=== PATIENT | male | born 1950 | race Caucasian/White ===

== ENCOUNTER → 2017-09-05 13:54 | Outpatient (CLI) | payer MEDICARE, MEDICAID, SELFPAY ==
--- NOTE | 2017-09-05 | DI.RAD.S_ITS ---
PROCEDURE: XR CHEST 2V INDICATIONS: SHORTNESS OF BREATH TECHNIQUE: 2 views of the chest were acquired. COMPARISON: [facility], CHEST 2 VIEW, 04/25/2014, 12:22. [facility], CHEST 2 VIEW, 08/12/2013, 14:53. [facility], CHEST 2 VIEW, 04/21/2017, 9:56. FINDINGS: Surgical changes and devices: None. Lungs and pleura: No pleural effusions or pneumothorax. Lungs are clear. Lung volumes are increased with flattening of the hemidiaphragms suggesting COPD. Mediastinum: Mediastinal contours are normal. Heart size is normal. Bones and chest wall: No suspicious bony abnormalities. Soft tissues appear unremarkable. IMPRESSION: No acute cardiopulmonary disease. COPD, no acute disease, no pneumothorax present. Dictated by: Alok CORONA Interpreted: Josh Fitzpatrick MD on 09/05/2017 at 14:08 Approved by: Neftali Jeff M.D. on 09/05/2017 at 16:06
== END ==
PROVIDERS: PCP Family Medicine; Visit Provider Registered Nurse
DX: R06.02 Shortness of breath (principal); J44.9 Chronic obstructive pulmonary disease, unspecified
CPT/HCPCS: 71046

== ENCOUNTER → 2019-05-21 16:40 | Outpatient (CLI) | payer MEDICARE, MEDICAID, SELFPAY ==
--- NOTE | 2019-05-21 16:42 | DI.RAD.S_ITS ---
PROCEDURE: XR CHEST 2V INDICATIONS: Productive cough, r/o COPD TECHNIQUE: 2 views of the chest were acquired. COMPARISON: [facility], CR, XR CHEST 2V, 09/05/2017, 13:37. FINDINGS: Surgical changes and devices: None. Lungs and pleura: Emphysematous change. Minimal infiltrate, extreme left lung base. No pleural effusions or pneumothorax. Mediastinum: Mediastinal contours are normal. Heart size is normal. Bones and chest wall: No suspicious bony abnormalities. Soft tissues appear unremarkable. IMPRESSION: COPD. Small focal pneumonia, left lung base. Dictated by: Wili Herrera M.D. on 05/21/2019 at 17:12 Approved by: Wili Herrera M.D. on 05/21/2019 at 17:13
== END ==
PROVIDERS: PCP Family Medicine; Referring Provider Family Medicine; Visit Provider Family Medicine
DX: J18.9 Pneumonia, unspecified organism (principal); R05 Cough; J44.9 Chronic obstructive pulmonary disease, unspecified
CPT/HCPCS: 71046

== ENCOUNTER → 2020-05-09 15:00 | Outpatient (CLI) | payer MEDICARE, MEDICAID, SELFPAY ==
--- NOTE | 2020-05-09 15:02 | DI.RAD.S_ITS ---
PROCEDURE: XR CHEST 2V INDICATIONS: cough TECHNIQUE: 2 views of the chest were acquired. COMPARISON: [facility], CR, XR CHEST 2V, 09/05/2017, 13:37. [facility], CR, XR CHEST 2V, 05/21/2019, 16:39. FINDINGS: Surgical changes and devices: None. Lungs and pleura: Lungs are hyperinflated. There are infiltrates lung base and small pleural effusions bilaterally. Chronic interstitial prominence is present. No pneumothorax. Mediastinum: Mediastinal contours are normal. Heart size is normal. Bones and chest wall: No suspicious bony abnormalities. Soft tissues appear unremarkable. IMPRESSION: 1. Infiltrates in lung base and small pleural effusions bilaterally. 2. Hyperinflation consistent with COPD. Dictated by: Alis Reyna M.D. on 05/09/2020 at 16:46 Approved by: Alis Reyna M.D. on 05/09/2020 at 16:48
== END ==
PROVIDERS: PCP Family Medicine; Referring Provider Family Medicine; Visit Provider Family Medicine
DX: R05 Cough (principal); J90 Pleural effusion, not elsewhere classified
CPT/HCPCS: 71046

== ENCOUNTER 2020-09-06 12:14 | Observation (INO) | payer MEDICARE, MEDICAID, SELFPAY ==
[2020-09-06] VITALS (14 sets, daily range): BP systolic 102–144; BP diastolic 68–92; PULSE 79–104; RESP 18–28; TEMP 36.4–36.9; O2SAT 85–95; BMI 19.5
--- NOTE | 2020-09-06 12:22 | ED_ITS ---
HPI - SOB/Dyspnea General Chief Complaint: Shortness of Breath/Dyspnea Stated Complaint: LOW OXYGEN Time Seen by Provider: 09/06/20 12:18 Source: patient Mode of arrival: Wheelchair Limitations: no limitations History of Present Illness HPI Narrative: 70-year-old male daily smoker with history of COPD presents in a wheelchair from his primary care office due to low oxygen in the 70s and 80s. He states he has been feeling poorly for the past few weeks and has been coughing more than normal. He states he has been hospitalized in months if not years. He denies any fever or chills. He has no chest pain and denies recent travel, history of blood clot or known cancer. Minimal exertion makes him profoundly short of breath. He denies any weight gain or swelling of lower extremities. He was at his primary care office for evaluation and upon realization of his abnormal vitals was put on 2 L of oxygen and sent down here in a wheelchair MD Complaint: shortness of breath and cough Onset (ago): day(s) Severity: severe Consistency/Duration: constant Relieving factors: oxygen and rest Exacerbating factors: exertion Known history of: COPD Associated symptoms: cough Treatment prior to arrival: oxygen Related Data Home oxygen amount: 2 liters Home Medications Medication Instructions Recorded Confirmed albuterol sulfate 90 mcg/actuation 2 puff INHALATION QID PRN gram 09/06/20 aerosol inhaler Previous Rx's Medication Instructions Recorded ipratropium 20 mcg-albuterol 100 1 puff INHALATION Q4H #4 g 05/09/20 mcg/actuation mist for inhalation Allergies Allergy/AdvReac Type Severity Reaction Status Date / Time No Known Drug Allergies Allergy Verified 09/06/20 11:25 Review of Systems Constitutional Constitutional: Denies chills, Denies fatigue, Denies fever(s), Denies frequent falls, Denies lethargy and Denies weakness Eyes Eyes: Denies change in vision, Denies eye discharge, Denies irritation and Denies loss of vision ENT Ears, Nose, Mouth, and Throat: Denies change in voice, Denies dizziness, Denies neck pain, Denies sore throat and Denies throat swelling Cardiovascular Cardiovascular: Denies chest pain, Denies irregular heart rhythm, Denies ligh theadedness, Denies palpitations, Reports dyspnea, Denies dyspnea on exertion and Denies orthopnea Respiratory Respiratory: Reports cough, Reports dyspnea, Denies dyspnea on exertion and Denies wheezing Gastrointestinal Gastrointestinal: Denies abdominal pain, Denies change in bowel habits, Denies diarrhea, Denies nausea and Denies vomiting Musculoskeletal Musculoskeletal: Denies neck pain and Denies numbness Integumentary/Breasts Skin/Breast: Denies pruritus, Denies erythema, Denies rash and Denies wounds Neurologic Neurologic: Denies behavioral changes, Denies confusion, Denies dizziness, Denies frequent falls, Denies loss of vision, Denies numbness and Denies weakness Psychiatric Psychiatric: Denies anxiety, Denies behavioral changes, Denies confusion, Denies depression, Denies homicidal ideation and Denies suicidal ideation Endocrine Endocrine: Denies fatigue, Denies flushing and Denies palpitations Hematologic/Lymphatic Hematologic/Lymphatic: Denies easy bruising Allergic/Immunologic Allergic/Immunologic: Denies urticaria, Denies throat swelling and Denies wheezing Patient History Medical History (Updated 09/06/20 @ 14:27 by Sunday Bhakta DO) Acute bronchitis Chronic cough (2017) Fractures (Unknown) Partial blindness (Unknown) Schizophrenia (Unknown) Substance abuse (Unknown) Surgical History History of open reduction and internal fixation (ORIF) procedure (Unknown) Social History Smoking Status: Current every day smoker (1/2 ppd ) Tobacco: How many years used: 45 quit status: considering quitting second hand exposure: Yes alcohol intake: current (18 beers per day ) substance use type: does not use Smoking Status: Current every day smoker (1/2 ppd ) Exam Narrative Exam Narrative: GENERAL: [70] year old patient appears stated age. Thin, in moderate distress, increased work of breathing, 5 word sentences HEAD: Atraumatic. Normocephalic. EYES: Pupils equal round and reactive. Extraocular motions intact. No scleral icterus. No injection or drainage. ENT: Nose without bleeding, purulent drainage. Throat without erythema, tonsillar hypertrophy or exudate. Airway patent. NECK: Trachea midline. Non tender CARDIOVASCULAR: Regular rate and rhythm without murmurs, gallops, or rubs. RESPIRATORY: Decreased breath sounds bilaterally with prolonged expiratory phase, wheezes in bilateral apices GASTROINTESTINAL: Abdomen soft, non-tender, nondistended. EXTREMITIES: No edema or joint tenderness. BACK: Nontender without deformity or crepitance. No flank tenderness. NEURO: AOx3. SKIN: No rash or erythema of visible areas Initial Vital Signs Initial Vital Signs: Vital Signs Temperature 97.5 F L 09/06/20 12:16 Pulse Rate 100 H 09/06/20 12:16 Respiratory Rate 18 09/06/20 12:16 Blood Pressure 144/92 H 09/06/20 12:16 Pulse Oximetry 87 L 09/06/20 12:16 Course Orders Ordered: ED Orders 09/06/20 12:23 Consult to Respiratory Therapy Evaluate & Treat EKG-12 Lead Stat 09/06/20 12:24 XR chest 1V Stat 09/06/20 12:32 Blood Culture Stat Complete Blood Count AUTO DIFF Stat Comprehensive Metabolic Panel Stat D Dimer Stat Lactate (Lactic Acid) Stat Magnesium Stat NT-proBNP (BNP-Adult 18+) Stat Procalcitonin Stat Troponin & CK Cardiac Panel Stat 09/06/20 12:50 Arterial Blood Gas Stat 09/06/20 12:52 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) Stat 09/06/20 13:09 CT angio chest PE protocol Stat Discontinued Medications Albuterol/Ipratropium (Albuterol/Ipratropium 3 Ml Ampul) 3 ml INH NOW ONE Stop: 09/06/20 12:24 Last Admin: 09/06/20 13:04 Dose: 3 ml Documented by: QUINN Sodium Chloride (Normal Saline 0.9%) 1,000 mls @ 1,000 mls/hr IV BOLUS ONE Stop: 09/06/20 13:22 Last Admin: 09/06/20 13:01 Dose: 1,000 mls/hr Documented by: ELHAM Levofloxacin (Levaquin) 750 mg in 150 mls @ 100 mls/hr IV NOW ONE Stop: 09/06/20 13:52 Last Admin: 09/06/20 13:50 Dose: 100 mls/hr Documented by: ELHAM Methylprednisolone (Methylprednisolone 125 Mg/2 Ml Vial) 125 mg IV NOW ONE Stop: 09/06/20 12:24 Last Admin: 09/06/20 13:01 Dose: 125 mg Documented by: ELHAM Vital Signs Vital signs: Vital Signs - 8 hr 09/06/20 12:16 09/06/20 13:21 Temperature 97.5 F L Pulse Rate 100 H 79 Respiratory Rate 18 20 Blood Pressure 144/92 H Pulse Oximetry 87 L 91 MDM - SOB/Dyspnea Lab Data Result diagrams: 09/06/20 12:32 09/06/20 12:32 Labs: Lab Results 09/06/20 09/06/20 09/06/20 Range/Units 12:32 12:32 12:32 WBC 11.5 H (4.5-11.0) X10^3/uL RBC 5.28 (4.5-5.9) X10^6/uL Hgb 16.4 (13.5-17.5) g/dL Hct 49.3 (41-53) % MCV 93.3 (80-100) fL MCH 31.0 (26-34) PG MCHC 33.2 (30-36) % RDW 13.9 (11.6-14.8) % Plt Count 411 H (150-400) X10^3/uL Neut % (Auto) 68.3 (50-75) % Lymph % (Auto) 16.7 L (25-40) % [place] % (Auto) 10.9 (3-14) % Eos % (Auto) 2.9 (2-4) % Baso % (Auto) 1.2 (0-2) % Neut # (Auto) 7900 H (1702-0181) /uL Lymph # (Auto) 1900 (9227-7946) /uL [place] # (Auto) 1300 H (0-900) /uL Eos # (Auto) 300 (0-450) /uL Baso # (Auto) 100 (0-100) /uL D-Dimer 1024 H (<230) ng/mL ABG pH (7.35-7.45) ABG pCO2 (35-45) mmHg ABG pO2 (80-100) mmHg ABG HCO3 (22-26) mmol/L ABG Total CO2 (21-31) mmol/L ABG O2 Saturation (95-100) % ABG Base Excess (-2-2) mmol/L FiO2 Sodium 133 L (137-145) mmol/L Potassium 4.1 (3.4-5.1) mmol/L Chloride 97 L (98-107) mmol/L Carbon Dioxide 29 (22-32) mmol/L BUN 4 L (9-20) mg/dL Creatinine 0.57 L (0.66-1.25) mg/dL Estimated GFR > 60.0 (>60) mL/min BUN/Creatinine Ratio 7.0 (6-22) Glucose 83 (80-110) mg/dL Lactate (0.7-2.1) mmol/L Calcium 9.4 (8.4-10.2) mg/dL Magnesium 1.9 (1.6-2.3) mg/dL Total Bilirubin 0.6 (0.2-1.3) mg/dL AST 34 (17-59) IU/L ALT 12 (<50) IU/L Alkaline Phosphatase 77 (38-126) U/L Total Creatine Kinase 47 L (55-170) U/L CK-MB (CK-2) TNP CK-MB (CK-2) Rel Index TNP Troponin I < 0.012 (0.01-0.034) ng/mL NT-Pro-B Natriuret Pep (<125) pg/mL Total Protein 7.9 (6.3-8.2) g/dL Albumin 4.2 (3.5-5.0) g/dL Globulin 3.7 (1.7-4.1) g/dL Albumin/Globulin Ratio 1.1 (1.0-2.8) Procalcitonin 0.03 (<0.5) ng/mL SARS-CoV-2 (PCR) (Negative) 09/06/20 09/06/20 09/06/20 Range/Units 12:32 12:32 12:50 WBC (4.5-11.0) X10^3/uL RBC (4.5-5.9) X10^6/uL Hgb (13.5-17.5) g/dL Hct (41-53) % MCV (80-100) fL MCH (26-34) PG MCHC (30-36) % RDW (11.6-14.8) % Plt Count (150-400) X10^3/uL Neut % (Auto) (50-75) % Lymph % (Auto) (25-40) % [place] % (Auto) (3-14) % Eos % (Auto) (2-4) % Baso % (Auto) (0-2) % Neut # (Auto) (2087-4485) /uL Lymph # (Auto) (9091-8237) /uL [place] # (Auto) (0-900) /uL Eos # (Auto) (0-450) /uL Baso # (Auto) (0-100) /uL D-Dimer (<230) ng/mL ABG pH 7.39 (7.35-7.45) ABG pCO2 45.3 H (35-45) mmHg ABG pO2 57 L (80-100) mmHg ABG HCO3 27 H (22-26) mmol/L ABG Total CO2 29 (21-31) mmol/L ABG O2 Saturation 89 L (95-100) % ABG Base Excess 2.0 (-2-2) mmol/L FiO2 0.21 Sodium (137-145) mmol/L Potassium (3.4-5.1) mmol/L Chloride (98-107) mmol/L Carbon Dioxide (22-32) mmol/L BUN (9-20) mg/dL Creatinine (0.66-1.25) mg/dL Estimated GFR (>60) mL/min BUN/Creatinine Ratio (6-22) Glucose (80-110) mg/dL Lactate 1.4 (0.7-2.1) mmol/L Calcium (8.4-10.2) mg/dL Magnesium (1.6-2.3) mg/dL Total Bilirubin (0.2-1.3) mg/dL AST (17-59) IU/L ALT (<50) IU/L Alkaline Phosphatase (38-126) U/L Total Creatine Kinase (55-170) U/L CK-MB (CK-2) CK-MB (CK-2) Rel Index Troponin I (0.01-0.034) ng/mL NT-Pro-B Natriuret Pep 174 H (<125) pg/mL Total Protein (6.3-8.2) g/dL Albumin (3.5-5.0) g/dL Globulin (1.7-4.1) g/dL Albumin/Globulin Ratio (1.0-2.8) Procalcitonin (<0.5) ng/mL SARS-CoV-2 (PCR) (Negative) 09/06/20 Range/Units 12:52 WBC (4.5-11.0) X10^3/uL RBC (4.5-5.9) X10^6/uL Hgb (13.5-17.5) g/dL Hct (41-53) % MCV (80-100) fL MCH (26-34) PG MCHC (30-36) % RDW (11.6-14.8) % Plt Count (150-400) X10^3/uL Neut % (Auto) (50-75) % Lymph % (Auto) (25-40) % [place] % (Auto) (3-14) % Eos % (Auto) (2-4) % Baso % (Auto) (0-2) % Neut # (Auto) (3200-8970) /uL Lymph # (Auto) (7913-0173) /uL [place] # (Auto) (0-900) /uL Eos # (Auto) (0-450) /uL Baso # (Auto) (0-100) /uL D-Dimer (<230) ng/mL ABG pH (7.35-7.45) ABG pCO2 (35-45) mmHg ABG pO2 (80-100) mmHg ABG HCO3 (22-26) mmol/L ABG Total CO2 (21-31) mmol/L ABG O2 Saturation (95-100) % ABG Base Excess (-2-2) mmol/L FiO2 Sodium (137-145) mmol/L Potassium (3.4-5.1) mmol/L Chloride (98-107) mmol/L Carbon Dioxide (22-32) mmol/L BUN (9-20) mg/dL Creatinine (0.66-1.25) mg/dL Estimated GFR (>60) mL/min BUN/Creatinine Ratio (6-22) Glucose (80-110) mg/dL Lactate (0.7-2.1) mmol/L Calcium (8.4-10.2) mg/dL Magnesium (1.6-2.3) mg/dL Total Bilirubin (0.2-1.3) mg/dL AST (17-59) IU/L ALT (<50) IU/L Alkaline Phosphatase (38-126) U/L Total Creatine Kinase (55-170) U/L CK-MB (CK-2) CK-MB (CK-2) Rel Index Troponin I (0.01-0.034) ng/mL NT-Pro-B Natriuret Pep (<125) pg/mL Total Protein (6.3-8.2) g/dL Albumin (3.5-5.0) g/dL Globulin (1.7-4.1) g/dL Albumin/Globulin Ratio (1.0-2.8) Procalcitonin (<0.5) ng/mL SARS-CoV-2 (PCR) Negative (Negative) Urine Dip Bedside Urine Glucose Negative Bedside Urine Bilirubin - Negative Bedside Urine Ketone - Negative Urine Specific [place] 1.015 Bedside Urine Occult Blood - Negative Bedside Urine pH 6.0 Bedside Urine Protein - Negative Bedside Urine Urobilinogen - Negative Bedside Urine Nitrite - Negative Bedside Urine Leukocytes - Negative Esterase Imaging Data Chest x-ray: Radiologist's Impression: [address] [id number] ReportSigned Patient: Fabiano Rivera EMR#: [id number]: 1950cct:[id number]/Sex: 70 / MDate of Service: 09/06/20Loc: EDAccession Number: [id number] Procedure: XR chest 1V Ordering Provider: Sunday Bhakta D.O. PROCEDURE: XR CHEST 1V INDICATIONS: cough, SOB, hypoxemia TECHNIQUE: One view of the chest was acquired. COMPARISON: [facility], , XR CHEST 2V, 05/09/2020, 15:03. [facility], CR, XR CHEST 2V, 05/21/2019, 16:39. FINDINGS: Surgical changes and devices: None. Lungs and pleura: Lungs are abnormal, with pulmonary hyperexpansion and what appears to be potentially a mild or early pneumonia at the left lung base.. No pleural effusions or pneumothorax. Mediastinum: Mediastinal contours appear normal. Heart size is normal. Bones and chest wall: No suspicious bony lesions. Overlying soft tissues appear unremarkable. IMPRESSION: Possible mild or early pneumonia at the left lung base, just above the diaphragm. Pulmonary hyperexpansion, consistent with COPD. Dictated by: Neftali Jeff M.D. on 09/06/2020 at 13:08 CT scan - chest: Radiologist's Impression: [address] [id number] Scan ReportSigned Patient: Fabiano Rivera EMR#: [id number]: 1950cct:[id number]/Sex: 70 / MDate of Service: 09/06/20Loc: EDAccession Number: [id number] Procedure: CT angio chest PE protocol Ordering Provider: Sunday Bhakta D.O. PROCEDURE: CT ANGIO CHEST PE PROTOCOL INDICATIONS: hypoxemia, cough, tachycardia, Dimer critical TECHNIQUE: After the administration of intravenous contrast, 2 mm thick sections acquired from the pulmonary apices to the posterior costophrenic angles. 3-dimensional maximum intensity projection (MIP) coronal and sagittal reformats were then acquired through the thorax. For radiation dose reduction, the following was used: automated exposure control, adjustment of mA and/or kV according to patient size. COMPARISON: [facility], CT, THORAX WITHOUT CONTRAST, 06/12/2017, 12:53. FINDINGS: Image quality: Excellent. Pulmonary arteries: Pulmonary arteries are normal in size, and demonstrate no intraluminal filling defects to suggest central pulmonary embolism. Lungs and pleura: No focal infiltrate. Emphysematous changes noted in the lung apices. There is central bronchial wall smooth thickening noted bilaterally which may reflect an element of bronchitis. Bibasilar atelectasis noted, with minimal nodularity.. Pleural calcification noted on the right, stable from the prior. There is a 7 mm spiculated nodule in the mid left upper lobe Mediastinum: Heart size is normal, without pericardial effusion. Several prominent mediastinal nodes are present measuring up to 1.4 cm and the aortic pulmonary window. Small bilateral hilar nodes measure up to 1.2 cm in short axis.. Thoracic aorta is normal in caliber and enhancement. Esophagus is normal in caliber, without hiatal hernia. Dense coronary artery vascular calcification present Bones and chest wall: No suspicious bony lesions. Ribs and thoracic spine appear intact throughout. Thyroid gland unremarkable. No axillary or supraclavicular adenopathy. Abdomen: Visualized upper abdominal solid organs appear normal in the early arterial phase of enhancement. IMPRESSION: No evidence of pulmonary embolism, aortic dissection or aneurysm. Smooth central bronchial wall thickening associated with mediastinal adenopathy may reflect bronchitis with reactive adenopathy. Left upper lobe 7 mm spiculated nodule with bibasilar nodular atelectasis and mediastinal adenopathy, new from 2018 study, in a background of emphysematous changes. While this may reflect inflammatory or infectious nodule, consider follow-up PET-CT and/or six-month follow-up to assess for neoplastic etiology Dictated by: Tereso Lopez M.D. on 09/06/2020 at 12:56 Approved by: Tereso Lopez M.D. on 09/06/2020 at 13:16 MDM Narrative Medical decision making narrative: Patient quite hypoxemic on initial exam with increased work of breathing. Labs and imaging have been reassuring. ABG however does note PO2 of 57 on room air. He does feel slight improvement after above-stated therapies but minimal exertion including and ambulation to the bathroom, which is right next door causes significant decompensation and pulse ox back into the 80s. Patient requires hospitalization for stabilization of his condition. Discharge Plan Departure Patient Disposition: Admitted As Inpatient Clinical Impression: Acute exacerbation of chronic obstructive pulmonary disease, Acute hypoxemic respiratory failure
--- NOTE | 2020-09-06 12:32 | PC.NURSE ---
pt states he drinks about 18 beers a day.
[2020-09-06 12:55] LABS: Add Manual Diff / Slide Review NO; Basophils Absolute Auto 100 /uL (0-100); Basophils Percent Auto 1.2 % (0-2); Eosinophils Absolute Auto 300 /uL (0-450); Eosinophils Percent Auto 2.9 % (2-4); Hematocrit 49.3 % (41-53); Hemoglobin 16.4 g/dL (13.5-17.5); Lymphocytes Absolute Auto 1900 /uL (1100-4500); Lymphocytes Percent Auto 16.7 % (25-40); Mean Corpuscular HGB Conc 33.2 % (30-36); Mean Corpuscular Volume 93.3 fL (80-100); Monocytes Absolute Auto 1300 /uL (0-900); Monocytes Percent Auto 10.9 % (3-14); Neutrophils Absolute Auto 7900 /uL (1500-7000); Neutrophils Percent Auto 68.3 % (50-75); Platelet Count 411 X10^3/uL (150-400); Red Blood Cell Count 5.28 X10^6/uL (4.5-5.9); Red Cell Distribution Width 13.9 % (11.6-14.8); White Blood Cell Count 11.5 X10^3/uL (4.5-11.0)
[2020-09-06 12:59] LABS: D Dimer 1024 ng/mL (<230)
[2020-09-06] MEDS: methylPREDNISolone 125 MG/2 ML VIAL IV (13:01)
[2020-09-06] MEDS: SODIUM CHLORIDE 0.9% 1,000 ML 1000 ML IV (13:01)
[2020-09-06] MEDS: ALBUTEROL/IPRATROPIUM 3 ML AMPUL INH ×2 (13:04→22:22)
[2020-09-06 13:05] LABS: Lactate (Lactic Acid) 1.4 mmol/L (0.7-2.1)
[2020-09-06 13:06] LABS: Alanine Aminotransferase 12 IU/L (<50); Albumin 4.2 g/dL (3.5-5.0); Albumin Globulin Ratio 1.1 (1.0-2.8); Alkaline Phosphatase 77 U/L (38-126); Aspartate Aminotransferase 34 IU/L (17-59); Bilirubin Total 0.6 mg/dL (0.2-1.3); Blood Urea Nitrogen 4 mg/dL (9-20); Calcium 9.4 mg/dL (8.4-10.2); Carbon Dioxide 29 mmol/L (22-32); Chloride 97 mmol/L (98-107); Creatine Kinase 47 U/L (55-170); Estimated Glomerular Filt Rate > 60.0 mL/min (>60); Globulin 3.7 g/dL (1.7-4.1); Glucose 83 mg/dL (80-110); Magnesium 1.9 mg/dL (1.6-2.3); Potassium 4.1 mmol/L (3.4-5.1); Sodium 133 mmol/L (137-145); Total Protein 7.9 g/dL (6.3-8.2)
[2020-09-06 13:08] LABS: HEMOLYSIS 51 (0-50)
--- NOTE | 2020-09-06 13:09 | DI.CT.S_ITS ---
PROCEDURE: CT ANGIO CHEST PE PROTOCOL INDICATIONS: hypoxemia, cough, tachycardia, Dimer critical TECHNIQUE: After the administration of intravenous contrast, 2 mm thick sections acquired from the pulmonary apices to the posterior costophrenic angles. 3-dimensional maximum intensity projection (MIP) coronal and sagittal reformats were then acquired through the thorax. For radiation dose reduction, the following was used: automated exposure control, adjustment of mA and/or kV according to patient size. COMPARISON: [facility], CT, THORAX WITHOUT CONTRAST, 06/12/2017, 12:53. FINDINGS: Image quality: Excellent. Pulmonary arteries: Pulmonary arteries are normal in size, and demonstrate no intraluminal filling defects to suggest central pulmonary embolism. Lungs and pleura: No focal infiltrate. Emphysematous changes noted in the lung apices. There is central bronchial wall smooth thickening noted bilaterally which may reflect an element of bronchitis. Bibasilar atelectasis noted, with minimal nodularity.. Pleural calcification noted on the right, stable from the prior. There is a 7 mm spiculated nodule in the mid left upper lobe Mediastinum: Heart size is normal, without pericardial effusion. Several prominent mediastinal nodes are present measuring up to 1.4 cm and the aortic pulmonary window. Small bilateral hilar nodes measure up to 1.2 cm in short axis.. Thoracic aorta is normal in caliber and enhancement. Esophagus is normal in caliber, without hiatal hernia. Dense coronary artery vascular calcification present Bones and chest wall: No suspicious bony lesions. Ribs and thoracic spine appear intact throughout. Thyroid gland unremarkable. No axillary or supraclavicular adenopathy. Abdomen: Visualized upper abdominal solid organs appear normal in the early arterial phase of enhancement. IMPRESSION: No evidence of pulmonary embolism, aortic dissection or aneurysm. Smooth central bronchial wall thickening associated with mediastinal adenopathy may reflect bronchitis with reactive adenopathy. Left upper lobe 7 mm spiculated nodule with bibasilar nodular atelectasis and mediastinal adenopathy, new from 2018 study, in a background of emphysematous changes. While this may reflect inflammatory or infectious nodule, consider follow-up PET-CT and/or six-month follow-up to assess for neoplastic etiology Dictated by: Tereso Lopez M.D. on 09/06/2020 at 12:56 Approved by: Tereso Lopez M.D. on 09/06/2020 at 13:16
[2020-09-06 13:15] LABS: NT-proBNP (BNP-Adult 18+) 174 pg/mL (<125)
[2020-09-06 13:18] LABS: Troponin I < 0.012 ng/mL (0.01-0.034)
[2020-09-06 13:22] LABS: Procalcitonin 0.03 ng/mL (<0.5)
[2020-09-06] MEDS: levoFLOXacin 750 MG/150 ML PIGGYBACK 100 MG IV (13:50)
[2020-09-06 13:56] LABS: COVID19 - ADMIT (NP swab/PCR) Negative (Negative)
[2020-09-06 14:24] LABS: Fractionated Inspired Oxygen 0.21; HCO3 ABG 27 mmol/L (22-26); Oxygen Saturation ABG 89 % (95-100); PCO2 ABG 45.3 mmHg (35-45); PO2 ABG 57 mmHg (80-100); TCO2 ABG 29 mmol/L (21-31); pH ABG 7.39 (7.35-7.45)
--- NOTE | 2020-09-06 16:59 | PM.HP.1 ---
History of Present Illness History of Present Illness Date Patient Seen: 09/06/20 Time Patient Seen: 16:01 Chief complaint: LOW OXYGEN Narrative: Mr. Rivera is a 70M who is a daily smoker, EtOH abuse, COPD who comes in from his PCP for O2 sats in the 70s-80s. He states he has been short of breath for a few weeks, he has been having a cough that is productive of mild amounts of sputum. He has no fevers/chills. He has right sided chest pain. He gets short of breath with minimal exertion. He is not on oxygen at home. He does have 2 inhalers at home, one he uses twice a day, another is a rescue which he has not been using. He has lost 10lbs in the last few weeks. He has right sided chest pain that is tender to touch. In the ED, workup was done he was noted to be tachycardic in the 100s-110s and sats in the 80s on room air. He was placed on oxygen. He received methylpred, and nebulizers, and azithromycin. When I saw him after this he was trialed off oxygen and he dropped to 84-85% on room air while talking. Labs notable for WBC of 11.5, hgb 16.4, d-dimer 1024. ABG showed pCO2 of 45, paO2 of 57. Creatinine 0.57. Trop ok. Lactate ok. Procalcitonin 0.03. COVID negative, respiratory panel negative. Chest xray shows possible early pneumonia at left lung base, hyperexpanded lungs. CTA shows no PE, bronchial wall thickening. Left upper lobe 7mm spiculated nodule, bibasilar atelectasis. He was admitted for further treatment. Family history: Mother with diabetes Patient History Medical History Acute bronchitis Atypical ductal hyperplasia of right breast Chronic cough (2017) Fractures (Unknown) Partial blindness (Unknown) Schizophrenia (Unknown) Substance abuse (Unknown) Surgical History History of open reduction and internal fixation (ORIF) procedure (Unknown) Family & Social History Social History: household members none Prior Living Arrangements House Safety & Behavioral: Feels Safe in Current Yes Environment Been Physically Hurt or No Threatened By a Person Suicidal Ideation Description None Suicide Plan Description No Plan Tobacco & Substance use: Tobacco type cigarettes Smoking Status Current every day smoker Smoking packs per day 0.5 alcohol intake current alcohol intake frequency 3 or more drinks per day Substance Use Type marijuana Meds Home Medications and Allergies Home Medications Medication Instructions Recorded Confirmed Type ipratropium 20 mcg-albuterol 100 1 puff INHALATION Q4H #4 g 05/09/20 09/06/20 Rx mcg/actuation mist for inhalation albuterol sulfate 90 mcg/actuation 2 puff INHALATION QID PRN gram 09/06/20 09/06/20 History aerosol inhaler Allergies Allergy/AdvReac Type Severity Reaction Status Date / Time No Known Drug Allergies Allergy Verified 09/06/20 11:25 Review of Systems Review of Systems Narrative: 14 systems reviewed and negative aside from HPI Exam Vital Signs (past 8 hours): - 09/06/20 12:16 09/06/20 12:23 09/06/20 12:30 Temperature 97.5 F L Pulse Rate 100 H 95 H 93 H Respiratory Rate 18 Blood Pressure 144/92 H Pulse Oximetry 87 L 92 85 L 09/06/20 12:32 09/06/20 13:00 09/06/20 13:21 Temperature Pulse Rate 92 H 88 79 Respiratory Rate 20 Blood Pressure 126/76 128/81 Pulse Oximetry 90 L 91 91 09/06/20 13:30 09/06/20 14:00 09/06/20 14:30 Temperature Pulse Rate 80 88 88 Respiratory Rate Blood Pressure 122/71 Pulse Oximetry 94 93 94 09/06/20 15:00 09/06/20 15:30 09/06/20 16:55 Temperature 97.6 F Pulse Rate 104 H 102 H 97 H Respiratory Rate 28 H 21 Blood Pressure 123/75 130/72 Pulse Oximetry 88 L 95 95 Oxygen Delivery Method Room Air Oxygen Flow Rate 0 Narrative Exam Narrative: GEN: no acute distress HEENT: PERRL, moist mucous membranes NECK: no JVD, trachea midline CV: RRR, no murmurs PULM: wheezes scattered bilaterally ABD: thin, soft, nontender, nondistended, no organomegaly, normal bowel sounds EXT: warm and well perfused with no edema NEURO: AAOx3, moving all extremities SKIN: no rashes noted PSYCH: pleasant Objective Labs Result Diagrams: 09/06/20 12:32 09/06/20 12:32 Labs: Laboratory Results - last 24 hr 09/06/20 09/06/20 09/06/20 12:32 12:32 12:32 WBC 11.5 H RBC 5.28 Hgb 16.4 Hct 49.3 MCV 93.3 MCH 31.0 MCHC 33.2 RDW 13.9 Plt Count 411 H Neut % (Auto) 68.3 Lymph % (Auto) 16.7 L [place] % (Auto) 10.9 Eos % (Auto) 2.9 Baso % (Auto) 1.2 Neut # (Auto) 7900 H Lymph # (Auto) 1900 [place] # (Auto) 1300 H Eos # (Auto) 300 Baso # (Auto) 100 D-Dimer 1024 H ABG pH ABG pCO2 ABG pO2 ABG HCO3 ABG Total CO2 ABG O2 Saturation ABG Base Excess FiO2 Sodium 133 L Potassium 4.1 Chloride 97 L Carbon Dioxide 29 BUN 4 L Creatinine 0.57 L Estimated GFR > 60.0 BUN/Creatinine Ratio 7.0 Glucose 83 Lactate Calcium 9.4 Magnesium 1.9 Total Bilirubin 0.6 AST 34 ALT 12 Alkaline Phosphatase 77 Total Creatine Kinase 47 L CK-MB (CK-2) TNP CK-MB (CK-2) Rel Index TNP Troponin I < 0.012 NT-Pro-B Natriuret Pep Total Protein 7.9 Albumin 4.2 Globulin 3.7 Albumin/Globulin Ratio 1.1 Procalcitonin 0.03 SARS-CoV-2 (PCR) 09/06/20 09/06/20 09/06/20 12:32 12:32 12:50 WBC RBC Hgb Hct MCV MCH MCHC RDW Plt Count Neut % (Auto) Lymph % (Auto) [place] % (Auto) Eos % (Auto) Baso % (Auto) Neut # (Auto) Lymph # (Auto) [place] # (Auto) Eos # (Auto) Baso # (Auto) D-Dimer ABG pH 7.39 ABG pCO2 45.3 H ABG pO2 57 L ABG HCO3 27 H ABG Total CO2 29 ABG O2 Saturation 89 L ABG Base Excess 2.0 FiO2 0.21 Sodium Potassium Chloride Carbon Dioxide BUN Creatinine Estimated GFR BUN/Creatinine Ratio Glucose Lactate 1.4 Calcium Magnesium Total Bilirubin AST ALT Alkaline Phosphatase Total Creatine Kinase CK-MB (CK-2) CK-MB (CK-2) Rel Index Troponin I NT-Pro-B Natriuret Pep 174 H Total Protein Albumin Globulin Albumin/Globulin Ratio Procalcitonin SARS-CoV-2 (PCR) 09/06/20 12:52 WBC RBC Hgb Hct MCV MCH MCHC RDW Plt Count Neut % (Auto) Lymph % (Auto) [place] % (Auto) Eos % (Auto) Baso % (Auto) Neut # (Auto) Lymph # (Auto) [place] # (Auto) Eos # (Auto) Baso # (Auto) D-Dimer ABG pH ABG pCO2 ABG pO2 ABG HCO3 ABG Total CO2 ABG O2 Saturation ABG Base Excess FiO2 Sodium Potassium Chloride Carbon Dioxide BUN Creatinine Estimated GFR BUN/Creatinine Ratio Glucose Lactate Calcium Magnesium Total Bilirubin AST ALT Alkaline Phosphatase Total Creatine Kinase CK-MB (CK-2) CK-MB (CK-2) Rel Index Troponin I NT-Pro-B Natriuret Pep Total Protein Albumin Globulin Albumin/Globulin Ratio Procalcitonin SARS-CoV-2 (PCR) Negative Assessment & Plan Assessment & Plan narrative: Mr. Rivera is a 70M with PMH of COPD who presents with hypoxemia secondary to acute COPD exacerbation. 1. Acute COPD exacerbation, with acute respiratory failure, with hypoxemia -imaging with no evidence of pneumnia, procalcitonin ok, not volume overloaded, BNP ok -lungs wheezing and patient with sputum production consistent with COPD flare -will order nebs, azithromycin, steroids -does not have oxygen at home, may not be interested if is smoking consistently 2. Left upper lobe spiculate nodule -7mm in size, new from 2018 study -etiology not clear, but possibly neoplastic -patient has mild unintentional weight loss -will need follow up as outpatient with either PET scan or interval CT chest in a few months 3. EtOH abuse -drinks over a pack of beer a day -he has no interest in quitting -will order him for EtOH with meals to prevent withdrawal 4. Protein calorie malnutrition -BMI of 18.6 -dietary consult DIET: regular IVF: none DVT ppx: lovenox 40U sc Code, DNR, proxy is Tico a friend Quality MIPS - Admit I confirm the patient?s Advance Care Plan is present, Code status is documented, Surrogate decision maker is in patient?s record [If Yes, STOP here]: Yes
[2020-09-06] MEDS: AZITHROMYCIN 500 MG in DEXTROSE 5% IN WATER 250 ML IV (17:06)
[2020-09-06 17:14] LABS: Adenovirus Not Detected (Not Detect); B. parapertussis Not Detected (Not Detecte); Bordetella pertussis Not Detected (Not Detecte); Chlamydophila pneumoniae Not Detected (Not Detect); Coronavirus 229E Not Detected (Not Detect); Coronavirus HKU1 Not Detected (Not Detect); Coronavirus NL 63 Not Detected (Not Detect); Coronavirus OC43 Not Detected (Not Detect); Human Metapneumovirus Not Detected (Not Detect); Human Rhinovirus/Enterovirus Not Detected (Not Detect); Influenza A Not Detected (Not Detect); Influenza B Not Detected (Not Detect); Mycoplasma pneumoniae Not Detected (Not Detect); Parainfluenza Virus 1 Not Detected (Not Detect); Parainfluenza Virus 2 Not Detected (Not Detect); Parainfluenza Virus 3 Not Detected (Not Detect); Parainfluenza Virus 4 Not Detected (Not Detect); Respiratory Syncytial Virus Not Detected (Not Detect); SARS- CoV-2 Not Detected (Not Detecte)
--- NOTE | 2020-09-06 21:13 | PC.ADMIT ---
[id number] Admission Note: The patient,Fabiano Rivera,70 y/o, was given written information regarding hospital policies, unit procedures and contact persons. Patient's smoking status: Current every day smoker. Vital Signs - 8 hr 09/06/20 13:21 09/06/20 13:30 09/06/20 14:00 Temperature Pulse Rate 79 80 88 Respiratory Rate 20 Blood Pressure 122/71 Pulse Oximetry 91 94 93 09/06/20 14:30 09/06/20 15:00 09/06/20 15:30 Temperature Pulse Rate 88 104 H 102 H Respiratory Rate 28 H Blood Pressure 123/75 Pulse Oximetry 94 88 L 95 09/06/20 16:55 09/06/20 20:04 Temperature 97.6 F 98.4 F Pulse Rate 97 H 82 Respiratory Rate 21 18 Blood Pressure 130/72 102/68 Pulse Oximetry 95 90 L Patient admitted to under hospitalists care from ED. Patient states he was sent to the ED from his PCP office because his oxygenation saturations were low. Patient is A/Ox4, 94% on RA, on continuous pulse ox, able to ambulate from wheelchair to bed. Patient states he drinks 18 beers a day and says he's been through detox many times and has never had a seizure. Seizure precautions are in place anyway. Lung sounds are diminished, particularly in lower lobes. Patient is a smoker and has hx of COPD. Occasional cough with no sputum. Patient instructed to spit any sputum into sample cup provided if he does. Patient has very dry skin but is otherwise intact. Patient's HR is elevated slightly, low 100's, BP is soft but WNL. Patient says he does not like being in the hospital or taking any medications. COVID test is negative, patient says he had COVID early last year. Patient declined SCDs. Tele monitor is on. Call light within reach, bed alarm on.
[2020-09-07] VITALS (7 sets, daily range): BP systolic 90–135; BP diastolic 67–71; PULSE 81–104; RESP 16–22; TEMP 36.1–37; O2SAT 90–94
[2020-09-07 04:47] LABS: Add Manual Diff / Slide Review NO; Basophils Absolute Auto 0 /uL (0-100); Basophils Percent Auto 0.4 % (0-2); Eosinophils Absolute Auto 0 /uL (0-450); Hematocrit 46.1 % (41-53); Hemoglobin 15.3 g/dL (13.5-17.5); Lymphocytes Absolute Auto 700 /uL (1100-4500); Lymphocytes Percent Auto 9.1 % (25-40); Mean Corpuscular HGB Conc 33.1 % (30-36); Mean Corpuscular Volume 93.4 fL (80-100); Monocytes Absolute Auto 500 /uL (0-900); Monocytes Percent Auto 5.9 % (3-14); Neutrophils Absolute Auto 6600 /uL (1500-7000); Neutrophils Percent Auto 84.6 % (50-75); Platelet Count 373 X10^3/uL (150-400); Red Blood Cell Count 4.93 X10^6/uL (4.5-5.9); Red Cell Distribution Width 14.1 % (11.6-14.8); White Blood Cell Count 7.8 X10^3/uL (4.5-11.0)
[2020-09-07 04:51] LABS: BUN Creatinine Ratio 22.7 (6-22); Blood Urea Nitrogen 17 mg/dL (9-20); Calcium 9.5 mg/dL (8.4-10.2); Carbon Dioxide 29 mmol/L (22-32); Chloride 102 mmol/L (98-107); Estimated Glomerular Filt Rate > 60.0 mL/min (>60); Glucose 146 mg/dL (80-110); HEMOLYSIS < 15 (0-50); Potassium 4.3 mmol/L (3.4-5.1); Sodium 135 mmol/L (137-145)
[2020-09-07] MEDS: SODIUM CHLORIDE 0.9% FLUSH 10 ML IV (08:38)
[2020-09-07] MEDS: ENOXAPARIN 40 MG/0.4 ML SYRINGE SUBCUT (08:38)
[2020-09-07] MEDS: ALBUTEROL/IPRATROPIUM 3 ML AMPUL INH ×2 (09:12→12:36)
--- NOTE | 2020-09-07 10:18 | CM.DANOTE ---
DCP: Case received, EMR reviewed and met with patient. Introduced self and role. Was able to obtain information from patient regarding his baseline activity status and current living situation prior to his hospitalization. DCP assessment completed with information currently available. Patient is a 70 year old male who admitted yesterday afternoon to the care of the hospitalist team. PCP: Dr. Potter. Payer: confirmed: [facility] MCR/Medicaid. Patient came to the hospital via private vehicle, he was sent over from his primary care provider's office, at [facility]. Patient was having some shortness of breath, his oxygen saturations were initially in the 70s and 80s. He was sent over on 2 liters of oxygen. Patient was diagnosed with hypoxemia secondary to pneumonia. Patient has history of COPD, uses inhalers at home, no home oxygen. He also drinks a 6 pack of beer a day, which stated in notes, he does not intend to stop doing. Met with patient in his room. He was sitting up in bed, alert and oriented. He resides on [address], here in [place], and lives alone. He uses a walking stick if needed, but no other DME supplies, and he drives. He does not have any family in the area, his friend, Tico Kat, is listed on his contacts. P:DCP to continue to follow for any needs. Patient may possibly go home today, as discussed in team rounds, if he keeps up his oxygen saturations while ambulating. Janet Hetah RN/Whitewasher
--- NOTE | 2020-09-07 10:59 | PM.DS.1 ---
History of Present Illness History of Present Illness Date Patient Seen: 09/07/20 Time Patient Seen: 10:00 Chief complaint: LOW OXYGEN Narrative: Mr. Rivera is a 70M who is a daily smoker, EtOH abuse, COPD who comes in from his PCP for O2 sats in the 70s-80s. He states he has been short of breath for a few weeks, he has been having a cough that is productive of mild amounts of sputum. He has no fevers/chills. He has right sided chest pain. He gets short of breath with minimal exertion. He is not on oxygen at home. He does have 2 inhalers at home, one he uses twice a day, another is a rescue which he has not been using. He has lost 10lbs in the last few weeks. He has right sided chest pain that is tender to touch. In the ED, workup was done he was noted to be tachycardic in the 100s-110s and sats in the 80s on room air. He was placed on oxygen. He received methylpred, and nebulizers, and azithromycin. When I saw him after this he was trialed off oxygen and he dropped to 84-85% on room air while talking. Labs notable for WBC of 11.5, hgb 16.4, d-dimer 1024. ABG showed pCO2 of 45, paO2 of 57. Creatinine 0.57. Trop ok. Lactate ok. Procalcitonin 0.03. COVID negative, respiratory panel negative. Chest xray shows possible early pneumonia at left lung base, hyperexpanded lungs. CTA shows no PE, bronchial wall thickening. Left upper lobe 7mm spiculated nodule, bibasilar atelectasis. He was admitted for further treatment. Family history: Mother with diabetes Discharge Providers Provider Date of admission: 09/06/20 15:15 Discharge Date: 09/07/20 Primary care physician: Jean Claude Potter DO Consults: 09/06/20 12:23 Consult to Respiratory Therapy Evaluate & Treat Comment: Physician Instructions: Evaluate and treat 09/06/20 18:57 Consult to Dietitian, Adult Routine Comment: Reason For Exam: bmi 18.6, weight loss Discharge provider: Tyrone Rocha DO Summary Hospital Course Discharge Diagnosis: 1. Acute COPD exacerbation, with acute respiratory failure, with hypoxemia, improved. Acute hypoxic respiratory failure resolved. 2. Left upper lobe spiculate nodule 3. EtOH abuse 4. chronic moderate Protein calorie malnutrition Hospital Course: Mr. Rivera is a 70M with PMH of COPD who presented with hypoxemia secondary to acute COPD exacerbation. He improved much more quickly than expected after initiation of steroids and nebulizer therapies. The following morning he was no longer requiring supplemental oxygen and was able to ambulate throughout the halls without oxygen desaturation. He does have a strong history of alcohol abuse but showed no evidence of withdrawal. Due to his chronic COPD, recent unintentional weight loss, and his BMI of 18.6 as well as some evidence of muscle loss with chronically ill appearance on exam he does meet criteria for moderate malnutrition which increases his risk of infection and may also be due to the left upper lobe spiculated nodule which was seen on CT imaging. This will require close follow-up with his primary care provider with either a PET scan or interval CT chest, could also consider referral given spiculated appearance for thoracic surgery. He was discharged the day after admission to continue outpatient prednisone and Azithromycin for anti-inflammatory effect. Exam Vital Signs (past 8 hours): - 09/07/20 04:00 09/07/20 08:00 09/07/20 09:12 Temperature 97.0 F L 97.6 F Pulse Rate 84 81 93 H Respiratory Rate 16 18 16 Blood Pressure 90/67 135/71 Pulse Oximetry 93 93 92 Oxygen Delivery Method Room Air Oxygen Flow Rate 0 Narrative Exam Narrative: GEN: no acute distress chronically ill appearing HEENT: PERRL, moist mucous membranes, flushed face NECK: no JVD, trachea midline CV: RRR, no murmurs PULM: no wheezes, rhonchi or rales. ABD: thin, soft, nontender, nondistended, no organomegaly, normal bowel sounds EXT: warm and well perfused with no edema NEURO: AAOx3, moving all extremities SKIN: no rashes noted, no lesions noted PSYCH: pleasant, calm with stable behavior Objective Labs Result Diagrams: 09/07/20 04:30 09/07/20 04:30 Labs: Laboratory Results - last 24 hr 09/06/20 09/06/20 09/06/20 12:32 12:32 12:32 WBC 11.5 H RBC 5.28 Hgb 16.4 Hct 49.3 MCV 93.3 MCH 31.0 MCHC 33.2 RDW 13.9 Plt Count 411 H Neut % (Auto) 68.3 Lymph % (Auto) 16.7 L [place] % (Auto) 10.9 Eos % (Auto) 2.9 Baso % (Auto) 1.2 Neut # (Auto) 7900 H Lymph # (Auto) 1900 [place] # (Auto) 1300 H Eos # (Auto) 300 Baso # (Auto) 100 D-Dimer 1024 H ABG pH ABG pCO2 ABG pO2 ABG HCO3 ABG Total CO2 ABG O2 Saturation ABG Base Excess FiO2 Sodium 133 L Potassium 4.1 Chloride 97 L Carbon Dioxide 29 BUN 4 L Creatinine 0.57 L Estimated GFR > 60.0 BUN/Creatinine Ratio 7.0 Glucose 83 Lactate Calcium 9.4 Magnesium 1.9 Total Bilirubin 0.6 AST 34 ALT 12 Alkaline Phosphatase 77 Total Creatine Kinase 47 L CK-MB (CK-2) TNP CK-MB (CK-2) Rel Index TNP Troponin I < 0.012 NT-Pro-B Natriuret Pep Total Protein 7.9 Albumin 4.2 Globulin 3.7 Albumin/Globulin Ratio 1.1 Procalcitonin 0.03 Chlamy pneumoniae PCR Adenovirus (PCR) B. pertussis DNA (PCR) B.parapertussis DNA PCR Coronavirus OC43 (PCR) Coronavirus HKU1 (PCR) Coronavirus 229E (PCR) SARS-CoV-2 (PCR) Coronavirus NL63 (PCR) Human Metapneumovir PCR Influenza Type A (PCR) Influenza Type B (PCR) M. pneumoniae (PCR) Parainfluenza 1 (PCR) Parainfluenza 2 (PCR) Parainfluenza 3 (PCR) Parainfluenza 4 (PCR) RSV (PCR) Entero/Rhino (PCR) 09/06/20 09/06/20 09/06/20 12:32 12:32 12:50 WBC RBC Hgb Hct MCV MCH MCHC RDW Plt Count Neut % (Auto) Lymph % (Auto) [place] % (Auto) Eos % (Auto) Baso % (Auto) Neut # (Auto) Lymph # (Auto) [place] # (Auto) Eos # (Auto) Baso # (Auto) D-Dimer ABG pH 7.39 ABG pCO2 45.3 H ABG pO2 57 L ABG HCO3 27 H ABG Total CO2 29 ABG O2 Saturation 89 L ABG Base Excess 2.0 FiO2 0.21 Sodium Potassium Chloride Carbon Dioxide BUN Creatinine Estimated GFR BUN/Creatinine Ratio Glucose Lactate 1.4 Calcium Magnesium Total Bilirubin AST ALT Alkaline Phosphatase Total Creatine Kinase CK-MB (CK-2) CK-MB (CK-2) Rel Index Troponin I NT-Pro-B Natriuret Pep 174 H Total Protein Albumin Globulin Albumin/Globulin Ratio Procalcitonin Chlamy pneumoniae PCR Adenovirus (PCR) B. pertussis DNA (PCR) B.parapertussis DNA PCR Coronavirus OC43 (PCR) Coronavirus HKU1 (PCR) Coronavirus 229E (PCR) SARS-CoV-2 (PCR) Coronavirus NL63 (PCR) Human Metapneumovir PCR Influenza Type A (PCR) Influenza Type B (PCR) M. pneumoniae (PCR) Parainfluenza 1 (PCR) Parainfluenza 2 (PCR) Parainfluenza 3 (PCR) Parainfluenza 4 (PCR) RSV (PCR) Entero/Rhino (PCR) 09/06/20 09/06/20 09/07/20 12:52 12:56 04:30 WBC 7.8 RBC 4.93 Hgb 15.3 Hct 46.1 MCV 93.4 MCH 31.0 MCHC 33.1 RDW 14.1 Plt Count 373 Neut % (Auto) 84.6 H Lymph % (Auto) 9.1 L [place] % (Auto) 5.9 Eos % (Auto) 0.0 L Baso % (Auto) 0.4 Neut # (Auto) 6600 Lymph # (Auto) 700 L [place] # (Auto) 500 Eos # (Auto) 0 Baso # (Auto) 0 D-Dimer ABG pH ABG pCO2 ABG pO2 ABG HCO3 ABG Total CO2 ABG O2 Saturation ABG Base Excess FiO2 Sodium Potassium Chloride Carbon Dioxide BUN Creatinine Estimated GFR BUN/Creatinine Ratio Glucose Lactate Calcium Magnesium Total Bilirubin AST ALT Alkaline Phosphatase Total Creatine Kinase CK-MB (CK-2) CK-MB (CK-2) Rel Index Troponin I NT-Pro-B Natriuret Pep Total Protein Albumin Globulin Albumin/Globulin Ratio Procalcitonin Chlamy pneumoniae PCR Not detected Adenovirus (PCR) Not detected B. pertussis DNA (PCR) Not detected B.parapertussis DNA PCR Not detected Coronavirus OC43 (PCR) Not detected Coronavirus HKU1 (PCR) Not detected Coronavirus 229E (PCR) Not detected SARS-CoV-2 (PCR) Negative Not detected Coronavirus NL63 (PCR) Not detected Human Metapneumovir PCR Not detected Influenza Type A (PCR) Not detected Influenza Type B (PCR) Not detected M. pneumoniae (PCR) Not detected Parainfluenza 1 (PCR) Not detected Parainfluenza 2 (PCR) Not detected Parainfluenza 3 (PCR) Not detected Parainfluenza 4 (PCR) Not detected RSV (PCR) Not detected Entero/Rhino (PCR) Not detected 09/07/20 04:30 WBC RBC Hgb Hct MCV MCH MCHC RDW Plt Count Neut % (Auto) Lymph % (Auto) [place] % (Auto) Eos % (Auto) Baso % (Auto) Neut # (Auto) Lymph # (Auto) [place] # (Auto) Eos # (Auto) Baso # (Auto) D-Dimer ABG pH ABG pCO2 ABG pO2 ABG HCO3 ABG Total CO2 ABG O2 Saturation ABG Base Excess FiO2 Sodium 135 L Potassium 4.3 Chloride 102 Carbon Dioxide 29 BUN 17 Creatinine 0.75 Estimated GFR > 60.0 BUN/Creatinine Ratio 22.7 H Glucose 146 H Lactate Calcium 9.5 Magnesium Total Bilirubin AST ALT Alkaline Phosphatase Total Creatine Kinase CK-MB (CK-2) CK-MB (CK-2) Rel Index Troponin I NT-Pro-B Natriuret Pep Total Protein Albumin Globulin Albumin/Globulin Ratio Procalcitonin Chlamy pneumoniae PCR Adenovirus (PCR) B. pertussis DNA (PCR) B.parapertussis DNA PCR Coronavirus OC43 (PCR) Coronavirus HKU1 (PCR) Coronavirus 229E (PCR) SARS-CoV-2 (PCR) Coronavirus NL63 (PCR) Human Metapneumovir PCR Influenza Type A (PCR) Influenza Type B (PCR) M. pneumoniae (PCR) Parainfluenza 1 (PCR) Parainfluenza 2 (PCR) Parainfluenza 3 (PCR) Parainfluenza 4 (PCR) RSV (PCR) Entero/Rhino (PCR) FOR[facility]LY [facility], [facility] Medical History Acute bronchitis Atypical ductal hyperplasia of right breast Chronic cough (2017) Fractures (Unknown) Partial blindness (Unknown) Schizophrenia (Unknown) Substance abuse (Unknown) Surgical History History of open reduction and internal fixation (ORIF) procedure (Unknown) Social History household members: none Smoking Status: Current every day smoker Tobacco: How many years used: 45 quit status: considering quitting second hand exposure: Yes alcohol intake: current substance use type: does not use Discharge Plan Discharge Plan Patient Disposition: Home Provider Discharge Comment: You were admitted to the hospital with a COPD exacerbation. You improved with steroids and an anitbiotic used to help with inflammation. You did not require oxygen with ambulation. COPD will only continue to get worse with smoking. Typical course for COPD for steroids and antibiotics is 5 total days, the remainder of this course was sent to your pharmacy. Please follow up with a PCP in the next 1-2 weeks. You were also noted to have a lung nodule on imaging which needs to be further evaluated with your primary care provider. Discharge orders & Medications Prescriptions: New azithromycin 250 mg tablet 250 mg PO DAILY 4 Days Qty: 4 RF: 0 prednisone 20 mg tablet 40 mg PO DAILY 4 Days Qty: 8 RF: 0 Continued albuterol sulfate [ProAir HFA] 90 mcg/actuation HFA aerosol inhaler 2 puff INHALATION QID PRN (Reason: shortness of breath or wheezing) RF: 0 Combivent Respimat 20-100 mcg/actuation mist 1 puff inhalation Q4H Qty: 4 RF: 1 Follow up/Referrals: Jean Claude Potter DO [Primary Care Provider] - Diet/Activity/Treatments Diet: Diet as Tolerated Activity: As tolerated Discharge Data Primary Care Provider: Jean Claude Potter Attending Provider: David Coffman
== END 2020-09-07 13:16 | disposition home or self-care (01) ==
LOC: ED 14:27 → AC 15:26
PROVIDERS: Admitting Provider Internal Medicine; Emergency Provider Emergency Medicine; PCP Family Medicine; Referring Provider Emergency Medicine; Visit Provider Internal Medicine
DX: J44.1 Chronic obstructive pulmonary disease with (acute) exacerbation (principal); J96.01 Acute respiratory failure with hypoxia; E46 Unspecified protein-calorie malnutrition; Z68.1 Body mass index [BMI] 19.9 or less, adult; F10.10 Alcohol abuse, uncomplicated; F17.210 Nicotine dependence, cigarettes, uncomplicated; Z20.822 Contact with and (suspected) exposure to COVID-19; R91.1 Solitary pulmonary nodule
CPT/HCPCS: 36415; 36600; 71045; 71275; 80048; 80053; 81003; 82550; 82805; 83605; 83735; 83880; 84145; 84484; 85025; 85379; 87040; 87633; 87635; 93005; 94618; 94640; 94760; 94762; 96365; 96366; 96367; 96372; 96375; 99285; 99406; C9803; G0378; J1650; J1956; J2930

== ENCOUNTER → 2020-10-04 09:35 | Outpatient (CLI) | payer MEDICARE, MEDICAID, SELFPAY ==
[2020-10-04 09:17] VITALS: BMI 19.5
--- NOTE | 2020-10-04 09:36 | DI.US.S_ITS ---
LIMITED ULTRASOUND OF RIGHT BREAST: 10/04/2020 CLINICAL: Palpable right breast lump. No prior exams were available for comparison. Color flow and real-time ultrasound of the right breast retroareolar were performed. Wiley scale images of the real-time examination were reviewed. There is ill defined, hypoechoic tissue, likely representing fibroglandular tissue in the right breast that correlates with palpable abnormality. Color Doppler imaging demonstrates this tissue to be vascular. IMPRESSION: INCOMPLETE: NEEDS ADDITIONAL IMAGING EVALUATION Vascular ill defined tissue in the retroareolar region correlating to the palpable abnormality is likely gynecomasstia, but without mammography, remains indeterminate. Diagnostic mammogram is recommended and will be scheduled as soon as possible. Findings and recommendations were conveyed to the patient at time of exam. This exam was interpreted at Station ID: [id number]. Electronically Signed By: Shanika wheeler/:10/04/2020 10:37:41 letter sent: Additional Imaging Needed Ultrasound BI-RADS: 0 Indeterminate
== END ==
PROVIDERS: PCP Family Medicine; Referring Provider Family Medicine; Visit Provider Family Medicine
DX: N60.91 Unspecified benign mammary dysplasia of right breast (principal); N63.10 Unspecified lump in the right breast, unspecified quadrant; Z68.1 Body mass index [BMI] 19.9 or less, adult
CPT/HCPCS: 76642; 99214

== ENCOUNTER → 2020-10-25 11:48 | Outpatient (CLI) | payer MEDICARE, MEDICAID, SELFPAY ==
[2020-10-04 09:17] VITALS: BMI 19.5
--- NOTE | 2020-10-25 11:51 | DI.MG.S_ITS ---
MALE BILATERAL DIGITAL DIAGNOSTIC MAMMOGRAM 3D/2D: 10/25/2020 CLINICAL: Baseline mammogram. Right breast lump. No prior exams were available for comparison. There is an irregular equal density global asymmetry with indistinct margins in the right breast central to the nipple in the retroareolar region. This correlates as palpated. Findings are consistent with gynecomastia. No other significant masses, calcifications, or other findings are seen in either breast. IMPRESSION: BENIGN There is no mammographic evidence of malignancy. Right retroareolar asymmetry consistent with gynecomastia. Recommend clinical followup to determine possible etiologies. This exam was interpreted at Station ID: [id number]. NOTE: For mammograms, a report in lay terms will be sent to the patient. Approximately 15% of breast malignancies will not be visualized mammographically. In the management of a palpable breast mass, a negative mammogram must not discourage biopsy of a clinically suspicious lesion. Electronically Signed By: Diego Lazo M.D. ddp/:10/25/2020 13:19:54 letter sent: Clinical Evaluation ACR BI-RADS Category 2: Benign Finding(s) [id number]
== END ==
PROVIDERS: PCP Family Medicine; Referring Provider Surgery; Visit Provider Surgery
DX: N63.15 Unspecified lump in the right breast, overlapping quadrants
CPT/HCPCS: 77066; G0279

== ENCOUNTER 2021-04-17 14:01 | Inpatient (IN) | payer MEDICARE, MEDICAID, SELFPAY ==
[2020-10-04 09:17] VITALS: BMI 19.5
[2021-04-17] VITALS (31 sets, daily range): BP systolic 97–155; BP diastolic 58–80; PULSE 91–119; RESP 16–36; TEMP 36.8; O2SAT 73–100; BMI 20.3
[2021-04-17] MEDS: ALBUTEROL/IPRATROPIUM 3 ML AMPUL INH (14:22)
[2021-04-17] MEDS: ALBUTEROL 2.5 MG/3 ML NEB (ADULT) 12.5 MG INH (14:22)
--- NOTE | 2021-04-17 14:23 | ED.SOB ---
HPI - SOB/Dyspnea General Chief Complaint: Shortness of Breath/Dyspnea Stated Complaint: blood oxygen level down cant breath Time Seen by Provider: 04/17/21 14:15 Source: patient Mode of arrival: Ambulatory Limitations: no limitations History of Present Illness HPI Narrative: This is a 70-year-old male comes in with dyspnea. Patient states she has Valium a little bit short of breath the last 2 or 3 days but today became very short of breath. Has a known history of COPD uses albuterol and Combivent. He did have a spiculated lung nodule on CT a in August of 2020 does not appear he is followed this up. States he does not take any daily medications otherwise. And continues to smoke a half pack daily who drink 9 at time beers nightly, occasional marijuana but no other illicit. Patient states he has been told he may have had a heart attack once before but was told he had not had a heart attack. He has never had a cardiac catheterization. He has not any fevers or chills. No nasal congestion. He him short of breath early this morning. He did albuterol treatment about 3:00 a.m. but has not had not had any additional. He has had a cough which has been nonproductive. It is a little bit back tender pulp drier lately. He denies any chest pain or pressure. He does feel quite short of breath. He feels that he does have increased work of breathing. He denies any new swelling in his extremities. No abdominal, back or flank pain. He denies allergies to medications. Patient states he had to draw on his right lower extremity remotely and injury, he has had hernia repair. Related Data Previous Rx's Medication Instructions Recorded ipratropium 20 mcg-albuterol 100 1 puff INHALATION Q4H #4 g 12/11/20 mcg/actuation mist for inhalation (Combivent Respimat) albuterol sulfate 90 mcg/actuation 2 puff INHALATION QID PRN #8.5 g 12/12/20 aerosol inhaler (ProAir HFA) Allergies Allergy/AdvReac Type Severity Reaction Status Date / Time No Known Drug Allergies Allergy Verified 10/18/20 10:25 Review of Systems Review of Systems ROS Unobtainable: All systems reviewed & are unremarkable except as noted in HPI and below Patient History Medical History Acute bronchitis Atypical ductal hyperplasia of right breast Chronic cough (2017) Fractures (Unknown) Incidental lung nodule, > 3mm and < 8mm Partial blindness (Unknown) Schizophrenia (Unknown) Substance abuse (Unknown) Surgical History History of open reduction and internal fixation (ORIF) procedure (Unknown) Social History household members: none Smoking Status: Current every day smoker Tobacco: How many years used: 45 quit status: considering quitting second hand exposure: Yes alcohol intake: current substance use type: does not use Smoking Status: Current every day smoker alcohol intake frequency: 3 or more drinks per day Alcohol type: beer Substance Use Type: marijuana Exam Narrative Exam Narrative: GENERAL: Alert and oriented x three, thin elderly male in moderate distress. HEENT: Head normocephalic, atraumatic, EOMI, pupils reactive, face symmetric, moist mucous membranes NECK: Supple, full range of motion CARDIOVASCULAR: Regular rate and rhythm without murmurs, rubs or gallops. No swelling bilateral lower extremities. RESPIRATORY: Breath sounds decreased bilaterally, mild inspiratory wheeze, no extra Jordon wheeze appreciated, no rales or rhonchi noted. Positive for tachypnea. Speaks in 3-4 word sentences. ABDOMEN: Soft, nontender. Normoactive bowel sounds all 4 quadrants. No guarding or rebound, rigidity, no mass : No CVA tenderness EXTREMITIES: Normal range of motion. Neurovascularly intact NEUROLOGICAL: Cranial nerves II through XII grossly intact. Moving all extremities SKIN: Warm, dry, no petechiae, no rashes or lesions. 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) Stat Respiratory Panel (Film Array) Stat Measure peak expiratory flow ONCE RT Consult Eval and Treat Now 04/17/21 14:15 Complete Blood Count AUTO DIFF Stat Comprehensive Metabolic Panel Stat Lactate (Lactic Acid) Stat NT-proBNP (BNP-Adult 18+) Stat Prothrombin Time INR Stat Troponin & CK Cardiac Panel Stat 04/17/21 14:29 Chest [XR chest 1V] Stat 04/17/21 15:11 EKG-12 Lead Stat 04/17/21 15:47 CT angio chest PE protocol Stat 04/17/21 18:35 ABG [Arterial Blood Gas] Stat Discontinued Medications Albuterol (Albuterol 2.5 Mg/3 Ml Neb (Adult)) 12.5 mg INH NOW ONE Stop: 04/17/21 14:20 Last Admin: 04/17/21 14:22 Dose: 12.5 mg Documented by: GINNY Albuterol (Albuterol 2.5 Mg/3 Ml Neb (Adult)) 2.5 mg INH NOW ONE Stop: 04/17/21 18:04 Last Admin: 04/17/21 18:13 Dose: 2.5 mg Documented by: JUAN Albuterol/Ipratropium (Albuterol/Ipratropium 3 Ml Ampul) 3 ml INH NOW ONE Stop: 04/17/21 14:20 Last Admin: 04/17/21 14:22 Dose: 3 ml Documented by: GINNY Methylprednisolone (Methylprednisolone 125 Mg/2 Ml Vial) 125 mg IV NOW ONE Stop: 04/17/21 14:25 Last Admin: 04/17/21 14:57 Dose: 125 mg Documented by: ELHAM Reevaluation(s) Reevaluation #1: Feeling better with continous neg and duoneb. Time: 15:00 Reevaluation #2: Patient on recheck has mild improvement on aeration. Patient work of breathing has improved. Discussed findings with patient. He has a known spiculated lung nodule last seen in August of 2020 patient's sudden onset does have some concern for PE although seems much more likely a COPD exacerbation. Patient is open to CT angiography. Time: 15:48 Consultations Consultation #1: Dr. Coffman, accepts for observation. Suspect COPD exacerbation. Patient had continuous neb, Solu-Medrol with minimal improvement when we trying to wean him off O2 drops to 83%. Patient states his norm is 88-92%. CT angiography was negative for PE, does show some interstitial changes. He has a spiculated mass. 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 ABG shows a compensated respiratory acidosis PaO2 is 62. Plan to obtain respiratory panel. Vital Signs Vital signs: Vital Signs - 8 hr 01/18/22 14:14 04/17/21 14:25 04/17/21 14:30 Pulse Rate 119 H 112 H 113 H Respiratory Rate 36 H 28 H 19 Blood Pressure 119/76 Pulse Oximetry 73 L 95 95 04/17/21 14:40 04/17/21 14:50 04/17/21 15:00 Pulse Rate 104 H 105 H 110 H Respiratory Rate 22 25 H 26 H Blood Pressure 125/74 122/68 118/68 Pulse Oximetry 95 95 96 04/17/21 15:10 04/17/21 15:20 04/17/21 15:30 Pulse Rate 112 H 113 H 112 H Respiratory Rate 21 21 23 Blood Pressure 116/71 123/70 123/63 Pulse Oximetry 94 94 95 04/17/21 15:40 04/17/21 15:50 04/17/21 16:00 Pulse Rate 113 H 110 H 107 H Respiratory Rate 28 H 22 28 H Blood Pressure 120/68 112/62 128/80 Pulse Oximetry 91 100 95 04/17/21 16:19 04/17/21 16:20 04/17/21 16:23 Pulse Rate 110 H 109 H 111 H Respiratory Rate 28 H 20 27 H Blood Pressure 118/74 Pulse Oximetry 97 98 95 04/17/21 16:30 04/17/21 16:40 04/17/21 16:50 Pulse Rate 108 H 106 H 103 H Respiratory Rate 29 H 27 H 26 H Blood Pressure 115/65 118/67 119/65 Pulse Oximetry 93 91 94 04/17/21 17:00 04/17/21 17:10 04/17/21 17:20 Pulse Rate 103 H 98 H 97 H Respiratory Rate 34 H 22 25 H Blood Pressure 115/66 135/64 128/60 Pulse Oximetry 96 96 95 04/17/21 17:30 04/17/21 17:40 04/17/21 17:50 Pulse Rate 97 H 97 H 100 H Respiratory Rate 23 23 24 Blood Pressure 118/58 L 111/58 L 119/60 Pulse Oximetry 94 94 88 L 04/17/21 18:00 04/17/21 18:10 04/17/21 18:20 Pulse Rate 96 H 102 H 96 H Respiratory Rate 18 25 H 27 H Blood Pressure 128/60 155/70 H 130/63 Pulse Oximetry 91 89 L 91 MDM - SOB/Dyspnea Lab Data Result diagrams: 04/17/21 14:15 04/17/21 14:15 Labs: Lab Results 04/17/21 04/17/21 04/17/21 Range/Units 14:13 14:15 14:15 WBC 9.2 (4.5-11.0) X10^3/uL RBC 5.36 (4.5-5.9) X10^6/uL Hgb 17.1 (13.5-17.5) g/dL Hct 50.3 (41-53) % MCV 93.9 (80-100) fL MCH 31.8 (26-34) PG MCHC 33.9 (30-36) % RDW 13.7 (11.6-14.8) % Plt Count 438 H (150-400) X10^3/uL Neut % (Auto) 59.2 (50-75) % Lymph % (Auto) 23.3 L (25-40) % [place] % (Auto) 13.4 (3-14) % Eos % (Auto) 3.6 (2-4) % Baso % (Auto) 0.5 (0-2) % Neut # (Auto) 5400 (2954-7025) /uL Lymph # (Auto) 2100 (9838-3895) /uL [place] # (Auto) 1200 H (0-900) /uL Eos # (Auto) 300 (0-450) /uL Baso # (Auto) 0 (0-100) /uL PT 12.2 (10.1-12.7) SECONDS INR 1.1 (0.9-1.3) Sodium (137-145) mmol/L Potassium (3.4-5.1) mmol/L Chloride (98-107) mmol/L Carbon Dioxide (22-32) mmol/L BUN (9-20) mg/dL Creatinine (0.66-1.25) mg/dL Estimated GFR (>60) mL/min BUN/Creatinine Ratio (6-22) Glucose (80-110) mg/dL Lactate (0.7-2.1) mmol/L Calcium (8.4-10.2) mg/dL Total Bilirubin (0.2-1.3) mg/dL AST (17-59) IU/L ALT (<50) IU/L Alkaline Phosphatase (38-126) U/L Total Creatine Kinase (55-170) U/L CK-MB (CK-2) CK-MB (CK-2) Rel Index Troponin I (0.01-0.034) ng/mL NT-Pro-B Natriuret Pep (<125) pg/mL Total Protein (6.3-8.2) g/dL Albumin (3.5-5.0) g/dL Globulin (1.7-4.1) g/dL Albumin/Globulin Ratio (1.0-2.8) SARS-CoV-2 (PCR) Negative (Negative) 04/17/21 04/17/21 04/17/21 Range/Units 14:15 14:15 14:15 WBC (4.5-11.0) X10^3/uL RBC (4.5-5.9) X10^6/uL Hgb (13.5-17.5) g/dL Hct (41-53) % MCV (80-100) fL MCH (26-34) PG MCHC (30-36) % RDW (11.6-14.8) % Plt Count (150-400) X10^3/uL Neut % (Auto) (50-75) % Lymph % (Auto) (25-40) % [place] % (Auto) (3-14) % Eos % (Auto) (2-4) % Baso % (Auto) (0-2) % Neut # (Auto) (6121-7724) /uL Lymph # (Auto) (3823-6739) /uL [place] # (Auto) (0-900) /uL Eos # (Auto) (0-450) /uL Baso # (Auto) (0-100) /uL PT (10.1-12.7) SECONDS INR (0.9-1.3) Sodium 135 L (137-145) mmol/L Potassium 3.9 (3.4-5.1) mmol/L Chloride 93 L (98-107) mmol/L Carbon Dioxide 34 H (22-32) mmol/L BUN 6 L (9-20) mg/dL Creatinine 0.63 L (0.66-1.25) mg/dL Estimated GFR > 60.0 (>60) mL/min BUN/Creatinine Ratio 9.5 (6-22) Glucose 205 H (80-110) mg/dL Lactate 2.2 H (0.7-2.1) mmol/L Calcium 9.5 (8.4-10.2) mg/dL Total Bilirubin 0.5 (0.2-1.3) mg/dL AST 28 (17-59) IU/L ALT 13 (<50) IU/L Alkaline Phosphatase 82 (38-126) U/L Total Creatine Kinase 37 L (55-170) U/L CK-MB (CK-2) TNP CK-MB (CK-2) Rel Index TNP Troponin I < 0.012 (0.01-0.034) ng/mL NT-Pro-B Natriuret Pep 248 H (<125) pg/mL Total Protein 8.1 (6.3-8.2) g/dL Albumin 4.4 (3.5-5.0) g/dL Globulin 3.7 (1.7-4.1) g/dL Albumin/Globulin Ratio 1.2 (1.0-2.8) SARS-CoV-2 (PCR) (Negative) 04/17/21 Range/Units 16:45 WBC (4.5-11.0) X10^3/uL RBC (4.5-5.9) X10^6/uL Hgb (13.5-17.5) g/dL Hct (41-53) % MCV (80-100) fL MCH (26-34) PG MCHC (30-36) % RDW (11.6-14.8) % Plt Count (150-400) X10^3/uL Neut % (Auto) (50-75) % Lymph % (Auto) (25-40) % [place] % (Auto) (3-14) % Eos % (Auto) (2-4) % Baso % (Auto) (0-2) % Neut # (Auto) (6101-8649) /uL Lymph # (Auto) (0057-9093) /uL [place] # (Auto) (0-900) /uL Eos # (Auto) (0-450) /uL Baso # (Auto) (0-100) /uL PT (10.1-12.7) SECONDS INR (0.9-1.3) Sodium (137-145) mmol/L Potassium (3.4-5.1) mmol/L Chloride (98-107) mmol/L Carbon Dioxide (22-32) mmol/L BUN (9-20) mg/dL Creatinine (0.66-1.25) mg/dL Estimated GFR (>60) mL/min BUN/Creatinine Ratio (6-22) Glucose (80-110) mg/dL Lactate 2.1 (0.7-2.1) mmol/L Calcium (8.4-10.2) mg/dL Total Bilirubin (0.2-1.3) mg/dL AST (17-59) IU/L ALT (<50) IU/L Alkaline Phosphatase (38-126) U/L Total Creatine Kinase (55-170) U/L CK-MB (CK-2) CK-MB (CK-2) Rel Index Troponin I (0.01-0.034) ng/mL NT-Pro-B Natriuret Pep (<125) pg/mL Total Protein (6.3-8.2) g/dL Albumin (3.5-5.0) g/dL Globulin (1.7-4.1) g/dL Albumin/Globulin Ratio (1.0-2.8) SARS-CoV-2 (PCR) (Negative) Imaging Data Chest x-ray: Radiologist's Impression: Close Chest X-Ray (Signed) Josleuis Jimenez - 04/17/21 Mammogram Diagnostic (Signed) Diego Lazo - 10/25/20 Breast Ultrasound (Signed) Shanika Erwin - 10/04/20 Telemetry Strips 09/06/20 Chest CTA (Signed) Tereso Lopez - 09/06/20 Chest X-Ray (Signed) Neftali Jeff - 09/06/20 Chest X-Ray (Signed) Dina Reyna - 05/09/20 Chest X-Ray (Signed) Wili Herrera - 05/21/19 Chest X-Ray (Signed) Neftali Jeff - 09/05/17 Radiology - Historical 06/12/17 Launch?[address] [address] XRay Report Signed Patient: Fabiano Rivera MR#: [id number] : 1950 Acct:[id number] Age/Sex: 70 / M Date of Service: 04/17/21 Loc: ED Accession Number: [id number] ?? Procedure: XR chest 1V Ordering Provider: Caitlyn Sierra D.O. PROCEDURE:? XR CHEST 1V ? INDICATIONS:? Short of breath, copd ? TECHNIQUE:? One view of the chest was acquired.? ? COMPARISON:? [facility], , CHEST 2 VIEW, 04/25/2014, 12:22.? [facility], CR, XR CHEST 2V, 05/09/2020, 15:03.? [facility], CR, XR CHEST 1V, 09/06/2020, 12:27. ? FINDINGS:? ? Surgical changes and devices:? None.? ? Lungs and pleura:? Lungs are clear, yet mildly hyperexpanded.? No pleural effusions or pneumothorax.? ? Mediastinum:? The cardiac contours are within normal limits. The aorta demonstrates calcification and tortuosity. ? Bones and chest wall:? No suspicious bony lesions.? Age-appropriate bony degenerative changes are seen.? ? Overlying soft tissues appear unremarkable.? ? ? IMPRESSION:? No acute abnormality can be seen on this portable chest study. ? ? Dictated by: Joseluis Jimenez M.D. on 04/17/2021 at 14:21 ? ? Approved by: Joseluis Jimenez M.D. on 04/17/2021 at 14:22?? ECG Data Attestation: I personally reviewed and interpreted this ECG as follows: Prior ECG tracings: available for review Interpretation: Sinus tachycardia rate of 112, LA of 146 QRS 86 and QTC 469. Do not appreciate any acute ST elevation. Patient does have prior EKG from 09/06/2020 which appears similar although patient was not as tachycardic. MDM Narrative Medical decision making narrative: This is a 70-year-old male with a history of COPD on albuterol and Combivent does not take any additional medications he still smokes half pack daily and drinks alcohol regularly. Patient has exam consistent with COPD chest x-ray does not show clear changes, initial COVID is negative. Patient had a continuous neb with Solu-Medrol with some very mild improvement in work of breathing but continues to be hypoxic when trying to wean down his O2. Patient's CT angiography does not show PE he has a spiculated mass that was initially found 6 months ago with some interstitial changes that could possibly be sarcoid worse is infection versus other. Discussed with hospitalist who kindly accepts. Plan for respiratory panel, 2nd DuoNeb an ABG was obtained which shows a compensated respiratory acidosis. Discharge Plan Departure Patient Disposition: Admitted as Observation Clinical Impression: Acute exacerbation of chronic obstructive pulmonary disease Admit Date/Time: 04/17/21 18:22 Admit Provider: David Coffman
[2021-04-17 14:25] LABS: Add Manual Diff / Slide Review NO; Basophils Absolute Auto 0 /uL (0-100); Basophils Percent Auto 0.5 % (0-2); Eosinophils Absolute Auto 300 /uL (0-450); Eosinophils Percent Auto 3.6 % (2-4); Hematocrit 50.3 % (41-53); Hemoglobin 17.1 g/dL (13.5-17.5); Lymphocytes Absolute Auto 2100 /uL (1100-4500); Lymphocytes Percent Auto 23.3 % (25-40); Mean Corpuscular HGB Conc 33.9 % (30-36); Mean Corpuscular Hemoglobin 31.8 PG (26-34); Mean Corpuscular Volume 93.9 fL (80-100); Monocytes Absolute Auto 1200 /uL (0-900); Monocytes Percent Auto 13.4 % (3-14); Neutrophils Absolute Auto 5400 /uL (1500-7000); Neutrophils Percent Auto 59.2 % (50-75); Platelet Count 438 X10^3/uL (150-400); Red Blood Cell Count 5.36 X10^6/uL (4.5-5.9); Red Cell Distribution Width 13.7 % (11.6-14.8); White Blood Cell Count 9.2 X10^3/uL (4.5-11.0)
--- NOTE | 2021-04-17 14:29 | DI.RAD.S_ITS ---
PROCEDURE: XR CHEST 1V INDICATIONS: Short of breath, copd TECHNIQUE: One view of the chest was acquired. COMPARISON: [facility], , CHEST 2 VIEW, 04/25/2014, 12:22. [facility], CR, XR CHEST 2V, 05/09/2020, 15:03. [facility], CR, XR CHEST 1V, 09/06/2020, 12:27. FINDINGS: Surgical changes and devices: None. Lungs and pleura: Lungs are clear, yet mildly hyperexpanded. No pleural effusions or pneumothorax. Mediastinum: The cardiac contours are within normal limits. The aorta demonstrates calcification and tortuosity. Bones and chest wall: No suspicious bony lesions. Age-appropriate bony degenerative changes are seen. Overlying soft tissues appear unremarkable. IMPRESSION: No acute abnormality can be seen on this portable chest study. Dictated by: Joseluis Jimenez M.D. on 04/17/2021 at 14:21 Approved by: Joseluis Jimenez M.D. on 04/17/2021 at 14:22
[2021-04-17 14:34] LABS: INR 1.1 (0.9-1.3); Prothrombin Time 12.2 SECONDS (10.1-12.7)
[2021-04-17 14:41] LABS: Lactate (Lactic Acid) 2.2 mmol/L (0.7-2.1)
[2021-04-17 14:42] LABS: Alanine Aminotransferase 13 IU/L (<50); Albumin 4.4 g/dL (3.5-5.0); Albumin Globulin Ratio 1.2 (1.0-2.8); Alkaline Phosphatase 82 U/L (38-126); Aspartate Aminotransferase 28 IU/L (17-59); BUN Creatinine Ratio 9.5 (6-22); Bilirubin Total 0.5 mg/dL (0.2-1.3); Blood Urea Nitrogen 6 mg/dL (9-20); Calcium 9.5 mg/dL (8.4-10.2); Carbon Dioxide 34 mmol/L (22-32); Chloride 93 mmol/L (98-107); Creatine Kinase 37 U/L (55-170); Estimated Glomerular Filt Rate > 60.0 mL/min (>60); Globulin 3.7 g/dL (1.7-4.1); Glucose 205 mg/dL (80-110); HEMOLYSIS 28 (0-50); Potassium 3.9 mmol/L (3.4-5.1); Sodium 135 mmol/L (137-145); Total Protein 8.1 g/dL (6.3-8.2)
[2021-04-17 14:50] LABS: NT-proBNP (BNP-Adult 18+) 248 pg/mL (<125)
[2021-04-17 14:53] LABS: Troponin I < 0.012 ng/mL (0.01-0.034)
[2021-04-17] MEDS: methylPREDNISolone 125 MG/2 ML VIAL IV (14:57)
[2021-04-17 15:22] LABS: COVID19 - ADMIT (NP swab/PCR) Negative (Negative)
--- NOTE | 2021-04-17 15:47 | DI.CT.S_ITS ---
PROCEDURE: CT ANGIO CHEST PE PROTOCOL INDICATIONS: COPD, low O2, prior spiculated lung nodule TECHNIQUE: After the administration of intravenous contrast, 2 mm thick sections acquired from the pulmonary apices to the posterior costophrenic angles. 3-dimensional maximum intensity projection (MIP) coronal and sagittal reformats were then acquired through the thorax. For radiation dose reduction, the following was used: automated exposure control, adjustment of mA and/or kV according to patient size. COMPARISON: [facility], CT, CT ANGIO CHEST PE PROTOCOL, 09/06/2020, 13:46. FINDINGS: Image quality: Excellent. Pulmonary arteries: Pulmonary arteries are normal in size, and demonstrate no intraluminal filling defects to suggest central pulmonary embolism. Lungs and pleura: There is small amount of dependent mucus in the trachea. Peripheral airway joseph are diffusely thickened and the peripheral airways are mildly narrowed. There are biapical emphysematous changes and diffuse interstitial thickening. There is subpleural tree-in-bud nodularity and irregular septal thickening towards the lung bases. There are patchy alveolar opacities in both posterior costophrenic sulci, left more extensive than right which were present on the prior study. Spiculated nodule in the left upper lobe at a mid lung level measures 8 mm, 5/136. Subpleural spiculated nodule and rounded nodule or present posterolaterally in the superior segment right lower lobe, 5/144 and 148. No new consolidations or nodules. Calcification along the surface of the right diaphragm. No effusions. Mediastinum: AP window, precarinal, subcarinal, and bilateral hilar adenopathy is redemonstrated, similar extent compared to the prior study. One of the AP window lymph nodes measures 1.4 cm in short axis. Heart size is normal with moderate coronary artery calcification and without pericardial effusion. Thoracic aorta is normal in caliber and enhancement. Mild atherosclerotic calcification of the aortic arch. There is heavy calcification at the great vessel origins with possible near stenosis at the left subclavian artery origin. Esophagus is normal in caliber, without hiatal hernia. Bones and chest wall: No suspicious bony lesions. Degenerative disc disease present at T7-8. Ribs and thoracic spine appear intact throughout. Thyroid gland is unremarkable. No axillary or supraclavicular adenopathy. Abdomen: Visualized upper abdominal solid organs appear normal in the early arterial phase of enhancement. Heavy abdominal aortic calcification and branch artery calcification. IMPRESSION: 1. No acute pulmonary embolus. 2. No acute pulmonary parenchymal process. 3. Chronic findings of indolent infection, inflammation, or interstitial lung disease, consider sarcoid. 4. Spiculated pulmonary nodules for which follow-up chest CT in six months is recommended. Dictated by: Shanika Erwin M.D. on 04/17/2021 at 17:00 Approved by: Shanika Erwin M.D. on 04/17/2021 at 17:14
[2021-04-17 16:22] LABS: Reflexed Lactate in 2 Hours Y
[2021-04-17 17:12] LABS: Lactate 2HR (Lactic Acid Rflx) 2.1 mmol/L (0.7-2.1)
--- NOTE | 2021-04-17 17:30 | PC.NURSE ---
oxygen is decreased to 2l nc
--- NOTE | 2021-04-17 17:57 | PC.NURSE ---
turned oxygen to off. sats dropped down to 83 percent. md aware. oxygen increased to 2LNC
[2021-04-17] MEDS: ALBUTEROL 2.5 MG/3 ML NEB (ADULT) INH (18:13)
[2021-04-17 19:07] LABS: pH ABG 7.35 (7.35-7.45)
[2021-04-17 19:08] LABS: Fractionated Inspired Oxygen 28; HCO3 ABG 32 mmol/L (22-26); Oxygen Saturation ABG 89 % (95-100); PCO2 ABG 58.2 mmHg (35-45); PO2 ABG 62 mmHg (80-100); TCO2 ABG 34 mmol/L (21-31)
[2021-04-17 20:18] LABS: Adenovirus Not Detected (Not Detect); B. parapertussis Not Detected (Not Detecte); Bordetella pertussis Not Detected (Not Detecte); Chlamydophila pneumoniae Not Detected (Not Detect); Coronavirus 229E Not Detected (Not Detect); Coronavirus HKU1 Not Detected (Not Detect); Coronavirus NL 63 Not Detected (Not Detect); Coronavirus OC43 Not Detected (Not Detect); Human Metapneumovirus Not Detected (Not Detect); Human Rhinovirus/Enterovirus Not Detected (Not Detect); Influenza A Not Detected (Not Detect); Influenza B Not Detected (Not Detect); Mycoplasma pneumoniae Not Detected (Not Detect); Parainfluenza Virus 1 Not Detected (Not Detect); Parainfluenza Virus 2 Not Detected (Not Detect); Parainfluenza Virus 3 Not Detected (Not Detect); Parainfluenza Virus 4 Not Detected (Not Detect); Respiratory Syncytial Virus Not Detected (Not Detect); SARS- CoV-2 Not Detected (Not Detecte)
--- NOTE | 2021-04-17 20:19 | P.HP_ITS ---
History of Present Illness History of Present Illness Date Patient Seen: 04/17/21 Time Patient Seen: 20:20 Chief complaint: blood oxygen level down cant breath Narrative: Dolores Rivera S a 70-year-old male who presented to the emergency department with a complaint of inability to breathe, low blood pressure and dizziness for about 1 week. He denies fever chills sweats or chills, he is not vaccinated for COVID pneumonia and is not interested in being vaccinated. Denies chest pain, nausea vomiting, abdominal pain, dysuria, diarrhea or constipation. Patient attributes COPD after living in a RV and having mold in it. He currently lives in a ?tiny house? that he bill for himself on [facility]. In the emergency department he was sent for a CTA due to being hypoxemic at rest being in the 70s to 80s when normally he is in the mid 90s. Chest x-ray was normal, CTA did indicate what appeared to be spiculated nodules, did not comment on laterality. Apparently the lung masses have been present for some time but the patient has not followed up on this. Patient is afebrile, his blood pressure is 97/70, heart rate 85, respiratory rate 18, oxygen saturation 92% on 2 L, he weighs 60 kg with a BMI of 20.3. His white count is unremarkable, he does have elevated platelet count of 438, sodium 135, chloride 93, bicarb 34, BUN 6, creatinine 0.63, glucose 205, total creatinine kinase was 37, proBNP 248 largely within normal, COVID-19 rapid and PCR were both negative. Patient History Medical History Acute bronchitis Alcohol dependence Atypical ductal hyperplasia of right breast Chronic cough (2017) Depression Fractures (Unknown) Incidental lung nodule, > 3mm and < 8mm Partial blindness (Unknown) Schizophrenia (Unknown) Substance abuse (Unknown) Tobacco use Surgical History History of open reduction and internal fixation (ORIF) procedure (Unknown) Hx of hernia repair Family & Social History Social History: household members none Prior Living Arrangements House Safety & Behavioral: Feels Safe in Current Yes Environment Been Physically Hurt or No Threatened By a Person Suicidal Ideation Description None Suicide Plan Description No Plan Tobacco & Substance use: Tobacco type cigarettes Smoking Status Current every day smoker alcohol intake current alcohol intake frequency 3 or more drinks per day Substance Use Type marijuana Comment: Patient states he does not know his parents or their health issues and was raised by his grandmother. Meds Home Medications and Allergies Home Medications Medication Instructions Recorded Confirmed Type ipratropium 20 mcg-albuterol 100 1 puff INHALATION Q4H #4 g 12/11/20 04/17/21 Rx mcg/actuation mist for inhalation (Combivent Respimat) albuterol sulfate 90 mcg/actuation 2 puff INHALATION QID PRN #8.5 g 12/12/20 04/17/21 Rx aerosol inhaler (ProAir HFA) Allergies Allergy/AdvReac Type Severity Reaction Status Date / Time No Known Drug Allergies Allergy Verified 10/18/20 10:25 Review of Systems Review of Systems ROS: Yes All systems reviewed with the patient and are negative except as otherwise documented Exam Vital Signs (past 8 hours): - 04/17/21 14:14 04/17/21 14:25 04/17/21 14:30 Temperature Pulse Rate 119 H 112 H 113 H Respiratory Rate 36 H 28 H 19 Blood Pressure 119/76 Pulse Oximetry 73 L 95 95 04/17/21 14:40 04/17/21 14:50 04/17/21 15:00 Temperature Pulse Rate 104 H 105 H 110 H Respiratory Rate 22 25 H 26 H Blood Pressure 125/74 122/68 118/68 Pulse Oximetry 95 95 96 04/17/21 15:10 04/17/21 15:20 04/17/21 15:30 Temperature Pulse Rate 112 H 113 H 112 H Respiratory Rate 21 21 23 Blood Pressure 116/71 123/70 123/63 Pulse Oximetry 94 94 95 04/17/21 15:40 04/17/21 15:50 04/17/21 16:00 Temperature Pulse Rate 113 H 110 H 107 H Respiratory Rate 28 H 22 28 H Blood Pressure 120/68 112/62 128/80 Pulse Oximetry 91 100 95 04/17/21 16:19 04/17/21 16:20 04/17/21 16:23 Temperature Pulse Rate 110 H 109 H 111 H Respiratory Rate 28 H 20 27 H Blood Pressure 118/74 Pulse Oximetry 97 98 95 04/17/21 16:30 04/17/21 16:40 04/17/21 16:50 Temperature Pulse Rate 108 H 106 H 103 H Respiratory Rate 29 H 27 H 26 H Blood Pressure 115/65 118/67 119/65 Pulse Oximetry 93 91 94 04/17/21 17:00 04/17/21 17:10 04/17/21 17:20 Temperature Pulse Rate 103 H 98 H 97 H Respiratory Rate 34 H 22 25 H Blood Pressure 115/66 135/64 128/60 Pulse Oximetry 96 96 95 04/17/21 17:30 04/17/21 17:40 04/17/21 17:50 Temperature Pulse Rate 97 H 97 H 100 H Respiratory Rate 23 23 24 Blood Pressure 118/58 L 111/58 L 119/60 Pulse Oximetry 94 94 88 L 04/17/21 18:00 04/17/21 18:10 04/17/21 18:20 Temperature Pulse Rate 96 H 102 H 96 H Respiratory Rate 18 25 H 27 H Blood Pressure 128/60 155/70 H 130/63 Pulse Oximetry 91 89 L 91 04/17/21 18:30 04/17/21 18:35 04/17/21 20:04 Temperature 98.2 F Pulse Rate 95 H 97 H 98 H Respiratory Rate 24 24 16 Blood Pressure 119/62 97/70 Pulse Oximetry 91 89 L 91 Oxygen Delivery Method Nasal Cannula Oxygen Flow Rate 2 Narrative Exam Narrative: Gen: Alert, oriented, dishevelled and cachectic appearing 70 y.o. male, appears fatigued, HEENT: normocephalic, atraumatic, conjunctiva clear, sclera non-icteric, oral mucosa pink and moist Neck: supple, full ROM, no JVD, trachea is midline Resp: lung sounds constricted, mild sternal retractions CV: RRR, no murmur or rubs Chest: barrel chested Abd: soft, non-tender, normoactive BTs Skin: DNR/DNI tatooed to left side of his neck, nail spooning, dry and flaky Neuro: Alert and oriented X 4 w/no focal deficits. Speech clear and coherent. Extremities: moves all 4 extremities, is ambulatory, negative Man?s sign Psyche: normal mood and affect. Objective Labs Result Diagrams: 04/17/21 14:15 04/17/21 14:15 Labs: Laboratory Results - last 24 hr 04/17/21 04/17/21 04/17/21 14:13 14:13 14:15 WBC 9.2 RBC 5.36 Hgb 17.1 Hct 50.3 MCV 93.9 MCH 31.8 MCHC 33.9 RDW 13.7 Plt Count 438 H Neut % (Auto) 59.2 Lymph % (Auto) 23.3 L [place] % (Auto) 13.4 Eos % (Auto) 3.6 Baso % (Auto) 0.5 Neut # (Auto) 5400 Lymph # (Auto) 2100 [place] # (Auto) 1200 H Eos # (Auto) 300 Baso # (Auto) 0 PT INR ABG pH ABG pCO2 ABG pO2 ABG HCO3 ABG Total CO2 ABG O2 Saturation ABG Base Excess FiO2 Sodium Potassium Chloride Carbon Dioxide BUN Creatinine Estimated GFR BUN/Creatinine Ratio Glucose Lactate Calcium Total Bilirubin AST ALT Alkaline Phosphatase Total Creatine Kinase CK-MB (CK-2) CK-MB (CK-2) Rel Index Troponin I NT-Pro-B Natriuret Pep Total Protein Albumin Globulin Albumin/Globulin Ratio Chlamy pneumoniae PCR Not detected Adenovirus (PCR) Not detected B. pertussis DNA (PCR) Not detected B.parapertussis DNA PCR Not detected Coronavirus OC43 (PCR) Not detected Coronavirus HKU1 (PCR) Not detected Coronavirus 229E (PCR) Not detected SARS-CoV-2 (PCR) Negative Not detected Coronavirus NL63 (PCR) Not detected Human Metapneumovir PCR Not detected Influenza Type A (PCR) Not detected Influenza Type B (PCR) Not detected M. pneumoniae (PCR) Not detected Parainfluenza 1 (PCR) Not detected Parainfluenza 2 (PCR) Not detected Parainfluenza 3 (PCR) Not detected Parainfluenza 4 (PCR) Not detected RSV (PCR) Not detected Entero/Rhino (PCR) Not detected 04/17/21 04/17/21 04/17/21 14:15 14:15 14:15 WBC RBC Hgb Hct MCV MCH MCHC RDW Plt Count Neut % (Auto) Lymph % (Auto) [place] % (Auto) Eos % (Auto) Baso % (Auto) Neut # (Auto) Lymph # (Auto) [place] # (Auto) Eos # (Auto) Baso # (Auto) PT 12.2 INR 1.1 ABG pH ABG pCO2 ABG pO2 ABG HCO3 ABG Total CO2 ABG O2 Saturation ABG Base Excess FiO2 Sodium 135 L Potassium 3.9 Chloride 93 L Carbon Dioxide 34 H BUN 6 L Creatinine 0.63 L Estimated GFR > 60.0 BUN/Creatinine Ratio 9.5 Glucose 205 H Lactate 2.2 H Calcium 9.5 Total Bilirubin 0.5 AST 28 ALT 13 Alkaline Phosphatase 82 Total Creatine Kinase CK-MB (CK-2) CK-MB (CK-2) Rel Index Troponin I NT-Pro-B Natriuret Pep 248 H Total Protein 8.1 Albumin 4.4 Globulin 3.7 Albumin/Globulin Ratio 1.2 Chlamy pneumoniae PCR Adenovirus (PCR) B. pertussis DNA (PCR) B.parapertussis DNA PCR Coronavirus OC43 (PCR) Coronavirus HKU1 (PCR) Coronavirus 229E (PCR) SARS-CoV-2 (PCR) Coronavirus NL63 (PCR) Human Metapneumovir PCR Influenza Type A (PCR) Influenza Type B (PCR) M. pneumoniae (PCR) Parainfluenza 1 (PCR) Parainfluenza 2 (PCR) Parainfluenza 3 (PCR) Parainfluenza 4 (PCR) RSV (PCR) Entero/Rhino (PCR) 04/17/21 04/17/21 04/17/21 14:15 16:45 18:35 WBC RBC Hgb Hct MCV MCH MCHC RDW Plt Count Neut % (Auto) Lymph % (Auto) [place] % (Auto) Eos % (Auto) Baso % (Auto) Neut # (Auto) Lymph # (Auto) [place] # (Auto) Eos # (Auto) Baso # (Auto) PT INR ABG pH 7.35 ABG pCO2 58.2 H ABG pO2 62 L ABG HCO3 32 H ABG Total CO2 34 H ABG O2 Saturation 89 L ABG Base Excess 7.0 H FiO2 28 Sodium Potassium Chloride Carbon Dioxide BUN Creatinine Estimated GFR BUN/Creatinine Ratio Glucose Lactate 2.1 Calcium Total Bilirubin AST ALT Alkaline Phosphatase Total Creatine Kinase 37 L CK-MB (CK-2) TNP CK-MB (CK-2) Rel Index TNP Troponin I < 0.012 NT-Pro-B Natriuret Pep Total Protein Albumin Globulin Albumin/Globulin Ratio Chlamy pneumoniae PCR Adenovirus (PCR) B. pertussis DNA (PCR) B.parapertussis DNA PCR Coronavirus OC43 (PCR) Coronavirus HKU1 (PCR) Coronavirus 229E (PCR) SARS-CoV-2 (PCR) Coronavirus NL63 (PCR) Human Metapneumovir PCR Influenza Type A (PCR) Influenza Type B (PCR) M. pneumoniae (PCR) Parainfluenza 1 (PCR) Parainfluenza 2 (PCR) Parainfluenza 3 (PCR) Parainfluenza 4 (PCR) RSV (PCR) Entero/Rhino (PCR) Assessment & Plan Assessment and plan (1) Acute hypoxemic respiratory failure: Problem details: Oxygen saturation high 70s to mid 80s with activity, increased to mid to high 80s with oxygen. Status: Acute Plan: * Alternate nebulizers q 3 hours of albuteral and duoneb * Azithromycin 500 mg po daily * pulmicort nebs bid (2) Acute exacerbation of chronic obstructive pulmonary disease: Problem details: From longstanding tobacco use Status: Acute Plan: * See #1 (3) Alcohol dependence: Problem details: Patient states he experiences withdrawal for 24 hours, wakes up the next day and is resolved with his am coffee. Qualifiers: Substance use status: uncomplicated Qualified Code(s): F10.20 - Alcohol dependence, uncomplicated Status: Acute Plan: * CIWA protocol * Ativan prn. * PO Multivitamin, thiamine and folic acid (4) Tobacco use: Problem details: 1/2 ppd Status: Acute Plan: * Patient declines nicoderm patch (5) Incidental lung nodule, > 3mm and < 8mm: Problem details: Spiculated lung nodules Status: Acute Plan: Patient was referred to a specialist, but has not followed up. (6) Depression: Qualifiers: Depression Type: dysthymia Qualified Code(s): F34.1 - Dysthymic disorder Status: Chronic Plan: * Declines treatment for this, has been present for 22 years. Plan VTE Prophylaxis: Wells risk score Enoxaparin 40 mg subQ once daily Bilateral SCDs Patient is admitted to the inpatient service due to the severity of disease, risks of further disease progression and this stay is expected to exceed 2 midnights. FEN: IV fluids: saline lock, diet: general diet, labs: CBC, C/BMP, liver enzymes, Mag, PT/INR Consultants None Dispo: probable discharge to home Code status: DNR/DNI as discussed with the patient who would not identify a surrogate or POA. [X] I have utilized all available immediate resources to obtain, update, or review of the patient's current medications COVID-19 COVID-19 status: Negative Result date/Date tested (Pos, Neg/Pending): 04/17/21 Time Spent With Patient Critical Care time: I spent a total of [] minutes of critical care time on this patient's care today; this time is exclusive of procedural time. Scores Cooper' Criteria for PE Clinical signs and symptoms of DVT: Yes PE is #1 Dx or equally likely: Yes Heart rate > 100: No Immobilization at least 3 days or surg in previous 4 weeks: No History of PE or DVT: No Hemoptysis: No Malignancy w/Treatment within 6 months or palliative: Yes Wells' PE Score total: 7 Quality VTE Deep Vein Thrombosis/Pulmonary Embolism Present on Admission: No MIPS - Admit I confirm the patient?s Advance Care Plan is present, Code status is documented, Surrogate decision maker is in patient?s record [If Yes, STOP here]: Yes MIPS - DC The patient has current or prior documentation of left ventricular ejection fraction (LVEF) less than 40%, or moderate or severely depressed left ventricular systolic function.: No
[2021-04-17] MEDS: THIAMINE 100 MG TABLET PO (20:55)
[2021-04-18] VITALS (13 sets, daily range): BP systolic 95–132; BP diastolic 52–83; PULSE 68–95; RESP 14–20; TEMP 36.3–36.6; O2SAT 88–97
[2021-04-18 05:53] LABS: Fractionated Inspired Oxygen 28; HCO3 ABG 31 mmol/L (22-26); Oxygen Saturation ABG 95 % (95-100); PCO2 ABG 52.7 mmHg (35-45); PO2 ABG 80 mmHg (80-100); TCO2 ABG 32 mmol/L (21-31); pH ABG 7.38 (7.35-7.45)
[2021-04-18 07:00] LABS: Add Manual Diff / Slide Review NO; Basophils Absolute Auto 0 /uL (0-100); Basophils Percent Auto 0.2 % (0-2); Eosinophils Absolute Auto 0 /uL (0-450); Hematocrit 45.7 % (41-53); Hemoglobin 15.2 g/dL (13.5-17.5); Lymphocytes Absolute Auto 600 /uL (1100-4500); Lymphocytes Percent Auto 5.5 % (25-40); Mean Corpuscular HGB Conc 33.4 % (30-36); Mean Corpuscular Hemoglobin 31.2 PG (26-34); Mean Corpuscular Volume 93.7 fL (80-100); Monocytes Absolute Auto 700 /uL (0-900); Monocytes Percent Auto 6.3 % (3-14); Neutrophils Absolute Auto 9500 /uL (1500-7000); Platelet Count 379 X10^3/uL (150-400); Red Blood Cell Count 4.88 X10^6/uL (4.5-5.9); Red Cell Distribution Width 13.7 % (11.6-14.8); White Blood Cell Count 10.8 X10^3/uL (4.5-11.0)
[2021-04-18 07:08] LABS: BUN Creatinine Ratio 21.5 (6-22); Blood Urea Nitrogen 14 mg/dL (9-20); Calcium 9.4 mg/dL (8.4-10.2); Carbon Dioxide 32 mmol/L (22-32); Chloride 99 mmol/L (98-107); Estimated Glomerular Filt Rate > 60.0 mL/min (>60); Glucose 180 mg/dL (80-110); HEMOLYSIS < 15 (0-50); Potassium 4.2 mmol/L (3.4-5.1); Sodium 137 mmol/L (137-145)
[2021-04-18] MEDS: ALBUTEROL/IPRATROPIUM 3 ML AMPUL INH ×3 (07:17→18:31)
[2021-04-18] MEDS: BUDESONIDE 0.5 MG/2 ML NEB INH ×2 (07:17→18:30)
[2021-04-18] MEDS: THIAMINE 100 MG TABLET PO (09:48)
[2021-04-18] MEDS: FOLIC ACID 1 MG TABLET PO (09:48)
[2021-04-18] MEDS: AZITHROMYCIN 250 MG TABLET 500 MG PO (09:48)
[2021-04-18] MEDS: MULTIVITAMIN 1 TABLET 1 TAB PO (09:48)
[2021-04-18] MEDS: SODIUM CHLORIDE 0.9% 1,000 ML 1000 ML IV (12:02)
--- NOTE | 2021-04-18 13:15 | DI.CT.S_ITS ---
PROCEDURE: CT ANGIO CHEST ABDOMEN INDICATIONS: aortic dissection? TECHNIQUE: Precontrast 5 mm thick sections acquired from the lung apices to the iliac crests. After the administration of intravenous contrast, 2.5 mm thick sections again acquired from the lung apices to the iliac crests. 10 mm maximum intensity projection (MIP) oblique sagittal and coronal reformats were then acquired. For radiation dose reduction, the following was used: automated exposure control. COMPARISON: [facility], CT, CT ANGIO CHEST PE PROTOCOL, 04/17/2021, 16:00. [facility], CT, CT ANGIO CHEST PE PROTOCOL, 09/06/2020, 13:46. [facility], CR, XR CHEST 1V, 04/17/2021, 14:55. FINDINGS: Image quality: Excellent. AORTA: Normal caliber. No aneurysm or dissection. CHEST: Lungs and pleura: There are lung nodules. Reference nodules are listed in the following: Nodule 1: 0.5 cm; right lower lobe; series 6, image 143; solid. Nodule 2: 0.7 x 1.3 cm; right lower lobe; series 6 image 147; spiculated. Nodule 3: 0.5 cm; right lower lobe; series 6 image 196; spiculated. Nodule 4: 0.5 cm; right upper lobe; series 6, image 113; irregular. Infiltrate or consolidation in the left lower lobe. Calcifications of the hemidiaphragms bilaterally. There is interstitial prominence. No pleural effusions or pneumothorax. Central and peripheral airways are patent and normal in caliber. Mediastinum: Heart size is normal. There is severe coronary artery calcification. No pericardial effusion. No mediastinal or hilar adenopathy by size criteria. Central pulmonary arteries are normal in size. Esophagus is normal in caliber. No hiatal hernias. Bones and chest wall: No axillary adenopathy by size criteria. Thyroid gland is normal. No suspicious bony lesions. No vertebral body compression fractures. ABDOMEN: Vasculature: Severe stenosis at the origin of the celiac trunk and the proximal superior mesenteric artery. Inferior mesenteric artery is patent. There are severe stenoses of the proximal renal arteries bilaterally. Solid organs: Liver is normal in size and enhancement. Gallbladder is normal. Biliary system is non dilated. Pancreas enhances normally. Spleen is normal in size and enhancement. No adrenal nodules. Both kidneys are normal in size and enhancement, without hydronephrosis. Peritoneum and bowel: Stomach is distended with an air-fluid level. No free fluid or air. Bowel loops are normal in caliber and wall thickness. Nodes and vessels: No retroperitoneal or mesenteric adenopathy by size criteria. Inferior vena cava is normal in morphology. Bones: No suspicious bony lesions. No vertebral body compression fractures. Mild scoliosis. Aozctqut-lo-vctsng degenerative changes in lumbar spine. Miscellaneous: No ventral hernias. IMPRESSION: 1. No aortic aneurysm or dissection. 2. Severe atherosclerosis with high-grade stenosis of the celiac trunk, superior mesenteric artery and renal arteries bilaterally. 3. Left lower lobe infiltrate and consolidation suspicious for pneumonia. 4. Bilateral pulmonary interstitial prominence suggesting interstitial lung disease. 5. Severe coronary artery calcification. 6. Multiple lung nodules are present. Recommend a follow-up CT in 3-6 months. 7. Severe degenerative changes in the lower lumbar spine. Dictated by: Alis Reyna M.D. on 04/18/2021 at 15:27 Approved by: Alis Reyna M.D. on 04/18/2021 at 16:18
--- NOTE | 2021-04-18 15:39 | DIET.CONS ---
Dietary Consultation Note Admission Date: 04/17/2021 18:22 Assessment: 70y M admitted with acute exacerbation of COPD and acute hypoxic respiratory failure with current daily smoking and etoh dependence referred to nutrition for recent weight loss. RD met c pt at bedside, pt resides in tiny home on [facility]. Has lived without electricity for 22y but does have a generator he occasionally uses and often charges his cell phone in his vehicle. Pt does not have running water but uses [employer] [place] or purchases water during dry summer season. Pt reports no food insecurity, often taking his extra food to local food bank. Pt reports he is terrible cook and can go a day or two without eating without thinking about it. Usual Day: B: muffin and coffee L: skips D: rice with something or once weekly shane with fries Pt reports taking MVI at home as well as supplemental Vitamin C. Pt endorses increased work of breathing, gets winded when walking more than a block and decreased appetite over past 3mo with 5# unintentional weight loss. Admit hospitalist reports pt cachectic and dischevelled. Ht: 170.18 cm Wt: 60.1 kg BMI: 20.3 Last BM: 04/17/21 (04/17/21 18:59) MNA: 9 Pritesh Score: 21 Diet: 04/17/21 Breakfast General (Regular) Diet Diet Modifications: Nutrition Percent Meal Consumed 100% 04/18/21 12:00 Percent Meal Consumed 90% 04/18/21 10:58 Labs: RBC 4.88 X10^6/uL (4.5-5.9) 04/18/21 06:40 Hgb 15.2 g/dL (13.5-17.5) 04/18/21 06:40 Hct 45.7 % (41-53) 04/18/21 06:40 Creatinine 0.65 mg/dL (0.66-1.25) L 04/18/21 06:40 Lactate 2.1 mmol/L (0.7-2.1) 04/17/21 16:45 NT-Pro-B Natriuret Pep 248 pg/mL (<125) H 04/17/21 14:15 Nutrition Diagnosis: Chronic Moderate Malnutrition r/t progressing COPD with frequent exacerbations aeb BMI 20.5 (severe for age), pt reports 5# unintentional weight loss in past 3 months related to work of breathing and reduced appetite awareness, pt consumes 2 meals and no snacks daily. Interventions: 1. Pts POs 90-100% at this time, if POs <75% recc ONS supplement to support nutrition status. EER: 72g PRO (1.2g/kg), 2100kcal (35kcal/kg) Monitoring/Evaluations: POs Electronically Signed by: Maggie Taylor 04/18/21 15:39 Clinical Dietitian [address] [address]
--- NOTE | 2021-04-18 18:14 | P.PN_ITS ---
Subjective Subjective Date Patient Seen: 04/18/21 Time Patient Seen: 08:00 Interval history: Today he states he felt dizzy. He still is short of breath. He has no chest pain. Exam Vital Signs (past 8 hours): - 04/18/21 11:57 04/18/21 13:13 04/18/21 14:47 Temperature 97.6 F Pulse Rate 76 Respiratory Rate 14 Blood Pressure 120/70 123/67 Pulse Oximetry 93 92 Oxygen Delivery Method Nasal Cannula Oxygen Flow Rate 1.5 Narrative Exam Narrative: GEN: no acute distress CV: regular rate and rhythm PULM: wheezes bilaterally ABD: soft, nontender, nondistended, no organomegaly Objective Labs Result Diagrams: 04/18/21 06:40 04/18/21 06:40 Labs: Laboratory Results - last 24 hr 04/17/21 04/17/21 04/18/21 14:13 18:35 05:41 WBC RBC Hgb Hct MCV MCH MCHC RDW Plt Count Neut % (Auto) Lymph % (Auto) [place] % (Auto) Eos % (Auto) Baso % (Auto) Neut # (Auto) Lymph # (Auto) [place] # (Auto) Eos # (Auto) Baso # (Auto) ABG pH 7.35 7.38 ABG pCO2 58.2 H 52.7 H ABG pO2 62 L 80 ABG HCO3 32 H 31 H ABG Total CO2 34 H 32 H ABG O2 Saturation 89 L 95 ABG Base Excess 7.0 H 6.0 H FiO2 28 28 Sodium Potassium Chloride Carbon Dioxide BUN Creatinine Estimated GFR BUN/Creatinine Ratio Glucose Calcium Chlamy pneumoniae PCR Not detected Adenovirus (PCR) Not detected B. pertussis DNA (PCR) Not detected B.parapertussis DNA PCR Not detected Coronavirus OC43 (PCR) Not detected Coronavirus HKU1 (PCR) Not detected Coronavirus 229E (PCR) Not detected SARS-CoV-2 (PCR) Not detected Coronavirus NL63 (PCR) Not detected Human Metapneumovir PCR Not detected Influenza Type A (PCR) Not detected Influenza Type B (PCR) Not detected M. pneumoniae (PCR) Not detected Parainfluenza 1 (PCR) Not detected Parainfluenza 2 (PCR) Not detected Parainfluenza 3 (PCR) Not detected Parainfluenza 4 (PCR) Not detected RSV (PCR) Not detected Entero/Rhino (PCR) Not detected 04/18/21 04/18/21 06:40 06:40 WBC 10.8 RBC 4.88 Hgb 15.2 Hct 45.7 MCV 93.7 MCH 31.2 MCHC 33.4 RDW 13.7 Plt Count 379 Neut % (Auto) 88.0 H D Lymph % (Auto) 5.5 L [place] % (Auto) 6.3 Eos % (Auto) 0.0 L Baso % (Auto) 0.2 Neut # (Auto) 9500 H Lymph # (Auto) 600 L [place] # (Auto) 700 Eos # (Auto) 0 Baso # (Auto) 0 ABG pH ABG pCO2 ABG pO2 ABG HCO3 ABG Total CO2 ABG O2 Saturation ABG Base Excess FiO2 Sodium 137 Potassium 4.2 Chloride 99 Carbon Dioxide 32 BUN 14 Creatinine 0.65 L Estimated GFR > 60.0 BUN/Creatinine Ratio 21.5 Glucose 180 H Calcium 9.4 Chlamy pneumoniae PCR Adenovirus (PCR) B. pertussis DNA (PCR) B.parapertussis DNA PCR Coronavirus OC43 (PCR) Coronavirus HKU1 (PCR) Coronavirus 229E (PCR) SARS-CoV-2 (PCR) Coronavirus NL63 (PCR) Human Metapneumovir PCR Influenza Type A (PCR) Influenza Type B (PCR) M. pneumoniae (PCR) Parainfluenza 1 (PCR) Parainfluenza 2 (PCR) Parainfluenza 3 (PCR) Parainfluenza 4 (PCR) RSV (PCR) Entero/Rhino (PCR) PFSH Medical History Acute bronchitis Alcohol dependence Atypical ductal hyperplasia of right breast Chronic cough (2017) Depression Fractures (Unknown) Incidental lung nodule, > 3mm and < 8mm Partial blindness (Unknown) Schizophrenia (Unknown) Substance abuse (Unknown) Tobacco use Surgical History History of open reduction and internal fixation (ORIF) procedure (Unknown) Hx of hernia repair Social History household members: none Smoking Status: Current every day smoker Tobacco: How many years used: 45 quit status: considering quitting second hand exposure: Yes alcohol intake: current substance use type: does not use Assessment & Plan Assessment & Plan narrative: 1. Acute hypoxemic respiratory failure secondary to acute COPD exacerbation, and pneumonia -continue oxygen and titrate off as able -continue nebs, steroids, azithro for COPD -continue ceftriaxone for pneumonia 2. Alcohol dependence -continue ciwa protocol, with ativan prn, mvi, thiamine, folate 3. Lung nodule -known from past, patient has not followed up Time Spent With Patient Critical Care time: I spent a total of [] minutes of critical care time on this patient's care today; this time is exclusive of procedural time. Quality VTE Deep Vein Thrombosis/Pulmonary Embolism Present on Admission: No
[2021-04-18] MEDS: methylPREDNISolone 125 MG/2 ML VIAL 60 MG IV (18:39)
[2021-04-18] MEDS: cefTRIAXone 1,000 MG in SODIUM CHLORIDE 0.9% 100 ML 200 ML IV (18:41)
--- NOTE | 2021-04-18 21:15 | PC.NURSE ---
2100: a/o, voices needs. denies pain, reports some discomfort w/ SOB w/ exertion. continues on CPOX, sats mid 90s at rest. o2 1.5LPM via NC. PC w/ clear watery sputum. encouraged to spit up and not swallow. as per report, spo2 varies depending on what extremity is used. Right side is 90 spo2, left side is 94 spo2. CIWA= 0 face is flushed red, skin is extremely dry. encouraged a shower in AM. house lotion applied liberally to arms and legs. ice water and call light w/in reach.
[2021-04-18] MEDS: ACETAMINOPHEN 325 MG TABLET 650 MG PO (23:35)
[2021-04-19] VITALS (9 sets, daily range): BP systolic 119–131; BP diastolic 63–69; PULSE 70–80; RESP 16–20; TEMP 36.7; O2SAT 92–93
[2021-04-19] MEDS: methylPREDNISolone 125 MG/2 ML VIAL 60 MG IV ×2 (05:44→18:27)
[2021-04-19 06:30] LABS: Hematocrit 41.7 % (41-53); Hemoglobin 13.8 g/dL (13.5-17.5); Mean Corpuscular Hemoglobin 31.2 PG (26-34); Mean Corpuscular Volume 94.4 fL (80-100); Platelet Count 349 X10^3/uL (150-400); Red Blood Cell Count 4.42 X10^6/uL (4.5-5.9); Red Cell Distribution Width 13.7 % (11.6-14.8); White Blood Cell Count 13.2 X10^3/uL (4.5-11.0)
[2021-04-19 06:36] LABS: BUN Creatinine Ratio 22.8 (6-22); Blood Urea Nitrogen 13 mg/dL (9-20); Calcium 8.9 mg/dL (8.4-10.2); Carbon Dioxide 31 mmol/L (22-32); Chloride 103 mmol/L (98-107); Estimated Glomerular Filt Rate > 60.0 mL/min (>60); Glucose 134 mg/dL (80-110); HEMOLYSIS < 15 (0-50); Potassium 4.7 mmol/L (3.4-5.1); Sodium 135 mmol/L (137-145)
[2021-04-19] MEDS: ALBUTEROL/IPRATROPIUM 3 ML AMPUL INH ×4 (07:36→19:26)
[2021-04-19] MEDS: BUDESONIDE 0.5 MG/2 ML NEB INH ×2 (07:36→19:26)
[2021-04-19] MEDS: MULTIVITAMIN 1 TABLET 1 TAB PO (09:55)
[2021-04-19] MEDS: THIAMINE 100 MG TABLET PO (09:55)
[2021-04-19] MEDS: AZITHROMYCIN 250 MG TABLET 500 MG PO (09:55)
[2021-04-19] MEDS: FOLIC ACID 1 MG TABLET PO (09:55)
--- NOTE | 2021-04-19 10:23 | PC.NURSE ---
Patient wanted to go for a walk in the hallway and to test his O2 Sat. As we got going his breathing was becoming harder. Pulse/Ox reading 68-72, had a wheel chair brought for him. Took him back to his room and put him on 2L O2 nasal canula.
--- NOTE | 2021-04-19 16:01 | CM.IDA ---
Initial DCP Assessment Note Pt is a 70 yo male, resident of [facility], arrives w/ shortness of breath/dyspnea, low oxygen and admitted for Acute hypoxemic respiratory failure secondary to acute COPD exacerbation, and pneumonia. per ER documentation: (patient) continues to smoke a half pack daily who drink 9 at time beers nightly, occasional marijuana but no other illicit. PCP: Jean Claude Potter Payer: [facility]/ [employer] Reviewed chart, patient can be DC home today if he can leave with home O2. Patient qualifies per RT but O2 will not be sustainable w/patient's current living arrangement; Met w/patient this morning, introduced role. Patient admits he sleeps in his truck most nights in order to use the heater. See Cyber Incident Responder Maggie Taylor' note for more information re patient When patient doesn't require heat, he sleeps in a cot in an unfinished structure that he has built on the property where he lives . Patient uses a generator and a battery to power devices that require electricity. Patient uses an oxygen device that provides him, once charged, with approx 4 hours of portable O2 for errands/shopping which patient states admits is not very often Patient receives approx $800 in SS monthly and $40 in food stamps monthly. Patient says he has friends that can assist him on [facility] when I ask them. Patient admits to this AVIONICS SYSTEMS INTEGRATION SPECIALIST that his living arrangement may not last indefinitely as his medical needs increase. Patient will not discuss this further. Patient plans to ask a friend to transport him home upon DC. RT has updated Dr Holder- patient will not be able to secure home O2 under his circumstance. Patient will likely remain admitted this evening. This AVIONICS SYSTEMS INTEGRATION SPECIALIST will remain available in case DC needs/concerns arise that can be addressed by CM team. ALFONSO Patino Discharge Planning/Care Management CM Discharge Assessment Start: 04/19/21 15:56 Freq: Status: Active Protocol: Document 04/19/21 15:56 RASHID (Rec: 04/19/21 16:01 RASHID [id number]) Discharge Planning Assessment Assigned Steamfitter Supervisor ALFONSO Berrios DPOA/Assigned Designee Name No DPOA Contact Information Guillermina, friend P# [phone] Jose Alfaro, friend P# [phone] Advance Directives? No History Provided By Patient Comment Truck and an unfinished structure he has built that he can sleep in when it's warm enough outside Household Members none Type of transporation used prior to Drives own vehicle admit Independent with ADL's Yes: Low activity tolerance Is patient alert and oriented? Yes Caregiver for Another No Barriers to Discharge Yes Comment See narrative. additionally; From assessment completed August 2020: Patient does consume a significant amount of alcohol, but is not wanting any resources, and will continue drinking Discharge Plan Home Transportation Arrangement Friend Referrals Initiated None needed
[2021-04-19] MEDS: cefTRIAXone 1,000 MG in SODIUM CHLORIDE 0.9% 100 ML 200 ML IV (18:28)
--- NOTE | 2021-04-19 20:09 | PM.PN.1 ---
Subjective Subjective Date Patient Seen: 04/19/21 Time Patient Seen: 08:00 Interval history: Today he states his breathing is improved. He is up for going home. He has no shortness of breath at rest. He did desaturate with ambulation. Exam Vital Signs (past 8 hours): - 04/19/21 14:43 04/19/21 15:41 04/19/21 19:26 Pulse Rate 70 70 Respiratory Rate 18 18 Pulse Oximetry 92 93 92 Oxygen Delivery Method Nasal Cannula Oxygen Flow Rate 2 Narrative Exam Narrative: GEN: no acute distress CV: regular rate and rhythm PULM: wheezes bilaterally ABD: soft, nontender, nondistended, no organomegaly Objective Labs Result Diagrams: 04/19/21 06:15 04/19/21 06:15 Labs: Laboratory Results - last 24 hr 04/19/21 04/19/21 06:15 06:15 WBC 13.2 H RBC 4.42 L Hgb 13.8 Hct 41.7 MCV 94.4 MCH 31.2 MCHC 33.0 RDW 13.7 Plt Count 349 Sodium 135 L Potassium 4.7 Chloride 103 Carbon Dioxide 31 BUN 13 Creatinine 0.57 L Estimated GFR > 60.0 BUN/Creatinine Ratio 22.8 H Glucose 134 H Calcium 8.9 PFSH Medical History Acute bronchitis Alcohol dependence Atypical ductal hyperplasia of right breast Chronic cough (2017) Depression Fractures (Unknown) Incidental lung nodule, > 3mm and < 8mm Partial blindness (Unknown) Schizophrenia (Unknown) Substance abuse (Unknown) Tobacco use Surgical History History of open reduction and internal fixation (ORIF) procedure (Unknown) Hx of hernia repair Social History household members: none Smoking Status: Current every day smoker Tobacco: How many years used: 45 quit status: considering quitting second hand exposure: Yes alcohol intake: current substance use type: does not use Assessment & Plan Assessment & Plan narrative: 1. Acute hypoxemic respiratory failure secondary to acute COPD exacerbation, and pneumonia -continue oxygen and titrate off as able -continue nebs, steroids, azithro for COPD -continue ceftriaxone for pneumonia 2. Alcohol dependence -continue ciwa protocol, with ativan prn, mvi, thiamine, folate 3. Lung nodule -known from past, patient has not followed up -follow up as outpatient Dispo: patient is stable for discharge home with oxygen, awaits safe dispo to see if that is arranged at home Time Spent With Patient Critical Care time: I spent a total of [] minutes of critical care time on this patient's care today; this time is exclusive of procedural time. Quality VTE Deep Vein Thrombosis/Pulmonary Embolism Present on Admission: No
[2021-04-20] VITALS (10 sets, daily range): BP systolic 107–146; BP diastolic 71–92; PULSE 76–99; RESP 15–24; TEMP 36.3–36.6; O2SAT 92–99
[2021-04-20] MEDS: methylPREDNISolone 125 MG/2 ML VIAL 60 MG IV (05:58)
[2021-04-20] MEDS: ACETAMINOPHEN 325 MG TABLET 650 MG PO (06:02)
[2021-04-20] MEDS: THIAMINE 100 MG TABLET PO (09:08)
[2021-04-20] MEDS: MULTIVITAMIN 1 TABLET 1 TAB PO (09:08)
[2021-04-20] MEDS: FOLIC ACID 1 MG TABLET PO (09:08)
[2021-04-20] MEDS: AZITHROMYCIN 250 MG TABLET 500 MG PO (09:12)
[2021-04-20] MEDS: BUDESONIDE 0.5 MG/2 ML NEB INH ×2 (09:32→19:43)
[2021-04-20] MEDS: ALBUTEROL/IPRATROPIUM 3 ML AMPUL INH ×4 (09:32→23:39)
--- NOTE | 2021-04-20 11:12 | PC.NURSE ---
Pt alert and oriented, up in room, trying to get exercise in room. Taking some b'fast. and SW discussing discharge plan. Placement concerns limit d/c plan presently.
--- NOTE | 2021-04-20 19:40 | PM.DS.1 ---
History of Present Illness History of Present Illness Chief complaint: blood oxygen level down cant breath Narrative: Pk Matthews: Dolores Rivera S a 70-year-old male who presented to the emergency department with a complaint of inability to breathe, low blood pressure and dizziness for about 1 week.? He denies fever chills sweats or chills, he is not vaccinated for COVID pneumonia and is not interested in being vaccinated. Denies chest pain, nausea vomiting, abdominal pain, dysuria, diarrhea or constipation.? Patient attributes COPD after living in a RV and having mold in it.? He currently lives in a ?tiny house? that he bill for himself on [facility]. In the emergency department he was sent for a CTA due to being hypoxemic at rest being in the 70s to 80s when normally he is in the mid 90s.? Chest x-ray was normal, CTA did indicate what appeared to be spiculated nodules, did not comment on laterality.? Apparently the lung masses have been present for some time but the patient has not followed up on this.? Patient is afebrile, his blood pressure is 97/70, heart rate 85, respiratory rate 18, oxygen saturation 92% on 2 L, he weighs 60 kg with a BMI of 20.3.? His white count is unremarkable, he does have elevated platelet count of 438, sodium 135, chloride 93, bicarb 34, BUN 6, creatinine 0.63, glucose 205, total creatinine kinase was 37, proBNP 248 largely within normal, COVID-19 rapid and PCR were both negative. Discharge Providers Provider Date of admission: 04/17/21 18:22 Discharge Date: 04/20/21 Primary care physician: Jean Claude Potter DO Consults: 04/17/21 19:12 Consult to Dietitian, Adult Routine Comment: Reason For Exam: increased weight loose recently 04/19/21 09:21 Consult to Respiratory Therapy Evaluate & Treat Comment: home o2 eval Physician Instructions: Evaluate and treat Discharge provider: David Coffman MD Summary Hospital Course Discharge Diagnosis: 1. Acute hypoxemic respiratory failure secondary to acute COPD exacerbation and pneumonia 2. Alcohol dependence 3. Lung nodule 4. Active smoker Hospital Course: Mr. Rivera came in to the hospital with shortness of breath. He was found to have COPD and a pneumonia and was treated with antibiotics, steroids, nebulizers. He improved and on day of discharge said he felt at his baseline. He was still quite short of breath with activity, and did desat to the 70s off oxygen. O2 ambulation trial was done and he was recommended to use 1L o2 at rest, 2L with activity. His living situation lacks consistent eletricity, but he has a generator. He is able to use oxygen with the generator. He will be discharged home. He has a known lung nodule that is spiculated, and has been encouraged months ago to follow up, and he is encouraged again to follow up with his PCP. He was counselled to stop smoking. CODE: DNR Exam Vital Signs (past 8 hours): - 04/20/21 14:02 04/20/21 15:00 04/20/21 17:55 Temperature 97.9 F Pulse Rate 84 91 H Respiratory Rate 22 18 Blood Pressure 144/89 H Pulse Oximetry 96 95 96 Oxygen Delivery Method Nasal Cannula Oxygen Flow Rate 2 Narrative Exam Narrative: GEN: no acute distress CV: regular rate and rhythm PULM: clear bilaterally ABD: soft, nontender, nondistended, no organomegaly Objective Labs Result Diagrams: 04/19/21 06:15 04/19/21 06:15 [facility] Medical History Acute bronchitis Alcohol dependence Atypical ductal hyperplasia of right breast Chronic cough (2017) Depression Fractures (Unknown) Incidental lung nodule, > 3mm and < 8mm Partial blindness (Unknown) Schizophrenia (Unknown) Substance abuse (Unknown) Tobacco use Surgical History History of open reduction and internal fixation (ORIF) procedure (Unknown) Hx of hernia repair Social History household members: none Smoking Status: Current every day smoker Tobacco: How many years used: 45 quit status: considering quitting second hand exposure: Yes alcohol intake: current substance use type: does not use Discharge Plan Discharge Plan Patient Disposition: Home Provider Discharge Comment: Mr. Rivera came in with trouble breathing. He had a COPD exacerbation and a pneumonia. He is encouraged to stop smoking. He has a known abnormality in his lung, and he is encouraged to follow up with his PCP for the next steps. He is discharged with antibiotics and steroids to improve his breathing. He did desaturate with ambulation to the 70s, and improved with oxygen. He will be discharged with 1L O2 at rest, 2L with activity. Discharge orders & Medications Prescriptions: New levofloxacin 750 mg tablet 750 mg PO DAILY Qty: 4 0RF prednisone 50 mg tablet 50 mg PO DAILY Qty: 3 0RF Continued Combivent Respimat 20-100 mcg/actuation mist 1 puff inhalation Q4H Qty: 4 1RF albuterol sulfate [ProAir HFA] 90 mcg/actuation HFA aerosol inhaler 2 puff INHALATION QID PRN (Reason: shortness of breath or wheezing) Qty: 8.5 1RF Follow up/Referrals: Jean Claude Potter, [Primary Care Provider] - Diet/Activity/Treatments Diet: Diet as Tolerated Visit Report/Discharge Packet Instructions: DI for Chronic Obstructive Pulmonary Disease Discharge Data Primary Care Provider: Jean Claude Potter Quality VTE Deep Vein Thrombosis/Pulmonary Embolism Present on Admission: No
[2021-04-21 05:55] VITALS: O2SAT 93
[2021-04-21] MEDS: methylPREDNISolone 125 MG/2 ML VIAL 60 MG IV (06:58)
[2021-04-21] MEDS: BUDESONIDE 0.5 MG/2 ML NEB INH (07:57)
[2021-04-21] MEDS: ALBUTEROL/IPRATROPIUM 3 ML AMPUL INH (07:57)
[2021-04-21 07:59] VITALS: PULSE 84; RESP 20; O2SAT 93
[2021-04-21 08:05] VITALS: PULSE 72; RESP 20
[2021-04-21] MEDS: MULTIVITAMIN 1 TABLET 1 TAB PO (09:18)
[2021-04-21] MEDS: FOLIC ACID 1 MG TABLET PO (09:18)
[2021-04-21] MEDS: AZITHROMYCIN 250 MG TABLET 500 MG PO (09:18)
--- NOTE | 2021-04-21 09:21 | PC.NURSE ---
Addendum entered by Kylee Bravo R.N. 04/21/21 09:51: Discharged home via private vehicle with O2 concentrator. Original Note: Discharge note: Discharge instructions given to patient, discussed importance of F/U with Dr. Potter, new medication/adherence, and home O2 therapy use/safety (set up by RT). Discussed importance of signs of worsening symptoms. COPD written information given. Belongings from safe retrieved. Patient verbalized understanding of instructions.
== END 2021-04-21 09:46 | disposition home or self-care (01) | DRG 189 ==
LOC: ED 18:09 → AC 04-18 07:53
PROVIDERS: Nurse Practitioner Family; Admitting Provider Internal Medicine; Emergency Provider Emergency Medicine; PCP Family Medicine; Referring Provider Emergency Medicine; Visit Provider Internal Medicine
DX: J96.01 Acute respiratory failure with hypoxia (principal); J18.9 Pneumonia, unspecified organism; J44.1 Chronic obstructive pulmonary disease with (acute) exacerbation; F10.20 Alcohol dependence, uncomplicated; R91.8 Other nonspecific abnormal finding of lung field; F17.210 Nicotine dependence, cigarettes, uncomplicated; Z20.822 Contact with and (suspected) exposure to COVID-19; Z66 Do not resuscitate
CPT/HCPCS: 36415; 36600; 71045; 71275; 74175; 80048; 80053; 82550; 82805; 83605; 83880; 84484; 85025; 85027; 85610; 87633; 87635; 93005; 93010; 94618; 94640; 94760; 94762; 96374; 99285; C9803; J0696; J2930; J7613; Q9967

== ENCOUNTER 2022-03-11 18:01 | Observation (INO) | payer MEDICARE, MEDICAID, SELFPAY ==
[2021-04-17 18:59] VITALS: BMI 20.3
[2022-03-11 18:15] VITALS: BP 106/77; PULSE 36; RESP 99; TEMP 37.3; O2SAT 92; BMI 19.8
--- NOTE | 2022-03-11 18:23 | DI.RAD.S_ITS ---
PROCEDURE: XR CHEST 1V INDICATIONS: chest pain TECHNIQUE: One view of the chest was acquired. COMPARISON: [facility], CR, XR CHEST 1V, 04/17/2021, 14:55. [facility], CR, XR CHEST 1V, 09/06/2020, 12:27. FINDINGS: Surgical changes and devices: None. Lungs and pleura: No dense consolidation. Prominence of the interstitium is present. Possible small pleural effusions versus thickening. Mediastinum: Mediastinal contours appear normal. Heart size is normal. Bones and chest wall: No suspicious bony lesions. Overlying soft tissues appear unremarkable. IMPRESSION: Mildly prominent interstitium could represent atypical infection versus edema. There may also be trace effusions versus thickening. Consider future imaging surveillance to assess for resolution. Dictated by: Valdez Anguiano M.D. on 03/11/2022 at 19:10 Approved by: Valdez Anguiano M.D. on 03/11/2022 at 19:11
[2022-03-11] MEDS: ASPIRIN 81 MG CHEW TAB 324 MG PO (18:40)
[2022-03-11 19:07] LABS: Add Manual Diff / Slide Review NO; Basophils Absolute Auto 0 /uL (0-100); Basophils Percent Auto 0.3 % (0-2); Eosinophils Absolute Auto 500 /uL (0-450); Eosinophils Percent Auto 6.3 % (2-4); Hematocrit 47.7 % (41-53); Hemoglobin 16.1 g/dL (13.5-17.5); Lymphocytes Absolute Auto 2300 /uL (1100-4500); Lymphocytes Percent Auto 26.8 % (25-40); Mean Corpuscular HGB Conc 33.8 % (30-36); Mean Corpuscular Hemoglobin 31.5 PG (26-34); Monocytes Absolute Auto 1100 /uL (0-900); Monocytes Percent Auto 12.7 % (3-14); Neutrophils Absolute Auto 4600 /uL (1500-7000); Neutrophils Percent Auto 53.9 % (50-75); Platelet Count 346 X10^3/uL (150-400); Red Blood Cell Count 5.12 X10^6/uL (4.5-5.9); Red Cell Distribution Width 13.1 % (11.6-14.8); White Blood Cell Count 8.5 X10^3/uL (4.5-11.0)
[2022-03-11 19:16] LABS: Prothrombin Time 11.4 SECONDS (10.1-12.7)
[2022-03-11 19:19] LABS: PTT Partial Thromboplastin Tim 32 SECONDS (26-36)
[2022-03-11 19:20] LABS: Alanine Aminotransferase 16 IU/L (<50); Albumin Globulin Ratio 1.1 (1.0-2.8); Alkaline Phosphatase 78 U/L (38-126); Aspartate Aminotransferase 34 IU/L (17-59); BUN Creatinine Ratio 16.1 (6-22); Bilirubin Total 0.4 mg/dL (0.2-1.3); Blood Urea Nitrogen 9 mg/dL (9-20); Calcium 8.6 mg/dL (8.4-10.2); Carbon Dioxide 31 mmol/L (22-32); Chloride 100 mmol/L (98-107); Creatine Kinase 56 U/L (55-170); Estimated Glomerular Filt Rate > 60 mL/min (>60); Globulin 3.5 g/dL (1.7-4.1); Glucose 96 mg/dL (80-110); Lipase 64 U/L (23-300); Potassium 4.6 mmol/L (3.4-5.1); Sodium 136 mmol/L (137-145); Total Protein 7.5 g/dL (6.3-8.2)
[2022-03-11 19:25] LABS: HEMOLYSIS 72 (0-50)
[2022-03-11 19:31] LABS: Troponin I < 0.012 ng/mL (0.01-0.034)
[2022-03-11 19:42] LABS: Influenza A - CEPHEID Flu A NEGATIVE (NEGATIVE); Influenza B - CEPHEID Flu B NEGATIVE (NEGATIVE); Respiratory Syncytial Virus Negative (Negative)
[2022-03-11 19:45] LABS: COVID-19 CEPHEID 4-PLEX PCR Negative (Negative)
[2022-03-11 20:33] VITALS: BP 125/85; PULSE 88; O2SAT 88
[2022-03-11 20:45] VITALS: BP 119/71; PULSE 80; O2SAT 95
--- NOTE | 2022-03-11 20:55 | PC.NURSE ---
Pt had an episode of sharp, right sided chest pain that lasted not for very long, that began around 1700 and has now resolved. Pt c/o of intermittent blurry vision, dizziness and SOB, and bilateral lower leg weakness. Pt is A&Ox4. Pt reports hx of MD, chronic productive cough and COPD. Not on oxygen at home.
[2022-03-11 21:00] VITALS: BP 119/71; PULSE 79; RESP 30; O2SAT 95
--- NOTE | 2022-03-11 21:22 | ED.SOB ---
HPI - SOB/Dyspnea General Chief Complaint: Dizziness Stated Complaint: Dizziness, Blurred vision, Chills, Shaking Time Seen by Provider: 03/11/22 21:10 Source: patient Mode of arrival: Wheelchair Limitations: no limitations History of Present Illness HPI Narrative: Patient here for variable complaints. [place] the day. He is getting ready to leave to go back on the [place]. However at 5:00 p.m. he felt lightheaded and briefly blurry vision. Then had brief mild right-sided chest discomfort which resolved. Then he came short of breath. He is feeling better now. He does have history of COPD. Has inhaler but did not use them this evening. Is not on home oxygen. Patient in no distress at this time denies any headache dizziness blurry vision or chest pain. He did have some chills earlier. Patient does smoke. Related Data Previous Rx's Medication Instructions Recorded Nasal Canula/Tubing #1 ea 04/30/21 O2 Concentrator #1 ea 04/30/21 albuterol sulfate 90 mcg/actuation 2 puff inhalation QID PRN 03/11/22 aerosol inhaler (ProAir HFA) shortness of breath or wheezing #8.5 grams aspirin 81 mg tablet,delayed 81 mg PO DAILY #30 tabs 03/11/22 release atorvastatin 80 mg tablet 80 mg PO DAILY #30 tabs 03/11/22 ipratropium 20 mcg-albuterol 100 1 puff inhalation Q4H #4 grams 03/11/22 mcg/actuation mist for inhalation (Combivent Respimat) Allergies Allergy/AdvReac Type Severity Reaction Status Date / Time No Known Drug Allergies Allergy Verified 03/11/22 18:41 Review of Systems Review of Systems Narrative: GENERAL: Positive chills, negative fatigue, malaise, fever, sweats. HEENT: negative sinus pain, ear pain, sore throat, positive blurry vision RESPIRATORY: Positive dyspnea, cough CARDIOVASCULAR: Positive chest pain, negative palpitations GASTROINTESTINAL: negative nausea, vomiting, abdominal pain : negative dysuria, frequency, hematuria MUSCULOSKELETAL: negative muscle or bony pain SKIN: negative rash, skin lesions NEUROLOGIC: negative weakness, numbness, positive dizziness ROS Unobtainable: All systems reviewed & are unremarkable except as noted in HPI and below Patient History Medical History Acute bronchitis Alcohol dependence Atypical ductal hyperplasia of right breast Chronic cough (2017) Depression End stage COPD Fractures (Unknown) Incidental lung nodule, > 3mm and < 8mm Partial blindness (Unknown) Schizophrenia (Unknown) Substance abuse (Unknown) Tobacco use Surgical History History of open reduction and internal fixation (ORIF) procedure (Unknown) Hx of hernia repair Social History household members: none Smoking Status: Current every day smoker Tobacco: How many years used: 45 quit status: considering quitting second hand exposure: Yes alcohol intake: current substance use type: does not use Smoking Status: Current every day smoker alcohol intake frequency: 3 or more drinks per day Alcohol type: beer Substance Use Type: marijuana Exam Narrative Exam Narrative: GENERAL: in no distress, not toxic not dyspneic HEAD: Normocephalic. EYES: Pupils equal round No scleral icterus. ENT: Mucous membranes moist. NECK: Trachea midline. CARDIOVASCULAR: Regular rate and rhythm without murmurs RESPIRATORY: Coarse bilateral lung sounds. Diminished lung sounds bilaterally. Mild wheezing. However patient is speaking full sentences. GASTROINTESTINAL: Abdomen soft, non-tender EXTREMITIES: No gross deformities. BACK: No flank tenderness. NEURO: AOx4. SKIN: Warm and dry PSYCH: Not anxious, is cooperative Initial Vital Signs Initial Vital Signs: Vital Signs Temperature 99.1 F 03/11/22 18:15 Pulse Rate 36 L 03/11/22 18:15 Respiratory Rate 99 H 03/11/22 18:15 Blood Pressure 106/77 03/11/22 18:15 Pulse Oximetry 92 03/11/22 18:15 Oxygen Delivery Method 03/11/22 18:15 Course Course Course Narrative: No new issues during course of stay Orders Ordered: ED Orders 03/11/22 21:11 BNP [NT-proBNP (BNP-Adult 18+)] Stat 03/11/22 21:25 CT angio head and neck Stat 03/11/22 22:11 Troponin & CK Cardiac Panel Stat Discontinued Medications Albuterol/Ipratropium (Albuterol/Ipratropium 3 Ml Ampul) 3 ml INH NOW ONE Stop: 03/11/22 21:18 Last Admin: 03/11/22 21:24 Dose: 3 ml Documented By: KEMAL Albuterol/Ipratropium (Albuterol/Ipratropium 3 Ml Ampul) 3 ml INH NOW ONE Stop: 03/12/22 03:06 Last Admin: 03/12/22 03:44 Dose: 3 ml Documented By: KEMAL Aspirin (Aspirin 81 Mg Chew Tab) 324 mg PO NOW ONE Stop: 03/11/22 18:24 Last Admin: 03/11/22 18:40 Dose: 324 mg Documented By: DRE Benzonatate (Benzonatate 100 Mg Capsule) 100 mg PO NOW ONE Stop: 03/11/22 22:33 Last Admin: 03/11/22 23:42 Dose: 100 mg Documented By: KRISHAN Sodium Chloride (Normal Saline 0.9%) 500 mls @ 1,000 mls/hr IV BOLUS ONE Stop: 03/11/22 21:54 Last Infusion: 03/11/22 22:24 Dose: 0 mls/hr Documented By: Admin: 03/11/22 21:37 Dose: 1,000 mls/hr Documented By: LIGIA Methylprednisolone (Methylprednisolone 125 Mg/2 Ml Vial) 125 mg IV NOW ONE Stop: 03/12/22 03:05 Reevaluation(s) Reevaluation #1: Patient in no distress at this time. Is on 1 L nasal cannula. Have reviewed with patient results so far. Or laboratory studies have been ordered as well as CT scan of the head. Time: 21:24 Reevaluation #2: Patient feeling much better after breathing treatment. Resting comfortably no distress. I reviewed results with patient and my conversation with Neurology. He states he will take the prescription but likely not take atorvastatin. He would like to try to change his diet. He will try to decrease his smoking. Patient in no distress at this time. He will follow up with his family doctor regarding CT scan angiogram findings of his carotid arteries for possible referral to vascular surgeon for evaluation Time: 23:13 Reevaluation #3: Patient sleeping comfortably no distress. On monitor. No arrhythmia. No respiratory distress. Reviewed final results with patient. Will need follow up with primary care. Encouraged him to stop smoking. He does have breathing treatments and inhaler at home. Time: 02:42 Additional Reevaluation(s): 3:02 a.[address].. Ambulated patient hallway and patient was dyspneic at 84% room air. Placed back in his room and nasal cannula at 2 L and feeling much better. Disposition has changed, patient will now be admitted Consultations Consultation #1: Spoke with [facility] stroke/Neurology, Dr. Philip, at this time she is not feel event was vascular/TIA or stroke. Patient can follow up with primary care regarding CT angiogram findings. Would recommend starting patient on aspirin and atorvastatin. Time: 23:06 Vital Signs Vital signs: Vital Signs - 8 hr 03/11/22 20:33 03/11/22 20:33 03/11/22 20:45 Pulse Rate 88 Respiratory Rate Blood Pressure 125/85 119/71 Pulse Oximetry 88 L Oxygen Delivery Method Nasal Cannula Oxygen Flow Rate 1 03/11/22 20:45 03/11/22 21:00 03/11/22 21:00 Pulse Rate 80 79 Respiratory Rate 30 H Blood Pressure 119/71 Pulse Oximetry 95 95 Oxygen Delivery Method Oxygen Flow Rate 03/11/22 21:30 03/11/22 21:30 Pulse Rate 79 Respiratory Rate 21 Blood Pressure 122/74 Pulse Oximetry 99 Oxygen Delivery Method Oxygen Flow Rate MDM - SOB/Dyspnea Differential Diagnosis Differential diagnosis: Likely acute exacerbation of chronic obstructive airways disease, congestive heart failure, community acquired pneumonia and other (TIA /angina/cp/viral syndrome) Lab Data Result diagrams: 03/11/22 18:35 03/11/22 18:35 Labs: Lab Results 03/11/22 03/11/22 03/11/22 Range/Units 18:35 18:35 18:35 WBC 8.5 (4.5-11.0) X10^3/uL RBC 5.12 (4.5-5.9) X10^6/uL Hgb 16.1 (13.5-17.5) g/dL Hct 47.7 (41-53) % MCV 93.0 (80-100) fL MCH 31.5 (26-34) PG MCHC 33.8 (30-36) % RDW 13.1 (11.6-14.8) % Plt Count 346 (150-400) X10^3/uL Neut % (Auto) 53.9 (50-75) % Lymph % (Auto) 26.8 (25-40) % [place] % (Auto) 12.7 (3-14) % Eos % (Auto) 6.3 H (2-4) % Baso % (Auto) 0.3 (0-2) % Neut # (Auto) 4600 (6248-3836) /uL Lymph # (Auto) 2300 (9153-8051) /uL [place] # (Auto) 1100 H (0-900) /uL Eos # (Auto) 500 H (0-450) /uL Baso # (Auto) 0 (0-100) /uL PT 11.4 (10.1-12.7) SECONDS INR 1.0 (0.9-1.3) APTT 32 (26-36) SECONDS Sodium 136 L (137-145) mmol/L Potassium 4.6 (3.4-5.1) mmol/L Chloride 100 (98-107) mmol/L Carbon Dioxide 31 (22-32) mmol/L BUN 9 (9-20) mg/dL Creatinine 0.56 L (0.66-1.25) mg/dL Estimated GFR > 60 (>60) mL/min BUN/Creatinine Ratio 16.1 (6-22) Glucose 96 (80-110) mg/dL Calcium 8.6 (8.4-10.2) mg/dL Magnesium 2.0 (1.6-2.3) mg/dL Total Bilirubin 0.4 (0.2-1.3) mg/dL AST 34 (17-59) IU/L ALT 16 (<50) IU/L Alkaline Phosphatase 78 (38-126) U/L Total Creatine Kinase 56 (55-170) U/L CK-MB (CK-2) TNP CK-MB (CK-2) Rel Index TNP Troponin I < 0.012 (0.01-0.034) ng/mL NT-Pro-B Natriuret Pep (<125) pg/mL Total Protein 7.5 (6.3-8.2) g/dL Albumin 4.0 (3.5-5.0) g/dL Globulin 3.5 (1.7-4.1) g/dL Albumin/Globulin Ratio 1.1 (1.0-2.8) Lipase 64 (23-300) U/L SARS-CoV-2 (PCR) (Negative) Influenza A (RT-PCR) (NEGATIVE) Influenza B (RT-PCR) (NEGATIVE) RSV (PCR) (Negative) 1203/12/22 03/12/22 Range/Units 18:35 01:21 01:21 WBC (4.5-11.0) X10^3/uL RBC (4.5-5.9) X10^6/uL Hgb (13.5-17.5) g/dL Hct (41-53) % MCV (80-100) fL MCH (26-34) PG MCHC (30-36) % RDW (11.6-14.8) % Plt Count (150-400) X10^3/uL Neut % (Auto) (50-75) % Lymph % (Auto) (25-40) % [place] % (Auto) (3-14) % Eos % (Auto) (2-4) % Baso % (Auto) (0-2) % Neut # (Auto) (9925-4326) /uL Lymph # (Auto) (4294-4043) /uL [place] # (Auto) (0-900) /uL Eos # (Auto) (0-450) /uL Baso # (Auto) (0-100) /uL PT (10.1-12.7) SECONDS INR (0.9-1.3) APTT (26-36) SECONDS Sodium (137-145) mmol/L Potassium (3.4-5.1) mmol/L Chloride (98-107) mmol/L Carbon Dioxide (22-32) mmol/L BUN (9-20) mg/dL Creatinine (0.66-1.25) mg/dL Estimated GFR (>60) mL/min BUN/Creatinine Ratio (6-22) Glucose (80-110) mg/dL Calcium (8.4-10.2) mg/dL Magnesium (1.6-2.3) mg/dL Total Bilirubin (0.2-1.3) mg/dL AST (17-59) IU/L ALT (<50) IU/L Alkaline Phosphatase (38-126) U/L Total Creatine Kinase 40 L (55-170) U/L CK-MB (CK-2) TNP CK-MB (CK-2) Rel Index TNP Troponin I < 0.012 (0.01-0.034) ng/mL NT-Pro-B Natriuret Pep 361 H (<125) pg/mL Total Protein (6.3-8.2) g/dL Albumin (3.5-5.0) g/dL Globulin (1.7-4.1) g/dL Albumin/Globulin Ratio (1.0-2.8) Lipase (23-300) U/L SARS-CoV-2 (PCR) Negative (Negative) Influenza A (RT-PCR) Flu a negative (NEGATIVE) Influenza B (RT-PCR) Flu b negative (NEGATIVE) RSV (PCR) Negative (Negative) Imaging Data Chest x-ray: Radiologist's Impression: [address] [address] XRay Report Signed Patient: Fabiano Rivera MR#: [id number] : 1950 Acct:[id number] Age/Sex: 71 / M Date of Service: 03/11/22 Loc: ED Accession Number: [id number] ?? Procedure: XR chest 1V Ordering Provider: Mary Grace George D.O. PROCEDURE:? XR CHEST 1V ? INDICATIONS:? chest pain ? TECHNIQUE:? One view of the chest was acquired.? ? COMPARISON:? [facility], CR, XR CHEST 1V, 04/17/2021, 14:55.? [facility], CR, XR CHEST 1V, 09/06/2020, 12:27. ? FINDINGS:? ? Surgical changes and devices:? None.? ? Lungs and pleura:? No dense consolidation.? Prominence of the interstitium is present.? Possible small pleural effusions versus thickening. ? Mediastinum:? Mediastinal contours appear normal.? Heart size is normal.? ? Bones and chest wall:? No suspicious bony lesions.? Overlying soft tissues appear unremarkable.? ? IMPRESSION:? Mildly prominent interstitium could represent atypical infection versus edema.? There may also be trace effusions versus thickening.? Consider future imaging surveillance to assess for resolution. ? ? ? Dictated by: Valdez Anguiano M.D. on 03/11/2022 at 19:10 ? ? Approved by: Valdez Anguiano M.D. on 03/11/2022 at 19:11 ? CTA - brain/neck: Radiologist's Impression: [address] [address] [address] Scan Report Signed Patient: Fabiano Rivera MR#: [id number] : 1950 Acct:[id number] Age/Sex: 71 / M Date of Service: 03/11/22 Loc: ED Accession Number: [id number] ?? Procedure: CT angio head and neck Ordering Provider: Kendall Estrada MD PROCEDURE:? CT ANGIO HEAD AND NECK ? INDICATIONS:? dizziness ? TECHNIQUE:? Pre-contrast 4.5 mm thick sections acquired from the foramen magnum to the vertex.? After the administration of intravenous contrast, 1 mm thick sections acquired from the aortic arch through the [place] of [place].? Post-contrast 4.5 mm thick sections then re-acquired from the foramen magnum to the vertex.? 3-dimensional dfocagq-yxoezfshz-ohdxqewbqg (MIP) and/or volume rendering reformats were acquired of the central intracranial vasculature and neck separately. For radiation dose reduction, the following was used:? automated exposure control, adjustment of mA and/or kV according to patient size.? ? COMPARISON:? None. ? FINDINGS:? Image quality:? There is motion artifact limiting evaluation.? ? BRAIN:? CSF spaces:? Basal cisterns are patent.? No extra-axial fluid collections.? Ventricles are normal in size and shape.? ? Brain:? No intracranial hemorrhage, mass, or mass effect.? Wiley-white matter interface appears preserved.? No abnormal intracranial enhancement.? ? Skull and face:? Calvarium and facial bones appear intact, without suspicious lesions.? Orbits appear normal.? ? Sinuses:? There is mild mucosal thickening within the ethmoid, maxillary, and sphenoid sinuses.? Mastoid air cells are clear. ? HEAD CT ANGIOGRAPHY:? Anterior circulation:? Intracranial internal carotid arteries are normal in size and appear patent bilaterally.? There is bilateral atherosclerotic calcification along the cavernous segments of the internal carotid arteries with associated multifocal moderate narrowing.? The paired anterior cerebral arteries appear patent bilaterally.? The anterior communicating artery also appears patent. The middle cerebral arteries appear patent bilaterally.? No high-grade stenosis, occlusion, or filling defects.? No cerebral aneurysms identified. ? Posterior circulation:? There is a right dominant vertebrobasilar system with a diminutive left vertebral artery.? Visualized portions of the vertebral arteries demonstrate calcifications within the distal segments of the vertebral arteries with associated moderate to severe short segment narrowing.? These join to form a patent appearing basilar artery.? The posterior cerebral arteries appears patent bilaterally.? No high-grade stenosis, occlusion, or filling defects.? No cerebral aneurysms identified. ? NECK CT ANGIOGRAPHY:? Carotid system:? The great vessels demonstrate a conventional anatomy as they arise from the aortic arch.? There is extensive calcification with severe narrowing in the proximal left subclavian artery.? The origins of the common carotid arteries appear patent.? The common carotid arteries demonstrate extensive calcifications with multifocal mild narrowing on the right and qqdb-jt-gsyuovlu narrowing on the left.? Extensive vascular calcifications are demonstrated at the carotid bifurcations and in the carotid bulbs.? Marked calcified plaque is demonstrated within the carotid bulbs with narrowing of approximately 60-70%. ? Posterior circulation:? There is a right dominant vertebrobasilar system with a diminutive left vertebral artery.? There is extensive vascular calcification along the course of the vertebral arteries bilaterally with multiple segments of severe narrowing in the left vertebral artery along its course.? There are also calcifications within the proximal right vertebral artery with suspected short segments of severe narrowing proximally. ? Soft tissues:? Visualized neck soft tissues demonstrate no suspicious abnormalities.? ? Bones:? No suspicious bony lesions.? Visualized cervical spine demonstrates straightening of the cervical lordosis.? There is multilevel degenerative disc disease and facet joint arthropathy.? ? IMPRESSION:? ? 1. No acute intracranial abnormality. ? 2. No high-grade stenosis or occlusion of the tokewu-zi-Vhzgry arteries. ? 3. Right dominant vertebrobasilar system with a diminutive left vertebral artery.? Multifocal segments of severe narrowing are demonstrated along the course of the left vertebral artery.? Short segments of severe narrowing also demonstrated in the proximal right vertebral artery. ? 4. Extensive calcified plaque in the carotid bulbs with narrowing of approximately 60-70%.? ? 5. Multifocal moderate narrowing also demonstrated within the cavernous segments of? internal carotid arteries bilaterally. ? Any quantitative measurements of stenosis were performed using NASCET criteria.? ? ? Dictated by: Diego Lazo M.D. on 03/11/2022 at 22:25 ? ? Approved by: Diego Lazo M.D. on 03/11/2022 at 22:41 ? ECG Data Interpretation: Normal sinus rhythm rate [address] elevation or depression MDM Narrative Medical decision making narrative: Appropriate for discharge home. I did review with neurology/stroke. At this time likely not vascular event. Patient may have got slightly hypotensive cause his dizziness and blurry vision but this was very brief less than 1 minute. Right-sided chest discomfort likely related to his COPD. Patient symptoms resolved with breathing treatment here. Feeling much better. Return precautions reviewed with him. He does desire discharge home. He does have a family doctor to follow up with. Addendum, at time of discharge, ambulate patient hallway and 84% room air dyspneic. Patient placed back in room and on nasal cannula again and feeling much better. He does agree now for admission and not discharge home. Discharge Plan Departure Patient Disposition: Admitted as Observation Clinical Impression: Acute exacerbation of chronic obstructive pulmonary disease Admit Date/Time: 03/12/22 03:44 Admit Provider: David Coffman
[2022-03-11] MEDS: ALBUTEROL/IPRATROPIUM 3 ML AMPUL INH (21:24)
--- NOTE | 2022-03-11 21:25 | DI.CT.S_ITS ---
PROCEDURE: CT ANGIO HEAD AND NECK INDICATIONS: dizziness TECHNIQUE: Pre-contrast 4.5 mm thick sections acquired from the foramen magnum to the vertex. After the administration of intravenous contrast, 1 mm thick sections acquired from the aortic arch through the [place] of [place]. Post-contrast 4.5 mm thick sections then re-acquired from the foramen magnum to the vertex. 3-dimensional ksjoyyr-wjgodewfu-ptnelrzdgq (MIP) and/or volume rendering reformats were acquired of the central intracranial vasculature and neck separately. For radiation dose reduction, the following was used: automated exposure control, adjustment of mA and/or kV according to patient size. COMPARISON: None. FINDINGS: Image quality: There is motion artifact limiting evaluation. BRAIN: CSF spaces: Basal cisterns are patent. No extra-axial fluid collections. Ventricles are normal in size and shape. Brain: No intracranial hemorrhage, mass, or mass effect. Wiley-white matter interface appears preserved. No abnormal intracranial enhancement. Skull and face: Calvarium and facial bones appear intact, without suspicious lesions. Orbits appear normal. Sinuses: There is mild mucosal thickening within the ethmoid, maxillary, and sphenoid sinuses. Mastoid air cells are clear. HEAD CT ANGIOGRAPHY: Anterior circulation: Intracranial internal carotid arteries are normal in size and appear patent bilaterally. There is bilateral atherosclerotic calcification along the cavernous segments of the internal carotid arteries with associated multifocal moderate narrowing. The paired anterior cerebral arteries appear patent bilaterally. The anterior communicating artery also appears patent. The middle cerebral arteries appear patent bilaterally. No high-grade stenosis, occlusion, or filling defects. No cerebral aneurysms identified. Posterior circulation: There is a right dominant vertebrobasilar system with a diminutive left vertebral artery. Visualized portions of the vertebral arteries demonstrate calcifications within the distal segments of the vertebral arteries with associated moderate to severe short segment narrowing. These join to form a patent appearing basilar artery. The posterior cerebral arteries appears patent bilaterally. No high-grade stenosis, occlusion, or filling defects. No cerebral aneurysms identified. NECK CT ANGIOGRAPHY: Carotid system: The great vessels demonstrate a conventional anatomy as they arise from the aortic arch. There is extensive calcification with severe narrowing in the proximal left subclavian artery. The origins of the common carotid arteries appear patent. The common carotid arteries demonstrate extensive calcifications with multifocal mild narrowing on the right and xkko-ws-dwwfxmcf narrowing on the left. Extensive vascular calcifications are demonstrated at the carotid bifurcations and in the carotid bulbs. Marked calcified plaque is demonstrated within the carotid bulbs with narrowing of approximately 60-70%. Posterior circulation: There is a right dominant vertebrobasilar system with a diminutive left vertebral artery. There is extensive vascular calcification along the course of the vertebral arteries bilaterally with multiple segments of severe narrowing in the left vertebral artery along its course. There are also calcifications within the proximal right vertebral artery with suspected short segments of severe narrowing proximally. Soft tissues: Visualized neck soft tissues demonstrate no suspicious abnormalities. Bones: No suspicious bony lesions. Visualized cervical spine demonstrates straightening of the cervical lordosis. There is multilevel degenerative disc disease and facet joint arthropathy. IMPRESSION: 1. No acute intracranial abnormality. 2. No high-grade stenosis or occlusion of the zlxqgi-ag-Esjuze arteries. 3. Right dominant vertebrobasilar system with a diminutive left vertebral artery. Multifocal segments of severe narrowing are demonstrated along the course of the left vertebral artery. Short segments of severe narrowing also demonstrated in the proximal right vertebral artery. 4. Extensive calcified plaque in the carotid bulbs with narrowing of approximately 60-70%. 5. Multifocal moderate narrowing also demonstrated within the cavernous segments of internal carotid arteries bilaterally. Any quantitative measurements of stenosis were performed using NASCET criteria. Dictated by: Diego Lazo M.D. on 03/11/2022 at 22:25 Approved by: Diego Lazo M.D. on 03/11/2022 at 22:41
[2022-03-11 21:30] VITALS: BP 122/74; PULSE 79; RESP 21; O2SAT 99
[2022-03-11] MEDS: SODIUM CHLORIDE 0.9% 500 ML 1000 ML IV (21:37)
[2022-03-11] MEDS: BENZONATATE 100 MG CAPSULE PO (23:42)
[2022-03-12] VITALS (38 sets, daily range): BP systolic 74–126; BP diastolic 46–78; PULSE 92–110; RESP 20–32; TEMP 36.9; O2SAT 85–99
[2022-03-12 01:48] LABS: Creatine Kinase 40 U/L (55-170)
[2022-03-12 01:58] LABS: NT-proBNP (BNP-Adult 18+) 361 pg/mL (<125)
--- NOTE | 2022-03-12 02:00 | PC.NURSE ---
Report received - assumed care of pt at this time
[2022-03-12 02:01] LABS: Troponin I < 0.012 ng/mL (0.01-0.034)
--- NOTE | 2022-03-12 02:30 | PC.NURSE ---
In to DC pt home at this time - O2 sats noted to be 88-89% - Not on O2 at this time - MD aware and trial ambulation of pt on RA performed - O2 sat decreased to 84% with short walk - difficulty recovering - sats remain at 88% - assisted to bed and placed on 2L NC of O2 - sats increase to 97% when sitting still and lying on stretcher calm - wet sounding cough noted - MD aware and DC held
--- NOTE | 2022-03-12 03:00 | PC.NURSE ---
at bedside - pt to be admitted
[2022-03-12] MEDS: ALBUTEROL/IPRATROPIUM 3 ML AMPUL INH ×2 (03:44→11:13)
--- NOTE | 2022-03-12 03:46 | P.HP_ITS ---
History of Present Illness History of Present Illness Date Patient Seen: 03/12/22 Time Patient Seen: 03:30 Chief complaint: Dizziness, Blurred vision, Chills, Shaking Narrative: Mr. Rivera is a 70M with PMH COPD, smoker, who presents to the hospital with dizziness, blurry vision, cough, shortness of breath. He lives on one of the [facility]. He has no electricity where he lives. He has a generator which he uses sometimes which he can use oxygen for intermittently. HE actually cmae in initially feeling dizzy and lightheaded primarily. This resolved quickly. He was also short of breath, with cough and chest tightness. He is spitting up greenish sputum. He did not use inhaler today. In the ED workup was done, vitals notable for afebrile, tachypneic, O2 sats did drop to the 80s. Discharge was attempted and he ambulated around the ED department and dropped to 84% on room air. He was placed on oxygen and felt improved. Labs notable for wbc 8.5, hgb 16.1, plts 346. Creatinine 0.56. Trop negative x2. BNP 361. Nebs and steroids ordered and he was admitted for further treatment. Family history: denies any pulmonary disease in family Patient History Medical History Acute bronchitis Alcohol dependence Atypical ductal hyperplasia of right breast Chronic cough (2017) Depression End stage COPD Fractures (Unknown) Incidental lung nodule, > 3mm and < 8mm Partial blindness (Unknown) Schizophrenia (Unknown) Substance abuse (Unknown) Tobacco use Surgical History History of open reduction and internal fixation (ORIF) procedure (Unknown) Hx of hernia repair Family & Social History Social History: household members none Safety & Behavioral: Feels Safe in Current Yes Environment Been Physically Hurt or No Threatened By a Person Tobacco & Substance use: Tobacco type cigarettes Smoking Status Current every day smoker alcohol intake current alcohol intake frequency 3 or more drinks per day Substance Use Type marijuana Meds Home Medications and Allergies Home Medications Medication Instructions Recorded Confirmed Type Nasal Canula/Tubing #1 ea 04/30/21 04/30/21 Rx O2 Concentrator #1 ea 04/30/21 04/30/21 Rx albuterol sulfate 90 mcg/actuation 2 puff inhalation QID PRN 03/11/22 Rx aerosol inhaler (ProAir HFA) shortness of breath or wheezing #8.5 grams aspirin 81 mg tablet,delayed 81 mg PO DAILY #30 tabs 03/11/22 Rx release atorvastatin 80 mg tablet 80 mg PO DAILY #30 tabs 03/11/22 Rx ipratropium 20 mcg-albuterol 100 1 puff inhalation Q4H #4 grams 03/11/22 Rx mcg/actuation mist for inhalation (Combivent Respimat) Allergies Allergy/AdvReac Type Severity Reaction Status Date / Time No Known Drug Allergies Allergy Verified 03/11/22 18:41 Review of Systems Review of Systems Narrative: 14 systems reviewed and negative aside from what is noted in HPI Exam Vital Signs (past 8 hours): - 03/11/22 20:33 03/11/22 20:33 03/11/22 20:45 Pulse Rate 88 Respiratory Rate Blood Pressure 125/85 119/71 Pulse Oximetry 88 L Oxygen Delivery Method Nasal Cannula Oxygen Flow Rate 1 03/11/22 20:45 03/11/22 21:00 03/11/22 21:00 Pulse Rate 80 79 Respiratory Rate 30 H Blood Pressure 119/71 Pulse Oximetry 95 95 Oxygen Delivery Method Oxygen Flow Rate 03/11/22 21:30 03/11/22 21:30 Pulse Rate 79 Respiratory Rate 21 Blood Pressure 122/74 Pulse Oximetry 99 Oxygen Delivery Method Oxygen Flow Rate Oxygen Delivery Method Nasal Cannula Oxygen Flow Rate 1 Narrative Exam Narrative: GEN: mild respiratory distress HEENT: moist mucous membranes, PERRL NECK: trachea midline, no JVD PULM: coarse breath sounds, poor air movement CV: regular rate and rhythm, no murmurs ABD: soft, nontender, nondistended, no organomegaly EXT: warm and well perfused with no edema NEURO: awake, alert, oriented, no focal deficits Objective Labs Result Diagrams: 03/11/22 18:35 03/11/22 18:35 Labs: Laboratory Results - last 24 hr 03/11/22 03/11/22 03/11/22 18:35 18:35 18:35 WBC 8.5 RBC 5.12 Hgb 16.1 Hct 47.7 MCV 93.0 MCH 31.5 MCHC 33.8 RDW 13.1 Plt Count 346 Neut % (Auto) 53.9 Lymph % (Auto) 26.8 [place] % (Auto) 12.7 Eos % (Auto) 6.3 H Baso % (Auto) 0.3 Neut # (Auto) 4600 Lymph # (Auto) 2300 [place] # (Auto) 1100 H Eos # (Auto) 500 H Baso # (Auto) 0 PT 11.4 INR 1.0 APTT 32 Sodium 136 L Potassium 4.6 Chloride 100 Carbon Dioxide 31 BUN 9 Creatinine 0.56 L Estimated GFR > 60 BUN/Creatinine Ratio 16.1 Glucose 96 Calcium 8.6 Magnesium 2.0 Total Bilirubin 0.4 AST 34 ALT 16 Alkaline Phosphatase 78 Total Creatine Kinase 56 CK-MB (CK-2) TNP CK-MB (CK-2) Rel Index TNP Troponin I < 0.012 NT-Pro-B Natriuret Pep Total Protein 7.5 Albumin 4.0 Globulin 3.5 Albumin/Globulin Ratio 1.1 Lipase 64 SARS-CoV-2 (PCR) Influenza A (RT-PCR) Influenza B (RT-PCR) RSV (PCR) 03/11/22 03/12/22 03/12/22 18:35 01:21 01:21 WBC RBC Hgb Hct MCV MCH MCHC RDW Plt Count Neut % (Auto) Lymph % (Auto) [place] % (Auto) Eos % (Auto) Baso % (Auto) Neut # (Auto) Lymph # (Auto) [place] # (Auto) Eos # (Auto) Baso # (Auto) PT INR APTT Sodium Potassium Chloride Carbon Dioxide BUN Creatinine Estimated GFR BUN/Creatinine Ratio Glucose Calcium Magnesium Total Bilirubin AST ALT Alkaline Phosphatase Total Creatine Kinase 40 L CK-MB (CK-2) TNP CK-MB (CK-2) Rel Index TNP Troponin I < 0.012 NT-Pro-B Natriuret Pep 361 H Total Protein Albumin Globulin Albumin/Globulin Ratio Lipase SARS-CoV-2 (PCR) Negative Influenza A (RT-PCR) Flu a negative Influenza B (RT-PCR) Flu b negative RSV (PCR) Negative Assessment & Plan Assessment & Plan narrative: 1. Acute on chronic copd exacerbation with hypoxemic respiratory failure -patient with productive cough, hypoxic to the 80s, coarse breath sounds -etiology most likely copd exacerbation -started nebs, steroids, and azithromycin -xray notable for possible fluid overload -no known history of CHF -heart healthy diet -ordered lasix -ordered ECHO for further evaluation 2. Active smoker -nicotine patch 3. EtOH abuse -encouraged cessation -not currently withdrawing -CIWA precautions -MVI, thiamine, folate -ativan prn for withdrawal 4. Spiculated lung nodule -known to patient has not followed up as outpatient 5. Dizzines and blurry vision -transient and now resolved -suspect vasovagal or secondary to hypoxemia 6. Carotid artery stenosis -noted to have vertebral artery plaque -stay on aspirin/statin -may be referred to vascular if he is interesting in intervention CODE: DNR/DNI Proxy: Jose Alfaro, friend I have utilized all available resources to reconcile the patient's home medications Time Spent With Patient Critical Care time: I spent a total of [] minutes of critical care time on this patient's care today; this time is exclusive of procedural time.
--- NOTE | 2022-03-12 03:57 | DI.ECHO.S_ITS ---
[facility]---------+ [facility] +---------+ : : [address] : : : : [id number] : : : : Phone: [phone] Echocardiogram Report + + :Name: BISHOP PEÑA Study Date: 03/12/2022 Height: 68 in : :[facility] ReadingLocation: Weight: 130 lb : : Gender: Male BSA: 1.7 m2 : :: 1950 Age: 71 yrs BP: 119/71 mmHg: :Reason For Study: CONGESTIVE HEART FAILURE : :Ordering Physician: JACOBY, : :MEKA Performed By: Karla Che : :Referring: MEKA DOZIER : + + Interpretation Summary 1) Normal left ventricular thickness, size, wall motion, and systolic function (EF 55-60%). 2) Normal right ventricular size and function. 3) No significant valvular abnormalities. 4) No prior Echo available for comparison. Procedure: A two-dimensional transthoracic echocardiogram with color flow and Doppler was performed. The study quality was technically difficult. There is no prior echocardiogram noted for this patient. A contrast injection of Definity was performed to improve assessment of LV function. The patient was in sinus rhythm with heart rates between 70-79 bpm during the exam. Left Ventricle: The left ventricle is normal in size and wall thickness. The ejection fraction is estimated to be 55-60%. Left ventricular systolic function appears normal without focal wall motion abnormalities. Right Ventricle: The right ventricle is normal in size and function. Atria: The left atrium grossly appears normal in size. Right atrial size is normal. There is no Doppler evidence for an interatrial shunt. Mitral Valve: The mitral valve is normal in structure and function. There is mild mitral regurgitation. Aortic Valve: The aortic valve is grossly normal. The aortic valve opens well. There is no aortic valve stenosis. There is trace aortic regurgitation. Tricuspid Valve: The tricuspid valve is not well visualized, but is grossly normal. There is trace tricuspid regurgitation. Pulmonic Valve: The pulmonic valve is not well visualized. Great Vessels: The aortic root is normal size. The ascending aorta could not be visualized. The IVC is of normal diameter and collapses greater than 50% with a sniff. This suggests a low right atrial pressure of 3 mm Hg. Pericardium/ Pleura There is no pericardial effusion. There is no pleural effusion. MMode/2D Measurements & Calculations LVIDd: 3.9 cm LVOT diam: 2.3 cm LVIDs: 2.8 cm Ao root diam: 3.0 cm FS: 28.0 % IVSd: 0.64 cm LVPWd: 0.83 cm LV sandoval. diameter/BSA (cm/m^2): 2.3 LV sys. diameter/BSA (cm/m^2): 1.7 LA dimension: 2.9 cm RA long axis: 4.3 cm LA A4 area: 12.7 cm2 RA area: 12.9 cm2 LA length (vol): 4.3 cm RA vol: 33.1 ml RA : 19.5 ml/m2 IVC diam: 1.4 cm RVD1 (basal): 3.4 cm RVD2 (mid): 2.8 cm TAPSE: 1.8 cm Doppler Measurements & Calculations Ao V2 max: 121.6 cm/sec LVOT Max Michael: 75.5 cm/sec Ao V2 mean: 89.3 cm/sec LV V1 max P.3 mmHg Ao max P.9 mmHg LV V1 VTI: 16.8 cm Ao mean P.5 mmHg EMELY(I,D): 2.5 cm2 Ao V2 VTI: 28.9 cm EMELY(V,D): 2.6 cm2 sev ratio: 0.58 EMELY indexed to BSA (cm^2/m^2): 1.4 MV E max michael: 76.9 cm/sec TR max michael: 269.5 cm/sec MV A max michael: 65.7 cm/sec TR max P.1 mmHg MV E/A: 1.2 Med Peak E' Michael: 6.6 cm/sec E/E' med: 11.7 Lat Peak E' Michael: 9.8 cm/sec E/E' lat: 7.9 E/e' average: 9.8 MV dec time: 0.26 sec SV(LVOT): 71.2 ml Reading Physician:08:51 AM
--- NOTE | 2022-03-12 04:00 | PC.NURSE ---
Resting quietly in NAD - no needs voiced - PWD with respirations equal and unlabored bilaterally - O2 sats remain in the 90's on 2L of O2 via NC with resting
--- NOTE | 2022-03-12 05:00 | PC.NURSE ---
No changes in pt status at this time
[2022-03-12] MEDS: methylPREDNISolone 125 MG/2 ML VIAL IV (05:38)
--- NOTE | 2022-03-12 06:20 | PC.NURSE ---
ECHO performed at bedside at this time
--- NOTE | 2022-03-12 07:59 | PC.NURSE ---
Report received at this time - assumed care of pt
--- NOTE | 2022-03-12 08:00 | PC.NURSE ---
report given to dayshift RN team - care relinquished
[2022-03-12] MEDS: AZITHROMYCIN 500 MG in DEXTROSE 5% IN WATER 250 ML 250 MG IV (09:26)
[2022-03-12] MEDS: FUROSEMIDE 20 MG/2 ML VIAL IV (09:36)
[2022-03-12] MEDS: THIAMINE 100 MG TABLET PO (09:47)
[2022-03-12] MEDS: SODIUM CHLORIDE 0.9% 500 ML IV (11:09)
[2022-03-12 11:32] LABS: Add Manual Diff / Slide Review NO; Basophils Absolute Auto 0 /uL (0-100); Basophils Percent Auto 0.4 % (0-2); Eosinophils Absolute Auto 0 /uL (0-450); Eosinophils Percent Auto 0.1 % (2-4); Hematocrit 45.6 % (41-53); Hemoglobin 15.2 g/dL (13.5-17.5); Lymphocytes Absolute Auto 500 /uL (1100-4500); Lymphocytes Percent Auto 8.3 % (25-40); Mean Corpuscular HGB Conc 33.4 % (30-36); Mean Corpuscular Hemoglobin 31.3 PG (26-34); Mean Corpuscular Volume 93.7 fL (80-100); Monocytes Absolute Auto 0 /uL (0-900); Monocytes Percent Auto 0.8 % (3-14); Neutrophils Absolute Auto 5500 /uL (1500-7000); Neutrophils Percent Auto 90.4 % (50-75); Platelet Count 301 X10^3/uL (150-400); Red Blood Cell Count 4.87 X10^6/uL (4.5-5.9); Red Cell Distribution Width 13.3 % (11.6-14.8); White Blood Cell Count 6.1 X10^3/uL (4.5-11.0)
[2022-03-12 11:48] LABS: Blood Urea Nitrogen 8 mg/dL (9-20); Calcium 8.3 mg/dL (8.4-10.2); Carbon Dioxide 25 mmol/L (22-32); Chloride 100 mmol/L (98-107); Estimated Glomerular Filt Rate > 60 mL/min (>60); Glucose 291 mg/dL (80-110); HEMOLYSIS < 15 (0-50); Potassium 3.9 mmol/L (3.4-5.1); Sodium 136 mmol/L (137-145)
[2022-03-12] MEDS: ALBUTEROL 2.5 MG/3 ML NEB (ADULT) INH (12:15)
--- NOTE | 2022-03-12 12:52 | PC.NURSE ---
1100 Patient noted to be hypotensive with BP in the 80's systolic and states he feels dizzy. Heart rate 105bpm. It is noted that they gave him lasix last night (20mg IV) and a 500ml bolus of saline. He has a urinal filled with 900cc of urine. I spoke with The hospitalist about the patient potentially being dehydrated and got a verbal order for 500ml NS. 1200 Patient remains hypotensive with BP in the 70's systolic. Hospitalist at bedside. BP cuff switched to other arm as patient reports it is always low on this arm. BP is 111 systolic on right arm instead.
== END 2022-03-12 15:18 | disposition home or self-care (01) ==
LOC: ED 03-12 03:39 → AC 03-12 03:44
PROVIDERS: Emergency Medicine; Admitting Provider Internal Medicine; Emergency Provider Emergency Medicine; PCP Family Medicine; Visit Provider Internal Medicine
DX: J96.21 Acute and chronic respiratory failure with hypoxia (principal); J44.1 Chronic obstructive pulmonary disease with (acute) exacerbation; R42 Dizziness and giddiness; R07.89 Other chest pain; H53.8 Other visual disturbances; F17.210 Nicotine dependence, cigarettes, uncomplicated; Z20.822 Contact with and (suspected) exposure to COVID-19; I65.29 Occlusion and stenosis of unspecified carotid artery; R91.1 Solitary pulmonary nodule; F10.10 Alcohol abuse, uncomplicated
CPT/HCPCS: 0241U; 36415; 70496; 70498; 71045; 80048; 80053; 82550; 83690; 83735; 83880; 84484; 85025; 85610; 85730; 93005; 93010; 94618; 94640; 96365; 96375; 99284; 99285; G0378; C8929; J1650; J1940; J2405; J2930; J7613; Q9957; Q9967

== ENCOUNTER 2022-07-11 16:54 | Inpatient (IN) | payer MEDICARE, MEDICAID, SELFPAY ==
[2021-04-17 18:59] VITALS: BMI 20.3
[2022-07-11] VITALS (12 sets, daily range): BP systolic 92–162; BP diastolic 53–95; PULSE 96–108; RESP 20–34; TEMP 36.7–37.4; O2SAT 88–98; BMI 20.3; BMI 20.5
--- NOTE | 2022-07-11 17:11 | ED.SOB ---
HPI - SOB/Dyspnea General Chief Complaint: Shortness of Breath/Dyspnea Stated Complaint: Weakness Time Seen by Provider: 07/11/22 16:56 Source: patient and EMS Mode of arrival: EMS History of Present Illness HPI Narrative: 72-year-old male smoker, daily drinker with history of hypertension hyperlipidemia presents by EMS for evaluation of increased shortness of breath, work of breathing and feeling under the weather for the past 2-3 days. He has had subjective fever and chills with a harsh cough. On arrival EMS found his work of breathing to be significant, they started a breathing treatment which provided some relief in route, initial sats in the low 80s. He denies recent travel or exposure to other ill persons. He is had no nausea, vomiting or diarrhea. He denies any dysuria, frequency or urgency Related Data Previous Rx's Medication Instructions Recorded Nasal Canula/Tubing #1 ea 04/30/21 O2 Concentrator #1 ea 04/30/21 albuterol sulfate 90 mcg/actuation 2 puff inhalation QID PRN 03/11/22 aerosol inhaler (ProAir HFA) shortness of breath or wheezing #8.5 grams aspirin 81 mg tablet,delayed 81 mg PO DAILY #30 tabs 03/11/22 release atorvastatin 80 mg tablet 80 mg PO DAILY #30 tabs 03/11/22 ipratropium 20 mcg-albuterol 100 1 puff inhalation Q4H #4 grams 07/08/22 mcg/actuation mist for inhalation (Combivent Respimat) Allergies Allergy/AdvReac Type Severity Reaction Status Date / Time No Known Drug Allergies Allergy Verified 07/11/22 17:02 Review of Systems Review of Systems Narrative: GENERAL: See HPI HEENT: See HPI RESPIRATORY: See HPI CARDIOVASCULAR: Denies chest pain, palpitations, orthopnea, edema, GASTROINTESTINAL: Denies nausea, vomiting, abdominal pain, diarrhea, constipation, melena. : Denies dysuria, frequency, incontinence, hematuria, urinary retention. MUSCULOSKELETAL: denies weakness, joint pain, or bony pain SKIN: Denies rash, skin lesions, or other NEUROLOGIC: Denies weakness, headache, numbness, change in speech, confusion, seizures, incoordination. PSYCHIATRIC: No concerning psychosocial issues. 12 point review of systems is negative except for those stated above Patient History Medical History Acute bronchitis Alcohol dependence Atypical ductal hyperplasia of right breast Chronic cough (2017) Depression End stage COPD Fractures (Unknown) Incidental lung nodule, > 3mm and < 8mm Partial blindness (Unknown) Schizophrenia (Unknown) Substance abuse (Unknown) Tobacco use Surgical History History of open reduction and internal fixation (ORIF) procedure (Unknown) Hx of hernia repair Social History household members: none Smoking Status: Current every day smoker Tobacco: How many years used: 45 quit status: considering quitting second hand exposure: Yes alcohol intake: current substance use type: does not use Smoking Status: Current every day smoker alcohol intake frequency: 3 or more drinks per day Alcohol type: beer Substance Use Type: marijuana Exam Narrative Exam Narrative: GENERAL: [72] year old patient appears stated age. Well-developed patient, in moderate distress with increased work of breathing HEAD: Atraumatic. Normocephalic. EYES: Pupils equal round and reactive. Extraocular motions intact. No scleral icterus. No injection or drainage. ENT: Dry mucous membrane Nose without bleeding, purulent drainage. Throat without erythema, tonsillar hypertrophy or exudate. Airway patent. NECK: Trachea midline. Non tender CARDIOVASCULAR: Tachycardic but regular without murmurs, gallops, or rubs. RESPIRATORY: Decreased breath sounds throughout with prolonged expiratory phase and faint crackles in bilateral bases. Increased work of breathing with use of accessory muscles, tachypnea and hypoxemia. Satting in the low 80s on room air GASTROINTESTINAL: Abdomen soft, non-tender, nondistended. EXTREMITIES: No edema or joint tenderness. BACK: Nontender without deformity or crepitance. No flank tenderness. NEURO: AOx3. SKIN: No rash or erythema of visible areas Initial Vital Signs Initial Vital Signs: Vital Signs Temperature 99.4 F 07/11/22 16:56 Pulse Rate 96 H 07/11/22 16:56 Respiratory Rate 24 07/11/22 16:56 Blood Pressure 162/95 H 07/11/22 16:56 Pulse Oximetry 96 07/11/22 16:56 Oxygen Delivery Method Aerosol Mask 07/11/22 16:56 Course Orders Ordered: ED Orders 07/11/22 16:45 Complete Blood Count AUTO DIFF Stat Comprehensive Metabolic Panel Stat Ethanol (ETOH) Stat Lactate (Lactic Acid) Stat Lipase Stat Magnesium Stat NT-proBNP (BNP-Adult 18+) Stat Procalcitonin Stat Troponin & CK Cardiac Panel Stat 07/11/22 16:59 Urinalysis and Microscopic Stat 07/11/22 17:10 ABG [Arterial Blood Gas] Stat 07/11/22 17:12 RT Consult Eval and Treat NOW 07/11/22 17:18 Covid-19 + FLU A/B + RSV - PCR Stat 07/11/22 17:30 Blood Culture Stat D Dimer Stat Prothrombin Time INR Stat 07/11/22 17:45 Chest [XR chest 1V] Stat Discontinued Medications Albuterol/Ipratropium (Albuterol/Ipratropium 3 Ml Ampul) 3 ml INH NOW ONE Stop: 07/11/22 17:11 Last Admin: 07/11/22 17:15 Dose: 3 ml Documented By: RAO Albuterol/Ipratropium (Albuterol/Ipratropium 3 Ml Ampul) 3 ml INH NOW ONE Stop: 07/11/22 17:59 Last Admin: 07/11/22 18:00 Dose: 3 ml Sodium Chloride (Normal Saline 0.9%) 1,000 mls @ 1,000 mls/hr IV BOLUS ONE Stop: 07/11/22 17:57 Last Admin: 07/11/22 17:18 Dose: 1,000 mls/hr Documented By: AT Ceftriaxone Sodium 2,000 mg/ (Sodium Chloride) 100 mls @ 200 mls/hr IV NOW ONE Stop: 07/11/22 17:11 Last Admin: 07/11/22 17:58 Dose: 200 mls/hr Azithromycin 500 mg/ Dextrose 250 mls @ 250 mls/hr IV NOW ONE Stop: 07/11/22 18:28 Methylprednisolone (Methylprednisolone 125 Mg/2 Ml Vial) 125 mg IV NOW ONE Stop: 07/11/22 16:59 Last Admin: 07/11/22 17:18 Dose: 125 mg Documented By: AT Reevaluation(s) Reevaluation #1: Patient's work of breathing is still increased, lung sounds are improved however, patient is satting 96% on 5 L at this point Time: 17:53 Vital Signs Vital signs: Vital Signs - 8 hr 07/11/22 16:56 07/11/22 17:15 07/11/22 18:00 Temperature 99.4 F Pulse Rate 96 H 105 H 97 H Respiratory Rate 24 32 H 30 H Blood Pressure 162/95 H Pulse Oximetry 96 88 L 94 Oxygen Delivery Method Aerosol Mask Nasal Cannula Nasal Cannula Oxygen Flow Rate 6 5 Fraction of Inspired Oxygen 44 40 07/11/22 17:00 07/11/22 17:02 07/11/22 17:02 Temperature Pulse Rate 101 H Respiratory Rate Blood Pressure 162/95 H Pulse Oximetry 92 98 Oxygen Delivery Method Nasal Cannula Oxygen Flow Rate 5 Fraction of Inspired Oxygen 07/11/22 17:14 07/11/22 17:14 07/11/22 17:30 Temperature Pulse Rate 104 H Respiratory Rate 25 H Blood Pressure 106/54 L 102/69 Pulse Oximetry 91 Oxygen Delivery Method Nasal Cannula Oxygen Flow Rate 5 Fraction of Inspired Oxygen 07/11/22 17:30 07/11/22 18:00 07/11/22 18:01 Temperature Pulse Rate 96 H 101 H Respiratory Rate 34 H 25 H Blood Pressure 107/76 Pulse Oximetry 90 L 96 Oxygen Delivery Method Nasal Cannula Oxygen Flow Rate 5 Fraction of Inspired Oxygen 07/11/22 18:01 Temperature Pulse Rate 99 H Respiratory Rate 30 H Blood Pressure Pulse Oximetry 92 Oxygen Delivery Method Oxygen Flow Rate Fraction of Inspired Oxygen MDM - SOB/Dyspnea Lab Data 07/11/22 16:45 07/11/22 16:45 Labs: Lab Results 07/11/22 07/11/22 07/11/22 Range/Units 16:45 16:45 16:45 WBC 8.4 (4.5-11.0) X10^3/uL RBC 4.78 (4.5-5.9) X10^6/uL Hgb 15.0 (13.5-17.5) g/dL Hct 44.4 (41-53) % MCV 92.8 (80-100) fL MCH 31.5 (26-34) PG MCHC 33.9 (30-36) % RDW 14.0 (11.6-14.8) % Plt Count 298 (150-400) X10^3/uL Neut % (Auto) 71.4 (50-75) % Lymph % (Auto) 12.2 L (25-40) % [place] % (Auto) 15.5 H (3-14) % Eos % (Auto) 0.2 L (2-4) % Baso % (Auto) 0.7 (0-2) % Neut # (Auto) 6000 (5064-6938) /uL Lymph # (Auto) 1000 L (4564-4757) /uL [place] # (Auto) 1300 H (0-900) /uL Eos # (Auto) 0 (0-450) /uL Baso # (Auto) 100 (0-100) /uL PT (10.1-12.7) SECONDS INR (0.9-1.3) Sodium 127 L (137-145) mmol/L Potassium 5.6 H (3.4-5.1) mmol/L Chloride 90 L (98-107) mmol/L Carbon Dioxide 29 (22-32) mmol/L BUN 8 L (9-20) mg/dL Creatinine 0.46 L (0.66-1.25) mg/dL Estimated GFR > 60 (>60) mL/min BUN/Creatinine Ratio 17.4 (6-22) Glucose 115 H (80-110) mg/dL Lactate 1.4 (0.7-2.1) mmol/L Calcium 8.4 (8.4-10.2) mg/dL Magnesium 2.0 (1.6-2.3) mg/dL Total Bilirubin 1.3 (0.2-1.3) mg/dL AST 68 H (17-59) IU/L ALT 23 (<50) IU/L Alkaline Phosphatase 52 (38-126) U/L Total Creatine Kinase (55-170) U/L CK-MB (CK-2) (<2.37) ng/mL CK-MB (CK-2) Rel Index (1.5-5.0) % Troponin I (0.01-0.034) ng/mL NT-Pro-B Natriuret Pep 533 H (<125) pg/mL Total Protein 8.4 H (6.3-8.2) g/dL Albumin 4.2 (3.5-5.0) g/dL Globulin 4.2 H (1.7-4.1) g/dL Albumin/Globulin Ratio 1.0 (1.0-2.8) Lipase 59 (23-300) U/L Procalcitonin 0.05 (<0.5) ng/mL Ethyl Alcohol < 10 ( - 10) mg/dL SARS-CoV-2 (PCR) (Negative) Influenza A (RT-PCR) (NEGATIVE) Influenza B (RT-PCR) (NEGATIVE) RSV (PCR) (Negative) 07/11/22 07/11/22 07/11/22 Range/Units 16:45 17:18 17:30 WBC (4.5-11.0) X10^3/uL RBC (4.5-5.9) X10^6/uL Hgb (13.5-17.5) g/dL Hct (41-53) % MCV (80-100) fL MCH (26-34) PG MCHC (30-36) % RDW (11.6-14.8) % Plt Count (150-400) X10^3/uL Neut % (Auto) (50-75) % Lymph % (Auto) (25-40) % [place] % (Auto) (3-14) % Eos % (Auto) (2-4) % Baso % (Auto) (0-2) % Neut # (Auto) (1040-4295) /uL Lymph # (Auto) (0461-0671) /uL [place] # (Auto) (0-900) /uL Eos # (Auto) (0-450) /uL Baso # (Auto) (0-100) /uL PT 13.4 H (10.1-12.7) SECONDS INR 1.2 (0.9-1.3) Sodium (137-145) mmol/L Potassium (3.4-5.1) mmol/L Chloride (98-107) mmol/L Carbon Dioxide (22-32) mmol/L BUN (9-20) mg/dL Creatinine (0.66-1.25) mg/dL Estimated GFR (>60) mL/min BUN/Creatinine Ratio (6-22) Glucose (80-110) mg/dL Lactate (0.7-2.1) mmol/L Calcium (8.4-10.2) mg/dL Magnesium (1.6-2.3) mg/dL Total Bilirubin (0.2-1.3) mg/dL AST (17-59) IU/L ALT (<50) IU/L Alkaline Phosphatase (38-126) U/L Total Creatine Kinase 119 (55-170) U/L CK-MB (CK-2) 1.17 (<2.37) ng/mL CK-MB (CK-2) Rel Index 1.0 L (1.5-5.0) % Troponin I 0.013 (0.01-0.034) ng/mL NT-Pro-B Natriuret Pep (<125) pg/mL Total Protein (6.3-8.2) g/dL Albumin (3.5-5.0) g/dL Globulin (1.7-4.1) g/dL Albumin/Globulin Ratio (1.0-2.8) Lipase (23-300) U/L Procalcitonin (<0.5) ng/mL Ethyl Alcohol ( - 10) mg/dL SARS-CoV-2 (PCR) Negative (Negative) Influenza A (RT-PCR) Flu a negative (NEGATIVE) Influenza B (RT-PCR) Flu b negative (NEGATIVE) RSV (PCR) Negative (Negative) MDM Narrative Medical decision making narrative: Smoker with fever and increased work of breathing along hypoxemia is requiring 6 L of oxygen by nasal cannula, there is improvement in lung sounds with bronchodilators. He has been given steroids, Rocephin and azithromycin and remains on 6 L. Chest x-ray shows multifocal infiltrate. Respiratory panel is negative for COVID, flu and RSV. Patient requires hospitalization for further treatment and stabilization of his condition. Dr. Villarreal happy to accept on behalf of the hospitalist service Discharge Plan Departure Patient Disposition: Admitted As Inpatient Clinical Impression: Pneumonia, Acute exacerbation of chronic obstructive pulmonary disease, Acute hypoxemic respiratory failure
[2022-07-11 17:12] LABS: Add Manual Diff / Slide Review NO; Basophils Absolute Auto 100 /uL (0-100); Basophils Percent Auto 0.7 % (0-2); Eosinophils Absolute Auto 0 /uL (0-450); Eosinophils Percent Auto 0.2 % (2-4); Hematocrit 44.4 % (41-53); Lymphocytes Absolute Auto 1000 /uL (1100-4500); Lymphocytes Percent Auto 12.2 % (25-40); Mean Corpuscular HGB Conc 33.9 % (30-36); Mean Corpuscular Hemoglobin 31.5 PG (26-34); Mean Corpuscular Volume 92.8 fL (80-100); Monocytes Absolute Auto 1300 /uL (0-900); Monocytes Percent Auto 15.5 % (3-14); Neutrophils Absolute Auto 6000 /uL (1500-7000); Neutrophils Percent Auto 71.4 % (50-75); Platelet Count 298 X10^3/uL (150-400); Red Blood Cell Count 4.78 X10^6/uL (4.5-5.9); White Blood Cell Count 8.4 X10^3/uL (4.5-11.0)
[2022-07-11] MEDS: ALBUTEROL/IPRATROPIUM 3 ML AMPUL INH ×3 (17:15→22:16)
[2022-07-11] MEDS: SODIUM CHLORIDE 0.9% 1,000 ML 1000 ML IV ×2 (17:18→21:02)
[2022-07-11] MEDS: methylPREDNISolone 125 MG/2 ML VIAL IV (17:18)
[2022-07-11 17:29] LABS: Lactate (Lactic Acid) 1.4 mmol/L (0.7-2.1)
[2022-07-11 17:30] LABS: Creatine Kinase 119 U/L (55-170)
[2022-07-11 17:31] LABS: Alanine Aminotransferase 23 IU/L (<50); Albumin 4.2 g/dL (3.5-5.0); Alkaline Phosphatase 52 U/L (38-126); Aspartate Aminotransferase 68 IU/L (17-59); BUN Creatinine Ratio 17.4 (6-22); Bilirubin Total 1.3 mg/dL (0.2-1.3); Blood Urea Nitrogen 8 mg/dL (9-20); Calcium 8.4 mg/dL (8.4-10.2); Carbon Dioxide 29 mmol/L (22-32); Chloride 90 mmol/L (98-107); Estimated Glomerular Filt Rate > 60 mL/min (>60); Ethanol (ETOH) < 10 mg/dL; Globulin 4.2 g/dL (1.7-4.1); Glucose 115 mg/dL (80-110); Lipase 59 U/L (23-300); Sodium 127 mmol/L (137-145); Total Protein 8.4 g/dL (6.3-8.2)
[2022-07-11 17:32] LABS: HEMOLYSIS 278 (0-50)
[2022-07-11 17:33] LABS: Potassium 5.6 mmol/L (3.4-5.1)
[2022-07-11 17:39] LABS: NT-proBNP (BNP-Adult 18+) 533 pg/mL (<125)
[2022-07-11 17:42] LABS: Troponin I 0.013 ng/mL (0.01-0.034)
--- NOTE | 2022-07-11 17:45 | DI.RAD.S_ITS ---
PROCEDURE: XR CHEST 1V INDICATIONS: SOB TECHNIQUE: One view of the chest was acquired. COMPARISON: [facility], CR, XR CHEST 1V, 04/17/2021, 14:55. [facility], CR, XR CHEST 1V, 03/11/2022, 18:49. FINDINGS: Surgical changes and devices: None. Lungs and pleura: Lungs are mildly hyperexpanded. Diffuse bilateral interstitial opacities are again seen. No pleural effusion or pneumothorax. Mediastinum: Mediastinal contours appear normal. Heart size is normal. Bones and chest wall: No suspicious bony lesions. Overlying soft tissues appear unremarkable. IMPRESSION: Bilateral interstitial prominence may be secondary to chronic interstitial lung disease versus possibly an atypical or viral pneumonia or mild edema. Mildly hyperexpanded lungs can be seen in the setting of COPD. Approved by: Yordy Taylor M.D. on 07/11/2022 at 18:50
[2022-07-11 17:46] LABS: Creatine Kinase MB 1.17 ng/mL (<2.37)
[2022-07-11 17:46] LABS: INR 1.2 (0.9-1.3); Prothrombin Time 13.4 SECONDS (10.1-12.7)
[2022-07-11 17:47] LABS: Procalcitonin 0.05 ng/mL (<0.5)
[2022-07-11] MEDS: cefTRIAXone 2,000 MG in SODIUM CHLORIDE 0.9% 100 ML 200 MG IV (17:58)
[2022-07-11 18:03] LABS: Influenza A - CEPHEID Flu A NEGATIVE (NEGATIVE); Influenza B - CEPHEID Flu B NEGATIVE (NEGATIVE); Respiratory Syncytial Virus Negative (Negative)
[2022-07-11 18:10] LABS: COVID-19 CEPHEID 4-PLEX PCR Negative (Negative)
[2022-07-11 18:25] LABS: D Dimer 443 ng/ml (<500)
--- NOTE | 2022-07-11 18:28 | PC.NURSE ---
Shortly after arrival pt was trialed on RA with RT at bedside, pt 87% on RA.
[2022-07-11 18:31] LABS: Fractionated Inspired Oxygen 44; HCO3 ABG 25 mmol/L (23-27); Oxygen Saturation ABG 95 % (95-100); PCO2 ABG 45.6 mmHg (35-45); PO2 ABG 82 mmHg (80-100); TCO2 ABG 27 mmol/L (23-27); pH ABG 7.35 (7.35-7.45)
[2022-07-11] MEDS: AZITHROMYCIN 500 MG in DEXTROSE 5% IN WATER 250 ML 250 MG IV (18:51)
--- NOTE | 2022-07-11 20:21 | PC.NURSE ---
1758 Pt. admitted to room 223 oriented to his room. Reported had a fall at home, call light within reached & bed alarm activated. Instructed to call for assistance if he needed to get up OOB. Will continue POC & monitor.
[2022-07-11] MEDS: SODIUM CHLORIDE 0.9% FLUSH 10 ML IV (21:02)
--- NOTE | 2022-07-11 21:23 | P.HP_ITS ---
History of Present Illness History of Present Illness Date Patient Seen: 07/11/22 Time Patient Seen: 19:30 Chief complaint: Weakness Narrative: Mr. Rivera is a 72M with PMH COPD, smoker, carotid stenosis, alcohol use who presents to the hospital with weakness and shortness of breath. He lives on one of the [facility]. He has inconsistent access to electricity and has been recommended to use oxygen in the past, he has a concentrator, but can not always utilized it due to needing to use a generator. He has had three days of cough, nonproductive, chills, and shortness of breath. He continues to smoke, but less than previously. In the ED workup was done and vitals notable for afebrile, heart rate in the 90s, respiratory rate in the 20s, blood pressure 160s/90s. Sats in the 80s when EMS arrived. He was placed on 6L oxygen initially. Labs reviewed by me and ubaldo brice for WBC 8.4, hgb 15.0, plts 298. Na 127, k 5.6 (hemolyzed specimen), creatinine 0.46. Lactate 1.4, bili 1.3. BNP 533. Trop negative. Procal 0.05. COVID, flu, and RSV negative. Chest xray reviewed by me an notable for inflated lungs and interstitial infiltrate. He was ordered for nebs, steroids, and antibiotics and admitted for further treatment. PENDING SALE TO [facility] Medical History Acute bronchitis Alcohol dependence Atypical ductal hyperplasia of right breast Chronic cough (2017) Depression End stage COPD Fractures (Unknown) Incidental lung nodule, > 3mm and < 8mm Partial blindness (Unknown) Schizophrenia (Unknown) Substance abuse (Unknown) Tobacco use Surgical History History of open reduction and internal fixation (ORIF) procedure (Unknown) Hx of hernia repair Social History household members: none Smoking Status: Current every day smoker Tobacco: How many years used: 45 quit status: considering quitting second hand exposure: Yes alcohol intake: current substance use type: does not use Meds Home Medications and Allergies Home Medications Medication Instructions Recorded Confirmed Type Nasal Canula/Tubing #1 ea 04/30/21 07/11/22 Rx O2 Concentrator #1 ea 04/30/21 07/11/22 Rx albuterol sulfate 90 mcg/actuation 2 puff inhalation QID PRN 03/11/22 07/11/22 Rx aerosol inhaler (ProAir HFA) shortness of breath or wheezing #8.5 grams ipratropium 20 mcg-albuterol 100 1 puff inhalation Q4H #4 grams 07/08/22 07/11/22 Rx mcg/actuation mist for inhalation (Combivent Respimat) Allergies Allergy/AdvReac Type Severity Reaction Status Date / Time No Known Drug Allergies Allergy Verified 07/11/22 17:02 Review of Systems Review of Systems Narrative: 14 systems reviewed and negative aside from what is noted in HPI Exam Vital Signs (past 8 hours): - 07/11/22 16:56 07/11/22 17:15 07/11/22 18:00 Temperature 99.4 F Pulse Rate 96 H 105 H 97 H Respiratory Rate 24 32 H 30 H Blood Pressure 162/95 H Pulse Oximetry 96 88 L 94 Oxygen Delivery Method Aerosol Mask Nasal Cannula Nasal Cannula Oxygen Flow Rate 6 5 Fraction of Inspired Oxygen 44 40 07/11/22 17:00 07/11/22 17:02 07/11/22 17:02 Temperature Pulse Rate 101 H Respiratory Rate Blood Pressure 162/95 H Pulse Oximetry 92 98 Oxygen Delivery Method Nasal Cannula Oxygen Flow Rate 5 Fraction of Inspired Oxygen 07/11/22 17:14 07/11/22 17:14 07/11/22 17:30 Temperature Pulse Rate 104 H Respiratory Rate 25 H Blood Pressure 106/54 L 102/69 Pulse Oximetry 91 Oxygen Delivery Method Nasal Cannula Oxygen Flow Rate 5 Fraction of Inspired Oxygen 07/11/22 17:30 07/11/22 18:00 07/11/22 18:01 Temperature Pulse Rate 96 H 101 H Respiratory Rate 34 H 25 H Blood Pressure 107/76 Pulse Oximetry 90 L 96 Oxygen Delivery Method Nasal Cannula Oxygen Flow Rate 5 Fraction of Inspired Oxygen 07/11/22 18:01 07/11/22 18:30 07/11/22 18:30 Temperature Pulse Rate 99 H 103 H Respiratory Rate 30 H 30 H Blood Pressure 101/76 Pulse Oximetry 92 94 Oxygen Delivery Method Nasal Cannula Oxygen Flow Rate 5 Fraction of Inspired Oxygen 07/11/22 19:00 07/11/22 19:00 07/11/22 20:00 Temperature 98.6 F Pulse Rate 103 H 108 H Respiratory Rate 22 23 Blood Pressure 92/59 L 108/70 Pulse Oximetry 94 93 Oxygen Delivery Method Nasal Cannula Oxygen Flow Rate 5 5 Fraction of Inspired Oxygen Fraction of Inspired Oxygen 40 SaO2/FiO2 Ratio 235 Oxygen Delivery Method Nasal Cannula Oxygen Flow Rate 5 Narrative Exam Narrative: GEN: in respiratory distress HEENT: moist mucous membranes, PERRL NECK: trachea midline, no JVD PULM: coarse breath sounds, wheezes, poor air movement CV: regular rate and rhythm, no murmurs ABD: soft, nontender, nondistended, no organomegaly EXT: warm and well perfused with no edema NEURO: awake, alert, oriented, no focal deficits Objective Labs 07/11/22 16:45 07/11/22 21:56 Labs: Laboratory Results - last 24 hr 07/11/22 07/11/22 07/11/22 16:45 16:45 16:45 WBC 8.4 RBC 4.78 Hgb 15.0 Hct 44.4 MCV 92.8 MCH 31.5 MCHC 33.9 RDW 14.0 Plt Count 298 Neut % (Auto) 71.4 Lymph % (Auto) 12.2 L [place] % (Auto) 15.5 H Eos % (Auto) 0.2 L Baso % (Auto) 0.7 Neut # (Auto) 6000 Lymph # (Auto) 1000 L [place] # (Auto) 1300 H Eos # (Auto) 0 Baso # (Auto) 100 PT INR D-Dimer ABG pH ABG pCO2 ABG pO2 ABG HCO3 ABG Total CO2 ABG O2 Saturation ABG Base Excess FiO2 Sodium 127 L Potassium 5.6 H Chloride 90 L Carbon Dioxide 29 BUN 8 L Creatinine 0.46 L Estimated GFR > 60 BUN/Creatinine Ratio 17.4 Glucose 115 H Lactate 1.4 Calcium 8.4 Magnesium 2.0 Total Bilirubin 1.3 AST 68 H ALT 23 Alkaline Phosphatase 52 Total Creatine Kinase CK-MB (CK-2) CK-MB (CK-2) Rel Index Troponin I NT-Pro-B Natriuret Pep 533 H Total Protein 8.4 H Albumin 4.2 Globulin 4.2 H Albumin/Globulin Ratio 1.0 Lipase 59 Procalcitonin 0.05 Ethyl Alcohol < 10 SARS-CoV-2 (PCR) Influenza A (RT-PCR) Influenza B (RT-PCR) RSV (PCR) 07/11/22 07/11/2207/11/23 16:45 17:18 17:30 WBC RBC Hgb Hct MCV MCH MCHC RDW Plt Count Neut % (Auto) Lymph % (Auto) [place] % (Auto) Eos % (Auto) Baso % (Auto) Neut # (Auto) Lymph # (Auto) [place] # (Auto) Eos # (Auto) Baso # (Auto) PT 13.4 H INR 1.2 D-Dimer ABG pH ABG pCO2 ABG pO2 ABG HCO3 ABG Total CO2 ABG O2 Saturation ABG Base Excess FiO2 Sodium Potassium Chloride Carbon Dioxide BUN Creatinine Estimated GFR BUN/Creatinine Ratio Glucose Lactate Calcium Magnesium Total Bilirubin AST ALT Alkaline Phosphatase Total Creatine Kinase 119 CK-MB (CK-2) 1.17 CK-MB (CK-2) Rel Index 1.0 L Troponin I 0.013 NT-Pro-B Natriuret Pep Total Protein Albumin Globulin Albumin/Globulin Ratio Lipase Procalcitonin Ethyl Alcohol SARS-CoV-2 (PCR) Negative Influenza A (RT-PCR) Flu a negative Influenza B (RT-PCR) Flu b negative RSV (PCR) Negative 07/11/22 07/11/22 17:30 18:17 WBC RBC Hgb Hct MCV MCH MCHC RDW Plt Count Neut % (Auto) Lymph % (Auto) [place] % (Auto) Eos % (Auto) Baso % (Auto) Neut # (Auto) Lymph # (Auto) [place] # (Auto) Eos # (Auto) Baso # (Auto) PT INR D-Dimer 443 ABG pH 7.35 ABG pCO2 45.6 H ABG pO2 82 ABG HCO3 25 ABG Total CO2 27 ABG O2 Saturation 95 ABG Base Excess 0.0 FiO2 44 Sodium Potassium Chloride Carbon Dioxide BUN Creatinine Estimated GFR BUN/Creatinine Ratio Glucose Lactate Calcium Magnesium Total Bilirubin AST ALT Alkaline Phosphatase Total Creatine Kinase CK-MB (CK-2) CK-MB (CK-2) Rel Index Troponin I NT-Pro-B Natriuret Pep Total Protein Albumin Globulin Albumin/Globulin Ratio Lipase Procalcitonin Ethyl Alcohol SARS-CoV-2 (PCR) Influenza A (RT-PCR) Influenza B (RT-PCR) RSV (PCR) Assessment & Plan Assessment & Plan narrative: 1. Acute on chronic copd exacerbation with hypoxemic respiratory failure -patient with cough, hypoxic to the 80s, wheezing -etiology most likely copd exacerbation -also possibility of pneumonia, though less likely bacterial, possibly has viral process -xray with interstitial abnormalities noted -given severe baseline lung disease will treat cautiously and start IV antibiotics with IV ceftriaxone, azithromycin -started nebs, steroids 2. Active smoker -nicotine patch 3. EtOH abuse -not currently withdrawing, low risk for severe withdrawal -CIWA precautions -MVI, thiamine, folate -ativan prn for withdrawal 4. Spiculated lung nodule -known to patient, I have personally encouraged follow up previously -follow up as outpatient if within goals of care of patient 5. Carotid artery stenosis -noted previously to have vertebral artery plaque -continue aspirin/statin -may be referred to vascular if he is interesting in intervention I have discussed plan and obtained history from the patient. I have discussed plan of care with ED physician and bedside nurse. I have reviewed labs, chest imaging, and previous medical records. CODE: DNR/DNI Proxy: Jean Claude Alfaro, andrea Quality VTE Deep Vein Thrombosis/Pulmonary Embolism Present on Admission: No MIPS - Meds 'Current medications' to include all prescriptions, [id number] products, herbals, cannabis/cannabidiol products, and vitamin/mineral/dietary (nutritional) supplements. I have utilized all available resources to obtain, update, or review the patien t?s current medications. [If Yes, STOP here]: Yes
[2022-07-11 21:43] LABS: Appearance Urine UA CLEAR; Bilirubin Urine UA NEGATIVE (NEGATIVE); Color Urine UA YELLOW; Glucose Urine UA 1+ g/dL (Negative); Ketones Urine UA TRACE (NEGATIVE); Leukocyte Esterase Urine UA NEGATIVE (NEGATIVE); Nitrite Urine UA NEGATIVE (Negative); Occult Blood Urine UA NEGATIVE (Negative); Protein Urine UA NEGATIVE (Negative); Urobilinogen Urine UA 0.2 E.U./dL (0.2); pH Urine UA 5.5 (4.5-8.0)
[2022-07-11 21:51] LABS: Bacteria Urine Occasional (0-1); Culture Indicated Urine Cult Not Indicated; RBC Urine None Seen (0-5/HPF); Squamous Epithelial Cell Urine 0-1 /HPF (0-5/HPF); WBC Urine 0-1/HPF (0-5/HPF)
[2022-07-11 22:33] LABS: HEMOLYSIS < 15 (0-50); Potassium 3.9 mmol/L (3.4-5.1)
[2022-07-12] VITALS (8 sets, daily range): BP systolic 109–129; BP diastolic 56–63; PULSE 76–100; RESP 20–28; TEMP 36.3–37.1; O2SAT 93–98; BMI 20.5
[2022-07-12 04:52] LABS: Add Manual Diff / Slide Review NO; Basophils Absolute Auto 0 /uL (0-100); Basophils Percent Auto 0.3 % (0-2); Eosinophils Absolute Auto 0 /uL (0-450); Hematocrit 39.2 % (41-53); Hemoglobin 13.3 g/dL (13.5-17.5); Lymphocytes Absolute Auto 600 /uL (1100-4500); Lymphocytes Percent Auto 16.3 % (25-40); Mean Corpuscular Hemoglobin 31.5 PG (26-34); Mean Corpuscular Volume 92.5 fL (80-100); Monocytes Absolute Auto 400 /uL (0-900); Monocytes Percent Auto 9.9 % (3-14); Neutrophils Absolute Auto 2700 /uL (1500-7000); Neutrophils Percent Auto 73.5 % (50-75); Platelet Count 248 X10^3/uL (150-400); Red Blood Cell Count 4.24 X10^6/uL (4.5-5.9); Red Cell Distribution Width 13.6 % (11.6-14.8); White Blood Cell Count 3.6 X10^3/uL (4.5-11.0)
[2022-07-12 04:56] LABS: BUN Creatinine Ratio 19.1 (6-22); Blood Urea Nitrogen 9 mg/dL (9-20); Calcium 8.1 mg/dL (8.4-10.2); Carbon Dioxide 30 mmol/L (22-32); Chloride 100 mmol/L (98-107); Estimated Glomerular Filt Rate > 60 mL/min (>60); Glucose 222 mg/dL (80-110); HEMOLYSIS < 15 (0-50); Potassium 4.1 mmol/L (3.4-5.1); Sodium 134 mmol/L (137-145)
--- NOTE | 2022-07-12 07:47 | PM.PN.1 ---
Subjective Subjective Interval history: Patient continues on 5L O2. He says this is his baseline at home but he only uses oxygen occasionally due to no electricity and using a generator for power. Exam Vital Signs (past 8 hours): - 07/12/22 04:43 Temperature 98.3 F Pulse Rate 100 H Respiratory Rate 20 Blood Pressure 112/60 Pulse Oximetry 93 Oxygen Flow Rate 5 Fraction of Inspired Oxygen 40 SaO2/FiO2 Ratio 235 Oxygen Delivery Method Nasal Cannula Oxygen Flow Rate 5 Narrative Exam Narrative: GEN: eduntulous disheveled male who has conversational dyspnea HEENT: moist mucous membranes, PERRL NECK: trachea midline, no JVD PULM: scattered expiratory wheezes, poor air movement CV: regular rate and rhythm, no murmurs ABD: soft, nontender, nondistended, no organomegaly EXT: warm and well perfused with no edema NEURO: awake, alert, oriented, no focal deficits Objective Labs 07/12/22 04:33 07/12/22 04:33 Labs: Laboratory Results - last 24 hr 07/11/22 07/11/22 07/11/22 16:45 16:45 16:45 WBC 8.4 RBC 4.78 Hgb 15.0 Hct 44.4 MCV 92.8 MCH 31.5 MCHC 33.9 RDW 14.0 Plt Count 298 Neut % (Auto) 71.4 Lymph % (Auto) 12.2 L [place] % (Auto) 15.5 H Eos % (Auto) 0.2 L Baso % (Auto) 0.7 Neut # (Auto) 6000 Lymph # (Auto) 1000 L [place] # (Auto) 1300 H Eos # (Auto) 0 Baso # (Auto) 100 PT INR D-Dimer ABG pH ABG pCO2 ABG pO2 ABG HCO3 ABG Total CO2 ABG O2 Saturation ABG Base Excess FiO2 Sodium 127 L Potassium 5.6 H Chloride 90 L Carbon Dioxide 29 BUN 8 L Creatinine 0.46 L Estimated GFR > 60 BUN/Creatinine Ratio 17.4 Glucose 115 H Lactate 1.4 Calcium 8.4 Magnesium 2.0 Total Bilirubin 1.3 AST 68 H ALT 23 Alkaline Phosphatase 52 Total Creatine Kinase CK-MB (CK-2) CK-MB (CK-2) Rel Index Troponin I NT-Pro-B Natriuret Pep 533 H Total Protein 8.4 H Albumin 4.2 Globulin 4.2 H Albumin/Globulin Ratio 1.0 Lipase 59 Procalcitonin 0.05 Urine Color Urine Appearance Urine pH Ur Specific [place] Urine Protein Urine Glucose (UA) Urine Ketones Urine Occult Blood Urine Nitrate Urine Bilirubin Urine Urobilinogen Ur Leukocyte Esterase Urine RBC Urine WBC Ur Squamous Epith Cells Urine Bacteria Ur Culture Indicated? Ethyl Alcohol < 10 SARS-CoV-2 (PCR) Influenza A (RT-PCR) Influenza B (RT-PCR) RSV (PCR) 07/11/22 07/11/22 07/11/22 16:45 17:18 17:30 WBC RBC Hgb Hct MCV MCH MCHC RDW Plt Count Neut % (Auto) Lymph % (Auto) [place] % (Auto) Eos % (Auto) Baso % (Auto) Neut # (Auto) Lymph # (Auto) [place] # (Auto) Eos # (Auto) Baso # (Auto) PT 13.4 H INR 1.2 D-Dimer ABG pH ABG pCO2 ABG pO2 ABG HCO3 ABG Total CO2 ABG O2 Saturation ABG Base Excess FiO2 Sodium Potassium Chloride Carbon Dioxide BUN Creatinine Estimated GFR BUN/Creatinine Ratio Glucose Lactate Calcium Magnesium Total Bilirubin AST ALT Alkaline Phosphatase Total Creatine Kinase 119 CK-MB (CK-2) 1.17 CK-MB (CK-2) Rel Index 1.0 L Troponin I 0.013 NT-Pro-B Natriuret Pep Total Protein Albumin Globulin Albumin/Globulin Ratio Lipase Procalcitonin Urine Color Urine Appearance Urine pH Ur Specific [place] Urine Protein Urine Glucose (UA) Urine Ketones Urine Occult Blood Urine Nitrate Urine Bilirubin Urine Urobilinogen Ur Leukocyte Esterase Urine RBC Urine WBC Ur Squamous Epith Cells Urine Bacteria Ur Culture Indicated? Ethyl Alcohol SARS-CoV-2 (PCR) Negative Influenza A (RT-PCR) Flu a negative Influenza B (RT-PCR) Flu b negative RSV (PCR) Negative 07/11/22 07/11/22 07/11/22 17:30 18:17 20:05 WBC RBC Hgb Hct MCV MCH MCHC RDW Plt Count Neut % (Auto) Lymph % (Auto) [place] % (Auto) Eos % (Auto) Baso % (Auto) Neut # (Auto) Lymph # (Auto) [place] # (Auto) Eos # (Auto) Baso # (Auto) PT INR D-Dimer 443 ABG pH 7.35 ABG pCO2 45.6 H ABG pO2 82 ABG HCO3 25 ABG Total CO2 27 ABG O2 Saturation 95 ABG Base Excess 0.0 FiO2 44 Sodium Potassium Chloride Carbon Dioxide BUN Creatinine Estimated GFR BUN/Creatinine Ratio Glucose Lactate Calcium Magnesium Total Bilirubin AST ALT Alkaline Phosphatase Total Creatine Kinase CK-MB (CK-2) CK-MB (CK-2) Rel Index Troponin I NT-Pro-B Natriuret Pep Total Protein Albumin Globulin Albumin/Globulin Ratio Lipase Procalcitonin Urine Color Yellow Urine Appearance Clear Urine pH 5.5 Ur Specific [place] 1.010 Urine Protein Negative Urine Glucose (UA) 1+ H Urine Ketones Trace H Urine Occult Blood Negative Urine Nitrate Negative Urine Bilirubin Negative Urine Urobilinogen 0.2 Ur Leukocyte Esterase Negative Urine RBC None seen Urine WBC 0-1/hpf Ur Squamous Epith Cells 0-1 /hpf Urine Bacteria Occasional (0-1) Ur Culture Indicated? Cult not indicated Ethyl Alcohol SARS-CoV-2 (PCR) Influenza A (RT-PCR) Influenza B (RT-PCR) RSV (PCR) 07/11/22 07/12/22 07/12/22 21:56 04:33 04:33 WBC 3.6 L D RBC 4.24 L Hgb 13.3 L Hct 39.2 L MCV 92.5 MCH 31.5 MCHC 34.0 RDW 13.6 Plt Count 248 Neut % (Auto) 73.5 Lymph % (Auto) 16.3 L [place] % (Auto) 9.9 Eos % (Auto) 0.0 L Baso % (Auto) 0.3 Neut # (Auto) 2700 Lymph # (Auto) 600 L [place] # (Auto) 400 Eos # (Auto) 0 Baso # (Auto) 0 PT INR D-Dimer ABG pH ABG pCO2 ABG pO2 ABG HCO3 ABG Total CO2 ABG O2 Saturation ABG Base Excess FiO2 Sodium 134 L Potassium 3.9 D 4.1 Chloride 100 Carbon Dioxide 30 BUN 9 Creatinine 0.47 L Estimated GFR > 60 BUN/Creatinine Ratio 19.1 Glucose 222 H D Lactate Calcium 8.1 L Magnesium Total Bilirubin AST ALT Alkaline Phosphatase Total Creatine Kinase CK-MB (CK-2) CK-MB (CK-2) Rel Index Troponin I NT-Pro-B Natriuret Pep Total Protein Albumin Globulin Albumin/Globulin Ratio Lipase Procalcitonin Urine Color Urine Appearance Urine pH Ur Specific [place] Urine Protein Urine Glucose (UA) Urine Ketones Urine Occult Blood Urine Nitrate Urine Bilirubin Urine Urobilinogen Ur Leukocyte Esterase Urine RBC Urine WBC Ur Squamous Epith Cells Urine Bacteria Ur Culture Indicated? Ethyl Alcohol SARS-CoV-2 (PCR) Influenza A (RT-PCR) Influenza B (RT-PCR) RSV (PCR) PFSH Medical History Acute bronchitis Alcohol dependence Atypical ductal hyperplasia of right breast Chronic cough (2017) Depression End stage COPD Fractures (Unknown) Incidental lung nodule, > 3mm and < 8mm Partial blindness (Unknown) Schizophrenia (Unknown) Substance abuse (Unknown) Tobacco use Surgical History History of open reduction and internal fixation (ORIF) procedure (Unknown) Hx of hernia repair Social History household members: none Smoking Status: Current every day smoker Tobacco: How many years used: 45 quit status: considering quitting second hand exposure: Yes alcohol intake: current substance use type: does not use Assessment & Plan Assessment & Plan narrative: 1. Acute on chronic hypoxemic respiratory failure due to COPD exacerbation -patient with cough, hypoxic to the 80s, wheezing -etiology most likely copd exacerbation -also possibility of pneumonia, though less likely bacterial given neg procal, possibly has viral process with xray showing interstitial abnormalities -given severe baseline lung disease will treat cautiously and start IV antibiotics with IV ceftriaxone, azithromycin -started nebs, IV steroids -currently on 5L NC which is at his baseline, but still feels SOB and with wheezes 2. Active smoker -patient still smokes but says he has cut way down -nicotine patch 3. EtOH abuse -not currently withdrawing, low risk for severe withdrawal -CIWA precautions -MVI, thiamine, folate -ativan prn for withdrawal 4. Spiculated lung nodule -known to patient, I have personally encouraged follow up previously -follow up as outpatient if within goals of care of patient 5. Carotid artery stenosis -noted previously to have vertebral artery plaque -continue aspirin/statin -may be referred to vascular if he is interesting in intervention I have discussed plan and obtained history from the patient. I have discussed plan of care with ED physician and bedside nurse. I have reviewed labs, chest imaging, and previous medical records. CODE: DNR/DNI Proxy: Jean Claude Alfaro, friend Dispo: Home in likely 2 days pending improvement in COPD exac. Quality VTE Deep Vein Thrombosis/Pulmonary Embolism Present on Admission: No
[2022-07-12] MEDS: ASPIRIN EC 81 MG TABLET PO (08:07)
[2022-07-12] MEDS: ATORVASTATIN 20 MG TABLET 80 MG PO (08:07)
[2022-07-12] MEDS: methylPREDNISolone 125 MG/2 ML VIAL 60 MG IV ×3 (08:07→23:53)
[2022-07-12] MEDS: SODIUM CHLORIDE 0.9% FLUSH 10 ML IV ×2 (08:08→21:30)
[2022-07-12] MEDS: THIAMINE 100 MG TABLET PO (08:08)
[2022-07-12] MEDS: MULTIVITAMIN 1 TABLET 1 TAB PO (08:08)
[2022-07-12] MEDS: FOLIC ACID 1 MG TABLET PO (08:08)
--- NOTE | 2022-07-12 08:36 | CM.DANOTE ---
DCP: Case received, EMR reviewed and met with patient. Introduced self and role. Was able to obtain information regarding patient's baseline activity level at home, as well as his current living situation. DCP assessment completed with information currently available. Patient is a 72 year old male who admitted yesterday afternoon to the care of the hospitalist team. PCP: Dr. Potter. Payer: confirmed: [facility]. Patient came to the hospital via ambulance secondary to having increased shortness of breath. Notes indicate patient had been feeling under the weather for the past 2-3 days. Patient's sats had been in the low 80s when EMS had arrived. Patient is a daily drinker and smoker. He was diagnosed with acute on chronic COPD exacerbation with hypoxemic respiratory failure, possibility of pneumonia. Met with patient in his room. He is alert and oriented, had oxygen in place, laying in bed. Confirmed that he resides on [facility] alone, has a friend named Jose Alfaro, that also resides on [facility]. He is independent, drives, and does have an oxygen concentrator at home, as well as a generator. P: DCP to continue to follow for any needs. Patient should be able to go home when deemed medically stable. Janet Heath RN/Client Administrator Discharge Planning/Care Management CM Discharge Assessment Start: 07/12/22 08:35 Freq: Status: Active Protocol: Document 07/12/22 08:35 (Rec: 07/12/22 08:36 [id number]) Discharge Planning Assessment Assigned Rn Visiting Janet Heath RN/Client Administrator Advance Directives? No History Provided By Patient,Medical Record Prior Living Arrangements House Household Members none Type of transporation used prior to Drives own vehicle admit Willing to Return to Facility? No Independent with ADL's Yes Is patient alert and oriented? Yes Caregiver for Another No Comment See narrative. additionally; From assessment completed August 2020: Patient does consume a significant amount of alcohol, but is not wanting any resources, and will continue drinking Discharge Plan Home Transportation Arrangement Friend Referrals Initiated None needed Whiteboard Updated in Patient Room with Yes name and ext. # of Rn Visiting Review Status In Process Next Review Type Continued Stay Review
[2022-07-12] MEDS: ALBUTEROL/IPRATROPIUM 3 ML AMPUL INH ×4 (08:48→18:48)
[2022-07-12] MEDS: cefTRIAXone 1,000 MG in SODIUM CHLORIDE 0.9% 100 ML 200 MG IV (16:34)
[2022-07-12] MEDS: AZITHROMYCIN 500 MG in DEXTROSE 5% IN WATER 250 ML 250 MG IV (17:37)
[2022-07-13] VITALS (10 sets, daily range): BP systolic 121–133; BP diastolic 58–75; PULSE 78–97; RESP 18–28; TEMP 36.2–36.9; O2SAT 93–96
[2022-07-13] MEDS: ALBUTEROL/IPRATROPIUM 3 ML AMPUL INH ×5 (03:52→23:08)
[2022-07-13 04:52] LABS: Add Manual Diff / Slide Review NO; Basophils Absolute Auto 0 /uL (0-100); Basophils Percent Auto 0.1 % (0-2); Eosinophils Absolute Auto 0 /uL (0-450); Hematocrit 39.7 % (41-53); Hemoglobin 13.5 g/dL (13.5-17.5); Lymphocytes Absolute Auto 1100 /uL (1100-4500); Lymphocytes Percent Auto 9.3 % (25-40); Mean Corpuscular HGB Conc 33.9 % (30-36); Mean Corpuscular Hemoglobin 31.2 PG (26-34); Monocytes Absolute Auto 900 /uL (0-900); Monocytes Percent Auto 7.8 % (3-14); Neutrophils Absolute Auto 9400 /uL (1500-7000); Neutrophils Percent Auto 82.8 % (50-75); Platelet Count 277 X10^3/uL (150-400); Red Blood Cell Count 4.31 X10^6/uL (4.5-5.9); Red Cell Distribution Width 13.6 % (11.6-14.8); White Blood Cell Count 11.4 X10^3/uL (4.5-11.0)
[2022-07-13 05:10] LABS: BUN Creatinine Ratio 22.4 (6-22); Blood Urea Nitrogen 11 mg/dL (9-20); Calcium 8.7 mg/dL (8.4-10.2); Carbon Dioxide 33 mmol/L (22-32); Chloride 99 mmol/L (98-107); Estimated Glomerular Filt Rate > 60 mL/min (>60); Glucose 145 mg/dL (80-110); HEMOLYSIS < 15 (0-50); Potassium 4.2 mmol/L (3.4-5.1); Sodium 135 mmol/L (137-145)
[2022-07-13] MEDS: ENOXAPARIN 40 MG/0.4 ML SYRINGE SUBCUT (08:15)
[2022-07-13] MEDS: methylPREDNISolone 125 MG/2 ML VIAL 60 MG IV ×3 (08:15→23:31)
[2022-07-13] MEDS: THIAMINE 100 MG TABLET PO (08:16)
[2022-07-13] MEDS: MULTIVITAMIN 1 TABLET 1 TAB PO (08:20)
[2022-07-13] MEDS: ASPIRIN EC 81 MG TABLET PO (08:58)
[2022-07-13] MEDS: FOLIC ACID 1 MG TABLET PO (08:59)
[2022-07-13] MEDS: SODIUM CHLORIDE 0.9% FLUSH 10 ML IV ×3 (09:00→23:32)
--- NOTE | 2022-07-13 16:35 | P.PN_ITS ---
Subjective Subjective Interval history: Patient feels his breathing is slowly improving. Exam Vital Signs (past 8 hours): - 07/13/22 09:47 07/13/22 11:00 07/13/22 15:53 Temperature 98.4 F Pulse Rate 97 H 86 89 Respiratory Rate 28 H 21 22 Blood Pressure 130/72 Pulse Oximetry 93 95 94 Oxygen Delivery Method Nasal Cannula Nasal Cannula Oxygen Flow Rate 2 2 2 07/13/22 15:00 Temperature 98.2 F Pulse Rate 88 Respiratory Rate 19 Blood Pressure 127/75 Pulse Oximetry 94 Oxygen Delivery Method Oxygen Flow Rate 2 Fraction of Inspired Oxygen 40 SaO2/FiO2 Ratio 235 Oxygen Delivery Method Nasal Cannula Oxygen Flow Rate 2 Narrative Exam Narrative: GEN: eduntulous disheveled male who has conversational dyspnea HEENT: moist mucous membranes, PERRL NECK: trachea midline, no JVD PULM: scattered expiratory wheezes, poor air movement CV: regular rate and rhythm, no murmurs ABD: soft, nontender, nondistended, no organomegaly EXT: warm and well perfused with no edema NEURO: awake, alert, oriented, no focal deficits Objective Labs 07/13/22 04:28 07/13/22 04:28 Labs: Laboratory Results - last 24 hr 07/13/22 07/13/22 04:28 04:28 WBC 11.4 H D RBC 4.31 L Hgb 13.5 Hct 39.7 L MCV 92.0 MCH 31.2 MCHC 33.9 RDW 13.6 Plt Count 277 Neut % (Auto) 82.8 H Lymph % (Auto) 9.3 L [place] % (Auto) 7.8 Eos % (Auto) 0.0 L Baso % (Auto) 0.1 Neut # (Auto) 9400 H Lymph # (Auto) 1100 [place] # (Auto) 900 Eos # (Auto) 0 Baso # (Auto) 0 Sodium 135 L Potassium 4.2 Chloride 99 Carbon Dioxide 33 H BUN 11 Creatinine 0.49 L Estimated GFR > 60 BUN/Creatinine Ratio 22.4 H Glucose 145 H Calcium 8.7 PFSH Medical History Acute bronchitis Alcohol dependence Atypical ductal hyperplasia of right breast Chronic cough (2017) Depression End stage COPD Fractures (Unknown) Incidental lung nodule, > 3mm and < 8mm Partial blindness (Unknown) Schizophrenia (Unknown) Substance abuse (Unknown) Tobacco use Surgical History History of open reduction and internal fixation (ORIF) procedure (Unknown) Hx of hernia repair Social History household members: none Smoking Status: Current every day smoker Tobacco: How many years used: 45 quit status: considering quitting second hand exposure: Yes alcohol intake: current substance use type: does not use Assessment & Plan Assessment & Plan narrative: 1. Acute on chronic hypoxemic respiratory failure due to COPD exacerbation -patient with cough, hypoxic to the 80s, wheezing -etiology most likely copd exacerbation -also possibility of pneumonia, though less likely bacterial given neg procal, possibly has viral process with xray showing interstitial abnormalities -given severe baseline lung disease will treat cautiously and start IV antibiotics with IV ceftriaxone, azithromycin -started nebs, IV steroids -currently on 5L NC which is at his baseline, but still feels SOB and with wheezes -home O2 eval to check what O2 needs with activity is 2. Active smoker -patient still smokes but says he has cut way down -nicotine patch 3. EtOH abuse -not currently withdrawing, low risk for severe withdrawal -CIWA precautions -MVI, thiamine, folate -ativan prn for withdrawal 4. Spiculated lung nodule -known to patient, I have personally encouraged follow up previously -follow up as outpatient if within goals of care of patient 5. Carotid artery stenosis -noted previously to have vertebral artery plaque -continue aspirin/statin -may be referred to vascular if he is interesting in intervention I have discussed plan and obtained history from the patient. I have discussed plan of care with ED physician and bedside nurse. I have reviewed labs, chest imaging, and previous medical records. CODE: DNR/DNI Proxy: Jean Claude Louieor, friend Dispo: Home likely on 07/14. Quality VTE Deep Vein Thrombosis/Pulmonary Embolism Present on Admission: No
[2022-07-13] MEDS: cefTRIAXone 1,000 MG in SODIUM CHLORIDE 0.9% 100 ML 200 MG IV (17:33)
[2022-07-13] MEDS: AZITHROMYCIN 500 MG in DEXTROSE 5% IN WATER 250 ML 250 MG IV (17:34)
--- NOTE | 2022-07-13 19:32 | PC.NURSE ---
Pt has not been is respiratory distress, or required increased oxygenation this shift; has refused shower
[2022-07-14 04:45] VITALS: BP 134/71; PULSE 89; RESP 18; TEMP 36.4; O2SAT 95
[2022-07-14 05:27] LABS: Add Manual Diff / Slide Review NO; Basophils Absolute Auto 0 /uL (0-100); Basophils Percent Auto 0.1 % (0-2); Eosinophils Absolute Auto 0 /uL (0-450); Hematocrit 41.5 % (41-53); Hemoglobin 13.8 g/dL (13.5-17.5); Lymphocytes Absolute Auto 800 /uL (1100-4500); Lymphocytes Percent Auto 6.6 % (25-40); Mean Corpuscular HGB Conc 33.3 % (30-36); Mean Corpuscular Hemoglobin 30.8 PG (26-34); Mean Corpuscular Volume 92.5 fL (80-100); Monocytes Absolute Auto 700 /uL (0-900); Monocytes Percent Auto 5.8 % (3-14); Neutrophils Absolute Auto 10000 /uL (1500-7000); Neutrophils Percent Auto 87.5 % (50-75); Platelet Count 332 X10^3/uL (150-400); Red Blood Cell Count 4.48 X10^6/uL (4.5-5.9); Red Cell Distribution Width 13.8 % (11.6-14.8); White Blood Cell Count 11.5 X10^3/uL (4.5-11.0)
[2022-07-14 05:31] LABS: BUN Creatinine Ratio 31.4 (6-22); Blood Urea Nitrogen 16 mg/dL (9-20); Calcium 8.8 mg/dL (8.4-10.2); Carbon Dioxide 36 mmol/L (22-32); Chloride 98 mmol/L (98-107); Estimated Glomerular Filt Rate > 60 mL/min (>60); Glucose 133 mg/dL (80-110); HEMOLYSIS < 15 (0-50); Potassium 4.3 mmol/L (3.4-5.1); Sodium 138 mmol/L (137-145)
[2022-07-14] MEDS: ALBUTEROL/IPRATROPIUM 3 ML AMPUL INH ×2 (07:45→11:12)
[2022-07-14 07:49] VITALS: O2SAT 96
[2022-07-14 08:00] VITALS: BP 147/82; PULSE 87; RESP 14; TEMP 36.7; O2SAT 97
[2022-07-14] MEDS: methylPREDNISolone 125 MG/2 ML VIAL 60 MG IV (08:15)
[2022-07-14] MEDS: ASPIRIN EC 81 MG TABLET PO (09:23)
[2022-07-14] MEDS: ENOXAPARIN 40 MG/0.4 ML SYRINGE SUBCUT (09:23)
[2022-07-14] MEDS: FOLIC ACID 1 MG TABLET PO (09:23)
[2022-07-14] MEDS: THIAMINE 100 MG TABLET PO (09:23)
[2022-07-14] MEDS: MULTIVITAMIN 1 TABLET 1 TAB PO (09:23)
[2022-07-14] MEDS: SODIUM CHLORIDE 0.9% FLUSH 10 ML IV (09:24)
[2022-07-14 11:14] VITALS: PULSE 96; RESP 24; O2SAT 96
[2022-07-14 12:00] VITALS: BP 123/61; PULSE 102; RESP 20; TEMP 36.7; O2SAT 92
--- NOTE | 2022-07-14 14:50 | PC.NURSE ---
1415--pt discharged home on o2/2l/nc; escorted to private vehicle via w/c; all belongings sent w/ pt
--- NOTE | 2022-07-14 15:17 | P.DS_ITS ---
History of Present Illness History of Present Illness Date Patient Seen: 07/11/22 Time Patient Seen: 19:30 Chief complaint: Weakness Narrative: Mr. Rivera is a 72M with PMH COPD, smoker, carotid stenosis, alcohol use who presents to the hospital with weakness and shortness of breath. He lives on [address] of the [facility]. He has inconsistent access to electricity and has been recommended to use oxygen in the past, he has a concentrator, but can not always utilized it due to needing to use a generator. He has had three days of cough, nonproductive, chills, and shortness of breath. He continues to smoke, but less than previously. In the ED workup was done and vitals notable for afebrile, heart rate in the 90s, respiratory rate in the 20s, blood pressure 160s/90s. Sats in the 80s when EMS arrived. He was placed on 6L oxygen initially. Labs reviewed by me and ublado brice for WBC 8.4, hgb 15.0, plts 298. Na 127, k 5.6 (hemolyzed specimen), creatinine 0.46. Lactate 1.4, bili 1.3. BNP 533. Trop negative. Procal 0.05. COVID, flu, and RSV negative. Chest xray reviewed by me an notable for inflated lungs and interstitial infiltrate. He was ordered for nebs, steroids, and antibiotics and admitted for further treatment. Discharge Providers Provider Date of admission: 07/11/22 18:48 Discharge Date: 07/14/22 Primary care physician: Jean Claude Potter DO Discharge provider: Grady Villarreal DO Summary Hospital Course Discharge Diagnosis: 1. Acute on chronic hypoxemic respiratory failure due to COPD exacerbation -patient with cough, hypoxic to the 80s, wheezing on arrival to ED -etiology most likely copd exacerbation -also possibility of pneumonia, though less likely bacterial given neg procal, possibly has viral process with xray showing interstitial abnormalities -given severe baseline lung disease will treat cautiously and start IV antibiotics with IV ceftriaxone, azithromycin -started nebs, IV solumedrol 60mg TID -weaned to 2L NC at rest -discharged on po prednisone 60mg daily with 6 day taper 2. Active smoker -patient still smokes but says he has cut way down -nicotine patch 3. EtOH abuse -not currently withdrawing, low risk for severe withdrawal -CIWA precautions -MVI, thiamine, folate -ativan prn for withdrawal 4. Spiculated lung nodule -known to patient, I have personally encouraged follow up previously -follow up as outpatient if within goals of care of patient 5. Carotid artery stenosis -noted previously to have vertebral artery plaque -continue aspirin/statin -may be referred to vascular if he is interesting in intervention Hospital Course: Admitted for COPD exacerbation and improved with IV solumedrol. Weaned from 5L NC initially to 2L NC at rest. Put on IV abx while admitted. Discharged on po prednisone 60mg daily with taper. Time Spent with Patient Time spent: Greater than 30 minutes Exam Vital Signs (past 8 hours): - 07/14/22 07:49 07/14/22 08:00 07/14/22 11:14 Temperature 98.0 F Pulse Rate 87 96 H Respiratory Rate 14 24 Blood Pressure 147/82 H Pulse Oximetry 96 97 96 Oxygen Delivery Method Nasal Cannula Nasal Cannula Oxygen Flow Rate 2 2 2 07/14/22 12:00 Temperature 98.1 F Pulse Rate 102 H Respiratory Rate 20 Blood Pressure 123/61 Pulse Oximetry 92 Oxygen Delivery Method Oxygen Flow Rate 2 Fraction of Inspired Oxygen 40 SaO2/FiO2 Ratio 235 Oxygen Delivery Method Nasal Cannula Oxygen Flow Rate 2 Narrative Exam Narrative: GEN: eduntulous disheveled male who has conversational dyspnea HEENT: moist mucous membranes, PERRL NECK: trachea midline, no JVD PULM: scattered expiratory wheezes are improving, poor air movement CV: regular rate and rhythm, no murmurs ABD: soft, nontender, nondistended, no organomegaly EXT: warm and well perfused with no edema NEURO: awake, alert, oriented, no focal deficits Objective Labs 07/14/22 04:20 07/14/22 04:20 Labs: Laboratory Results - last 24 hr 07/14/22 07/14/22 04:20 04:20 WBC 11.5 H RBC 4.48 L Hgb 13.8 Hct 41.5 MCV 92.5 MCH 30.8 MCHC 33.3 RDW 13.8 Plt Count 332 Neut % (Auto) 87.5 H Lymph % (Auto) 6.6 L [place] % (Auto) 5.8 Eos % (Auto) 0.0 L Baso % (Auto) 0.1 Neut # (Auto) 95256 H Lymph # (Auto) 800 L [place] # (Auto) 700 Eos # (Auto) 0 Baso # (Auto) 0 Sodium 138 Potassium 4.3 Chloride 98 Carbon Dioxide 36 H BUN 16 Creatinine 0.51 L Estimated GFR > 60 BUN/Creatinine Ratio 31.4 H Glucose 133 H Calcium 8.8 PFSH Medical History Acute bronchitis Alcohol dependence Atypical ductal hyperplasia of right breast Chronic cough (2017) Depression End stage COPD Fractures (Unknown) Incidental lung nodule, > 3mm and < 8mm Partial blindness (Unknown) Schizophrenia (Unknown) Substance abuse (Unknown) Tobacco use Surgical History History of open reduction and internal fixation (ORIF) procedure (Unknown) Hx of hernia repair Social History household members: none Smoking Status: Current every day smoker Tobacco: How many years used: 45 quit status: considering quitting second hand exposure: Yes alcohol intake: current substance use type: does not use Discharge Plan Discharge Plan Patient Disposition: Home Discharge orders & Medications Prescriptions: New prednisone 20 mg tablet See Rx Instructions .ROUTE .COMPLEX Qty: 12 0RF Rx Instructions: 60 mg (3 pills) daily for 2 days, then 40 mg (2 pills) daily for 2 days, then 20mg (1 pill) daily for 2 days then stop Continued albuterol sulfate [ProAir HFA] 90 mcg/actuation HFA aerosol inhaler 2 puff INHALATION QID PRN (Reason: shortness of breath or wheezing) Qty: 8.5 1RF Combivent Respimat 20-100 mcg/actuation mist 1 puff inhalation Q4H Qty: 4 1RF (DME) O2 Concentrator See Rx Instructions .Route .MEDSUPPLY Qty: 1 0RF Rx Instructions: Use to administer 2L continuous O2. (DME) Nasal Canula/Tubing See Rx Instructions .Route .MEDSUPPLY Qty: 1 12RF Rx Instructions: Use to administer 2L continuous O2 Follow up/Referrals: Jean Claude Potter, [Primary Care Provider] - 2 Weeks Diet/Activity/Treatments Diet: Diet as Tolerated and Regular Activity: as tolerated Oxygen: o2 to keep sat >88% Discharge Data Primary Care Provider: Jean Claude Potter Discharges patient from system. Discharge Date/Time: 04/16/23 14:15 Quality VTE Deep Vein Thrombosis/Pulmonary Embolism Present on Admission: No
--- NOTE | 2022-07-14 15:49 | PC.NURSE ---
0955--pt ambulated in the [facility] with a walker and on room air; increased SOB on exertion; o2 sat dropped to 80%; pt returned to room and placed back on 2l/nc and o2 sat recovered to >90%; Dr Villarreal notified and came and spoke w/ pt regarding discharge today
== END 2022-07-14 14:15 | disposition home or self-care (01) | DRG 190 ==
LOC: ED 18:32 → AC 18:48
PROVIDERS: Internal Medicine; Admitting Provider Student in an Organized Health Care Education/Training Program; Emergency Provider Emergency Medicine; PCP Family Medicine; Referring Provider Emergency Medicine; Visit Provider Student in an Organized Health Care Education/Training Program
DX: J44.1 Chronic obstructive pulmonary disease with (acute) exacerbation (principal); J96.21 Acute and chronic respiratory failure with hypoxia; F17.210 Nicotine dependence, cigarettes, uncomplicated; F10.10 Alcohol abuse, uncomplicated; I65.29 Occlusion and stenosis of unspecified carotid artery; Y90.0 Blood alcohol level of less than 20 mg/100 ml; Z66 Do not resuscitate; Z20.822 Contact with and (suspected) exposure to COVID-19
CPT/HCPCS: 0241U; 36415; 36600; 71045; 80048; 80053; 80320; 81001; 82550; 82553; 82805; 83605; 83690; 83735; 83880; 84132; 84145; 84484; 85025; 85379; 85610; 87040; 93005; 93010; 94640; 94760; 94762; 96365; 96375; 99285; J0696; J1650; J2930

== ENCOUNTER 2023-03-05 16:33 | Inpatient (IN) | payer MEDICARE, MEDICAID, SELFPAY ==
[2022-07-12 02:24] VITALS: BMI 20.5
[2023-03-05] VITALS (43 sets, daily range): BP systolic 72–121; BP diastolic 51–69; PULSE 70–93; RESP 19–62; TEMP 36.4; O2SAT 86–99; BMI 19.8; BMI 19.5
--- NOTE | 2023-03-05 16:44 | DI.RAD.S_ITS ---
PROCEDURE: XR CHEST 1V INDICATIONS: Shortness of breath TECHNIQUE: One view of the chest was acquired. COMPARISON: [facility], CR, XR CHEST 1V, 07/11/2022, 18:00. FINDINGS: Surgical changes and devices: None. Lungs and pleura: There is hyperinflation and chronic interstitial changes without focal infiltrate, pleural effusion or pneumothorax. Mediastinum: Mediastinal contours appear normal. Heart size is normal. Atherosclerotic vascular calcification noted in the aortic arch. Bones and chest wall: No suspicious bony lesions. Overlying soft tissues appear unremarkable. IMPRESSION: There is hyperinflation and chronic interstitial changes without focal infiltrate, pleural effusion or pneumothorax. Approved by: Tereso Lopez M.D. on 03/05/2023 at 17:07
[2023-03-05] MEDS: ALBUTEROL/IPRATROPIUM 3 ML AMPUL 6 ML INH (16:55)
--- NOTE | 2023-03-05 16:58 | ED.SOB ---
HPI - SOB/Dyspnea <Sunday Bhakta DO - Last Filed: 03/06/23 09:35> General Chief Complaint: Shortness of Breath/Dyspnea Stated Complaint: blurry vison T-0 low O2 level Time Seen by Provider: 03/05/23 16:57 Source: patient Mode of arrival: Wheelchair History of Present Illness HPI Narrative: 72-year-old male smoker with history of COPD presents for evaluation of increasing shortness of breath over the past few hours and blurred vision. He denies any trauma or injury, no fever or chills. He denies any dizziness or lightheadedness nor any numbness, tingling or weakness of his extremities. He denies double vision or eye pain. He states that both eyes are blurry, he does not wear contacts or glasses. Additionally he states he is short of breath and with minimal exertion he becomes more short of breath, he does not use oxygen at. Denies runny nose, sore or cough. Denies lower extremity pain, swelling or redness Related Data Previous Rx's Medication Instructions Recorded Nasal Canula/Tubing #1 ea 04/30/21 O2 Concentrator #1 ea 04/30/21 albuterol sulfate 90 mcg/actuation 2 puff inhalation QID PRN 02/05/23 aerosol inhaler (ProAir HFA) shortness of breath or wheezing #8.5 grams ipratropium 20 mcg-albuterol 100 1 puff inhalation Q4H #4 grams 02/05/23 mcg/actuation mist for inhalation (Combivent Respimat) Allergies Allergy/AdvReac Type Severity Reaction Status Date / Time No Known Drug Allergies Allergy Verified 07/25/22 14:11 Review of Systems <Sunday Bhakta DO - Last Filed: 03/06/23 09:35> Review of Systems Narrative: GENERAL: Denies chills, fatigue, malaise, fever, sweats. HEENT: Denies sinus pain, ear pain, sore throat, difficulty swallowing, dizziness. RESPIRATORY: See HPI CARDIOVASCULAR: See HPI GASTROINTESTINAL: Denies nausea, vomiting, abdominal pain, diarrhea, constipation, melena. : Denies dysuria, frequency, incontinence, hematuria, urinary retention. MUSCULOSKELETAL: denies weakness, joint pain, or bony pain SKIN: Denies rash, skin lesions, or other NEUROLOGIC: See HPI PSYCHIATRIC: No concerning psychosocial issues. 12 point review of systems is negative except for those stated above Patient History <Sunday Bhakta DO - Last Filed: 03/06/23 09:35> Medical History Well adult exam Medicare annual wellness visit, subsequent Eyelid lesion, benign Seborrheic keratoses End stage COPD Depression Tobacco use Alcohol dependence Incidental lung nodule, > 3mm and < 8mm Atypical ductal hyperplasia of right breast Acute bronchitis Chronic cough (2017) Fractures (Unknown) Schizophrenia (Unknown) Substance abuse (Unknown) Partial blindness (Unknown) Surgical History Hx of hernia repair History of open reduction and internal fixation (ORIF) procedure (Unknown) Social History household members: none Smoking Status: Current every day smoker Tobacco: How many years used: 45 quit status: considering quitting second hand exposure: Yes alcohol intake: current substance use type: does not use Smoking Status: Current every day smoker tobacco type: cigarettes alcohol intake frequency: 3 or more drinks per day Alcohol type: beer Substance Use Type: marijuana Exam <Sunday Bhakta DO - Last Filed: 03/06/23 09:35> Narrative Exam Narrative: GENERAL: [72] year old patient appears stated age. Well-developed patient, in mild distress. HEAD: Atraumatic. Normocephalic. EYES: Pupils equal round and reactive. Extraocular motions intact. No scleral icterus. No injection or drainage. ENT: Nose without bleeding, purulent drainage. Throat without erythema, tonsillar hypertrophy or exudate. Airway patent. NECK: Trachea midline. Non tender CARDIOVASCULAR: Regular rate and rhythm without murmurs, gallops, or rubs. RESPIRATORY: Increased work of breathing with hypoxemia at room air, decreased breath sounds throughout with prolonged expiratory phase and expiratory wheeze throughout GASTROINTESTINAL: Abdomen soft, non-tender, nondistended. EXTREMITIES: No edema or joint tenderness. BACK: Nontender without deformity or crepitance. No flank tenderness. NEURO: AOx3. SKIN: No rash or erythema of visible areas Initial Vital Signs Initial Vital Signs: Vital Signs Temperature 97.6 F 03/05/23 16:35 Pulse Rate 70 03/05/23 16:35 Respiratory Rate 24 03/05/23 16:35 Blood Pressure 121/55 L 03/05/23 16:35 Pulse Oximetry 86 L 03/05/23 16:35 Oxygen Delivery Method Room Air 03/05/23 16:35 <Caitlyn Valencia MD - Last Filed: 03/05/23 23:33> Initial Vital Signs Initial Vital Signs: Vital Signs Temperature 97.6 F 03/05/23 16:35 Pulse Rate 70 03/05/23 16:35 Respiratory Rate 24 03/05/23 16:35 Blood Pressure 121/55 L 03/05/23 16:35 Pulse Oximetry 86 L 03/05/23 16:35 Oxygen Delivery Method Room Air 03/05/23 16:35 Course <Sunday Bhakta DO - Last Filed: 03/06/23 09:35> Orders Ordered: Acetaminophen (Acetaminophen 325 Mg Tablet) 650 mg PO Q6H PRN PRN Reason: Fever/Mild Pain (1-3) Albuterol/Ipratropium (Albuterol/Ipratropium 3 Ml Ampul) 3 ml INH RTQ4HR [facility] Last Admin: 03/06/23 07:36 Dose: 3 ml Documented By: Admin: 03/06/23 06:22 Dose: Not Given Documented By: Admin: 03/05/23 23:18 Dose: Not Given Documented By: JO-ANN Albuterol/Ipratropium (Albuterol/Ipratropium 3 Ml Ampul) 3 ml INH RTQ4HR PRN PRN Reason: Shortness Of Breath Azithromycin (Azithromycin 250 Mg Tablet) 250 mg PO DAILY [facility] Stop: 03/09/23 09:01 Last Admin: 03/06/23 09:12 Dose: 250 mg Documented By: KRISTEL Budesonide (Budesonide 0.5 Mg/2 Ml Neb) 0.5 mg INH RTBID [facility] Last Admin: 03/06/23 07:36 Dose: 0.5 mg Documented By: AMANDA Enoxaparin Sodium (Enoxaparin 40 Mg/0.4 Ml Syringe) 40 mg SUBCUT DAILY [facility] Last Admin: 03/06/23 09:12 Dose: 40 mg Documented By: KRISTEL Sodium Chloride (Normal Saline 0.9%) 1,000 mls @ 70 mls/hr IV CONT [facility] Last Admin: 03/05/23 23:07 Dose: 70 mls/hr Documented By: Ceftriaxone Sodium 1,000 mg/ (Sodium Chloride) 100 mls @ 200 mls/hr IV Q24H [facility] Stop: 03/09/23 09:49 Methylprednisolone (Methylprednisolone 40 Mg/Ml Vial) 40 mg IV Q8HR [facility] Last Admin: 03/06/23 06:18 Dose: 40 mg Documented By: Midodrine (Midodrine Hcl 5 Mg Tablet) 10 mg PO 0600,1200,1800 [facility] Stop: 03/06/23 11:00 Last Admin: 03/06/23 06:18 Dose: 10 mg Documented By: Naloxone HCl (Naloxone 0.4 Mg/Ml Vial) 0.2 mg IV Q2MIN PRN PRN Reason: Opiate Reversal Nicotine (Nicotine 14 Patch) 14 mg TOP DAILY [facility] Last Admin: 03/06/23 09:28 Dose: Not Given Documented By: Admin: 03/06/23 09:17 Dose: Not Given Documented By: KRISTEL Oxycodone HCl (Oxycodone Ir 5 Mg Tablet) 5 mg PO Q3H PRN PRN Reason: Pain, Moderate (4-6) Pantoprazole Sodium (Pantoprazole Dr 40 Mg Tablet) 40 mg PO 0700 [facility] Last Admin: 03/06/23 07:57 Dose: 40 mg Documented By: KRISTEL Thiamine HCl (Thiamine 100 Mg Tablet) 100 mg PO DAILY [facility] Last Admin: 03/06/23 09:12 Dose: 100 mg Documented By: KRISTEL Discontinued Medications Acetaminophen (Acetaminophen 325 Mg Tablet) 650 mg PO Q6H [facility] Albuterol (Albuterol 2.5 Mg/3 Ml Neb (Adult)) 10 mg INH NOW ONE Stop: 03/05/23 17:25 Last Admin: 03/05/23 17:53 Dose: 10 mg Documented By: RAO Albuterol (Albuterol Hfa Mdi 60 Puff/8 Gm Inhaler) 2 puff INH QID PRN PRN Reason: shortness of breath or wheezing Albuterol/Ipratropium (Albuterol/Ipratropium 3 Ml Ampul) 6 ml INH NOW ONE Stop: 03/05/23 16:53 Last Admin: 03/05/23 16:55 Dose: 6 ml Documented By: RAO Sodium Chloride (Normal Saline 0.9%) 1,000 mls @ 1,000 mls/hr IV BOLUS ONE Stop: 12/06/23 19:25 Last Infusion: 03/05/23 19:59 Dose: Infused Documented By: Admin: 03/05/23 18:45 Dose: 1,000 mls/hr Documented By: LALIE Ceftriaxone Sodium 1,000 mg/ (Sodium Chloride) 100 mls @ 200 mls/hr IV NOW ONE Stop: 03/05/23 18:51 Last Infusion: 03/05/23 19:34 Dose: Infused Documented By: Admin: 03/05/23 19:04 Dose: 200 mls/hr Documented By: ALLIE Azithromycin 500 mg/ Dextrose 250 mls @ 250 mls/hr IV NOW ONE Stop: 03/05/23 18:51 Last Infusion: 03/05/23 21:01 Dose: Infused Documented By: Admin: 03/05/23 19:54 Dose: 250 mls/hr Documented By: ALLIE Sodium Chloride (Normal Saline 0.9%) 1,000 mls @ 1,000 mls/hr IV BOLUS ONE Stop: 03/05/23 21:22 Last Admin: 03/05/23 20:26 Dose: 1,000 mls/hr Documented By: ALLIE Ceftriaxone Sodium 1,000 mg/ (Sodium Chloride) 100 mls @ 200 mls/hr IV Q24H [facility] Sodium Chloride (Normal Saline 0.9%) 250 mls @ 1,000 mls/hr IV BOLUS ONE Stop: 03/06/23 06:30 Last Admin: 03/06/23 06:46 Dose: 1,000 mls/hr Documented By: Methylprednisolone (Methylprednisolone 125 Mg/2 Ml Vial) 125 mg IV NOW ONE Stop: 03/05/23 17:01 Last Admin: 03/05/23 17:14 Dose: 125 mg Documented By: DRE Midodrine (Midodrine Hcl 5 Mg Tablet) 5 mg PO 0600,1200,1800 ONE Stop: 03/06/23 03:13 Last Admin: 03/06/23 03:22 Dose: 5 mg Documented By: Ondansetron HCl (Ondansetron 4 Mg/2 Ml Inj) 4 mg IV Q8HR PRN PRN Reason: Nausea And Vomiting Vital Signs Vital signs: Vital Signs - 8 hr 03/05/23 16:35 03/05/23 16:50 03/05/23 16:53 Temperature 97.6 F Pulse Rate 70 92 H 88 Respiratory Rate 24 Blood Pressure 121/55 L Pulse Oximetry 86 L 90 L Oxygen Delivery Method Room Air Oxygen Flow Rate Fraction of Inspired Oxygen 03/05/23 16:54 03/05/23 17:00 03/05/23 17:30 Temperature Pulse Rate 84 83 81 Respiratory Rate 35 H 23 24 Blood Pressure Pulse Oximetry 91 99 96 Oxygen Delivery Method Nasal Cannula Oxygen Flow Rate 4 Fraction of Inspired Oxygen 36 03/05/23 17:33 03/05/23 17:53 03/05/23 18:00 Temperature Pulse Rate 83 84 Respiratory Rate 24 22 Blood Pressure 121/55 L 91/62 Pulse Oximetry 96 92 Oxygen Delivery Method Heated High Flow Oxygen Flow Rate 30 Fraction of Inspired Oxygen 28 03/05/23 18:00 03/05/23 18:10 03/05/23 18:10 Temperature Pulse Rate 80 83 Respiratory Rate 22 29 H Blood Pressure 89/62 L Pulse Oximetry 93 94 Oxygen Delivery Method Heated High Flow High Flow Nasal Cannula Oxygen Flow Rate 30 30 Fraction of Inspired Oxygen 03/05/23 18:11 03/05/23 18:11 03/05/23 18:14 Temperature Pulse Rate 82 Respiratory Rate 20 Blood Pressure 92/62 93/62 Pulse Oximetry 92 Oxygen Delivery Method Oxygen Flow Rate Fraction of Inspired Oxygen 03/05/23 18:14 03/05/23 18:20 03/05/23 18:20 Temperature Pulse Rate 83 84 Respiratory Rate 24 23 Blood Pressure 92/65 Pulse Oximetry 93 93 Oxygen Delivery Method Oxygen Flow Rate Fraction of Inspired Oxygen 03/05/23 18:25 03/05/23 18:30 03/05/23 18:30 Temperature Pulse Rate 82 85 Respiratory Rate 24 21 Blood Pressure 89/62 L 96/69 Pulse Oximetry 92 94 Oxygen Delivery Method Oxygen Flow Rate Fraction of Inspired Oxygen 03/05/23 18:40 03/05/23 18:40 03/05/23 18:50 Temperature Pulse Rate 84 Respiratory Rate 24 Blood Pressure 88/60 L 91/61 Pulse Oximetry 93 Oxygen Delivery Method Oxygen Flow Rate Fraction of Inspired Oxygen 03/05/23 18:50 03/05/23 19:00 03/05/23 19:00 Temperature Pulse Rate 82 79 Respiratory Rate 25 H 23 Blood Pressure 94/65 Pulse Oximetry 93 93 Oxygen Delivery Method Oxygen Flow Rate Fraction of Inspired Oxygen 03/05/23 19:10 03/05/23 19:10 03/05/23 19:20 Temperature Pulse Rate 84 Respiratory Rate 26 H Blood Pressure 98/67 94/64 Pulse Oximetry 94 Oxygen Delivery Method Oxygen Flow Rate Fraction of Inspired Oxygen 03/05/23 19:20 Temperature Pulse Rate 79 Respiratory Rate 22 Blood Pressure Pulse Oximetry 93 Oxygen Delivery Method Oxygen Flow Rate Fraction of Inspired Oxygen <Caitlyn Valencia MD - Last Filed: 03/05/23 23:33> Orders Ordered: Acetaminophen (Acetaminophen 325 Mg Tablet) 650 mg PO Q6H PRN PRN Reason: Fever/Mild Pain (1-3) Albuterol/Ipratropium (Albuterol/Ipratropium 3 Ml Ampul) 3 ml INH RTQ4HR [facility] Last Admin: 03/06/23 07:36 Dose: 3 ml Documented By: Admin: 03/06/23 06:22 Dose: Not Given Documented By: Admin: 03/05/23 23:18 Dose: Not Given Documented By: JO-ANN Albuterol/Ipratropium (Albuterol/Ipratropium 3 Ml Ampul) 3 ml INH RTQ4HR PRN PRN Reason: Shortness Of Breath Azithromycin (Azithromycin 250 Mg Tablet) 250 mg PO DAILY [facility] Stop: 03/09/23 09:01 Last Admin: 03/06/23 09:12 Dose: 250 mg Documented By: KRISTEL Budesonide (Budesonide 0.5 Mg/2 Ml Neb) 0.5 mg INH RTBID [facility] Last Admin: 03/06/23 07:36 Dose: 0.5 mg Documented By: AMANDA Enoxaparin Sodium (Enoxaparin 40 Mg/0.4 Ml Syringe) 40 mg SUBCUT DAILY [facility] Last Admin: 03/06/23 09:12 Dose: 40 mg Documented By: KRISTEL Sodium Chloride (Normal Saline 0.9%) 1,000 mls @ 70 mls/hr IV CONT [facility] Last Admin: 03/05/23 23:07 Dose: 70 mls/hr Documented By: Ceftriaxone Sodium 1,000 mg/ (Sodium Chloride) 100 mls @ 200 mls/hr IV Q24H [facility] Stop: 03/09/23 09:49 Methylprednisolone (Methylprednisolone 40 Mg/Ml Vial) 40 mg IV Q8HR [facility] Last Admin: 03/06/23 06:18 Dose: 40 mg Documented By: DR Midodrine (Midodrine Hcl 5 Mg Tablet) 10 mg PO 0600,1200,1800 [facility] Stop: 03/06/23 11:00 Last Admin: 03/06/23 06:18 Dose: 10 mg Documented By: Naloxone HCl (Naloxone 0.4 Mg/Ml Vial) 0.2 mg IV Q2MIN PRN PRN Reason: Opiate Reversal Nicotine (Nicotine 14 Patch) 14 mg TOP DAILY [facility] Last Admin: 03/06/23 09:28 Dose: Not Given Documented By: Admin: 03/06/23 09:17 Dose: Not Given Documented By: KRISTEL Oxycodone HCl (Oxycodone Ir 5 Mg Tablet) 5 mg PO Q3H PRN PRN Reason: Pain, Moderate (4-6) Pantoprazole Sodium (Pantoprazole Dr 40 Mg Tablet) 40 mg PO 0700 [facility] Last Admin: 03/06/23 07:57 Dose: 40 mg Documented By: KRISTEL Thiamine HCl (Thiamine 100 Mg Tablet) 100 mg PO DAILY [facility] Last Admin: 03/06/23 09:12 Dose: 100 mg Documented By: KRISTEL Discontinued Medications Acetaminophen (Acetaminophen 325 Mg Tablet) 650 mg PO Q6H [facility] Albuterol (Albuterol 2.5 Mg/3 Ml Neb (Adult)) 10 mg INH NOW ONE Stop: 03/05/23 17:25 Last Admin: 03/05/23 17:53 Dose: 10 mg Documented By: RAO Albuterol (Albuterol Hfa Mdi 60 Puff/8 Gm Inhaler) 2 puff INH QID PRN PRN Reason: shortness of breath or wheezing Albuterol/Ipratropium (Albuterol/Ipratropium 3 Ml Ampul) 6 ml INH NOW ONE Stop: 03/05/23 16:53 Last Admin: 03/05/23 16:55 Dose: 6 ml Documented By: RAO Sodium Chloride (Normal Saline 0.9%) 1,000 mls @ 1,000 mls/hr IV BOLUS ONE Stop: 03/05/23 19:25 Last Infusion: 03/05/23 19:59 Dose: Infused Documented By: Admin: 03/05/23 18:45 Dose: 1,000 mls/hr Documented By: ALLIE Ceftriaxone Sodium 1,000 mg/ (Sodium Chloride) 100 mls @ 200 mls/hr IV NOW ONE Stop: 03/05/23 18:51 Last Infusion: 03/05/23 19:34 Dose: Infused Documented By: Admin: 03/05/23 19:04 Dose: 200 mls/hr Documented By: ALLIE Azithromycin 500 mg/ Dextrose 250 mls @ 250 mls/hr IV NOW ONE Stop: 03/05/23 18:51 Last Infusion: 03/05/23 21:01 Dose: Infused Documented By: Admin: 03/05/23 19:54 Dose: 250 mls/hr Documented By: ALLIE Sodium Chloride (Normal Saline 0.9%) 1,000 mls @ 1,000 mls/hr IV BOLUS ONE Stop: 03/05/23 21:22 Last Admin: 03/05/23 20:26 Dose: 1,000 mls/hr Documented By: ALLIE Ceftriaxone Sodium 1,000 mg/ (Sodium Chloride) 100 mls @ 200 mls/hr IV Q24H [facility] Sodium Chloride (Normal Saline 0.9%) 250 mls @ 1,000 mls/hr IV BOLUS ONE Stop: 03/06/23 06:30 Last Admin: 03/06/23 06:46 Dose: 1,000 mls/hr Documented By: Methylprednisolone (Methylprednisolone 125 Mg/2 Ml Vial) 125 mg IV NOW ONE Stop: 03/05/23 17:01 Last Admin: 03/05/23 17:14 Dose: 125 mg Documented By: DRE Midodrine (Midodrine Hcl 5 Mg Tablet) 5 mg PO 0600,1200,1800 ONE Stop: 03/06/23 03:13 Last Admin: 03/06/23 03:22 Dose: 5 mg Documented By: Ondansetron HCl (Ondansetron 4 Mg/2 Ml Inj) 4 mg IV Q8HR PRN PRN Reason: Nausea And Vomiting Vital Signs Vital signs: Vital Signs - 8 hr 03/05/23 16:35 03/05/23 16:50 03/05/23 16:53 Temperature 97.6 F Pulse Rate 70 92 H 88 Respiratory Rate 24 Blood Pressure 121/55 L Pulse Oximetry 86 L 90 L Oxygen Delivery Method Room Air Oxygen Flow Rate Fraction of Inspired Oxygen 03/05/23 16:54 03/05/23 17:00 03/05/23 17:30 Temperature Pulse Rate 84 83 81 Respiratory Rate 35 H 23 24 Blood Pressure Pulse Oximetry 91 99 96 Oxygen Delivery Method Nasal Cannula Oxygen Flow Rate 4 Fraction of Inspired Oxygen 36 03/05/23 17:33 03/05/23 17:53 03/05/23 18:00 Temperature Pulse Rate 83 84 Respiratory Rate 24 22 Blood Pressure 121/55 L 91/62 Pulse Oximetry 96 92 Oxygen Delivery Method Heated High Flow Oxygen Flow Rate 30 Fraction of Inspired Oxygen 28 03/05/23 18:00 03/05/23 18:10 03/05/23 18:10 Temperature Pulse Rate 80 83 Respiratory Rate 22 29 H Blood Pressure 89/62 L Pulse Oximetry 93 94 Oxygen Delivery Method Heated High Flow High Flow Nasal Cannula Oxygen Flow Rate 30 30 Fraction of Inspired Oxygen 03/05/23 18:11 03/05/23 18:11 03/05/23 18:14 Temperature Pulse Rate 82 Respiratory Rate 20 Blood Pressure 92/62 93/62 Pulse Oximetry 92 Oxygen Delivery Method Oxygen Flow Rate Fraction of Inspired Oxygen 03/05/23 18:14 03/05/23 18:20 03/05/23 18:20 Temperature Pulse Rate 83 84 Respiratory Rate 24 23 Blood Pressure 92/65 Pulse Oximetry 93 93 Oxygen Delivery Method Oxygen Flow Rate Fraction of Inspired Oxygen 03/05/23 18:25 03/05/23 18:30 03/05/23 18:30 Temperature Pulse Rate 82 85 Respiratory Rate 24 21 Blood Pressure 89/62 L 96/69 Pulse Oximetry 92 94 Oxygen Delivery Method Oxygen Flow Rate Fraction of Inspired Oxygen 03/05/23 18:40 03/05/23 18:40 03/05/23 18:50 Temperature Pulse Rate 84 Respiratory Rate 24 Blood Pressure 88/60 L 91/61 Pulse Oximetry 93 Oxygen Delivery Method Oxygen Flow Rate Fraction of Inspired Oxygen 03/05/23 18:50 03/05/23 19:00 03/05/23 19:00 Temperature Pulse Rate 82 79 Respiratory Rate 25 H 23 Blood Pressure 94/65 Pulse Oximetry 93 93 Oxygen Delivery Method Oxygen Flow Rate Fraction of Inspired Oxygen 03/05/23 19:10 03/05/23 19:10 03/05/23 19:20 Temperature Pulse Rate 84 Respiratory Rate 26 H Blood Pressure 98/67 94/64 Pulse Oximetry 94 Oxygen Delivery Method Oxygen Flow Rate Fraction of Inspired Oxygen 03/05/23 19:20 Temperature Pulse Rate 79 Respiratory Rate 22 Blood Pressure Pulse Oximetry 93 Oxygen Delivery Method Oxygen Flow Rate Fraction of Inspired Oxygen MDM - SOB/Dyspnea <Sunday Yony, DO - Last Filed: 03/06/23 09:35> Lab Data 03/06/23 03:20 03/06/23 03:20 Labs: Lab Results 03/05/23 03/05/23 03/05/23 Range/Units 17:00 17:14 17:30 WBC 13.7 H (4.5-11.0) X10^3/uL RBC 5.11 (4.5-5.9) X10^6/uL Hgb 15.7 (13.5-17.5) g/dL Hct 47.1 (41-53) % MCV 92.1 (80-100) fL MCH 30.8 (26-34) PG MCHC 33.4 (30-36) % RDW 13.6 (11.6-14.8) % Plt Count 393 (150-400) X10^3/uL Neut % (Auto) 73.1 (50-75) % Lymph % (Auto) 10.3 L (25-40) % [place] % (Auto) 13.3 (3-14) % Eos % (Auto) 2.1 (2-4) % Baso % (Auto) 1.2 (0-2) % Neut # (Auto) 10365 H (6367-6909) /uL Lymph # (Auto) 1400 (9448-8241) /uL [place] # (Auto) 1800 H (0-900) /uL Eos # (Auto) 300 (0-450) /uL Baso # (Auto) 200 H (0-100) /uL PT 12.4 (9.4-12.5) SECONDS INR 1.1 (0.9-1.3) D-Dimer 483 (<500) ng/ml ABG Sample Site Right radial ABG pH 7.38 (7.35-7.45) ABG pCO2 47.9 H (35-45) mmHg ABG pO2 64 L (80-100) mmHg ABG HCO3 28 H (23-27) mmol/L ABG Total CO2 29 H (23-27) mmol/L ABG O2 Saturation 91 L (95-100) % ABG Base Excess 3.0 (-2-3) mmol/L FiO2 28 Sodium 130 L (137-145) mmol/L Potassium 4.6 (3.4-5.1) mmol/L Chloride 93 L (98-107) mmol/L Carbon Dioxide 28 (22-32) mmol/L BUN 9 (9-20) mg/dL Creatinine 0.57 L (0.66-1.25) mg/dL Estimated GFR > 60 (>60) mL/min BUN/Creatinine Ratio 15.8 (6-22) Glucose 93 (80-110) mg/dL Lactate 1.2 (0.7-2.1) mmol/L Calcium 9.6 (8.4-10.2) mg/dL Total Bilirubin 0.8 (0.2-1.3) mg/dL AST 27 (17-59) IU/L ALT 13 (<50) IU/L Alkaline Phosphatase 80 (38-126) U/L Troponin I < 0.012 (0.01-0.034) ng/mL NT-Pro-B Natriuret Pep 561 H (<125) pg/mL Total Protein 7.4 (6.3-8.2) g/dL Albumin 4.1 (3.5-5.0) g/dL Globulin 3.3 (1.7-4.1) g/dL Albumin/Globulin Ratio 1.2 (1.0-2.8) Procalcitonin 0.05 (<0.5) ng/mL SARS-CoV-2 (PCR) Negative (Negative) Influenza A (RT-PCR) Flu a negative (NEGATIVE) Influenza B (RT-PCR) Flu b negative (NEGATIVE) RSV (PCR) Negative (Negative) <Caitlyn Valencia MD - Last Filed: 03/05/23 23:33> Differential Diagnosis Differential diagnosis: Likely acute exacerbation of chronic obstructive airways disease, congestive heart failure and community acquired pneumonia Lab Data Labs: Lab Results 03/05/23 03/05/23 03/05/23 Range/Units 17:00 17:14 17:30 WBC 13.7 H (4.5-11.0) X10^3/uL RBC 5.11 (4.5-5.9) X10^6/uL Hgb 15.7 (13.5-17.5) g/dL Hct 47.1 (41-53) % MCV 92.1 (80-100) fL MCH 30.8 (26-34) PG MCHC 33.4 (30-36) % RDW 13.6 (11.6-14.8) % Plt Count 393 (150-400) X10^3/uL Neut % (Auto) 73.1 (50-75) % Lymph % (Auto) 10.3 L (25-40) % [place] % (Auto) 13.3 (3-14) % Eos % (Auto) 2.1 (2-4) % Baso % (Auto) 1.2 (0-2) % Neut # (Auto) 23475 H (9671-8967) /uL Lymph # (Auto) 1400 (8831-6653) /uL [place] # (Auto) 1800 H (0-900) /uL Eos # (Auto) 300 (0-450) /uL Baso # (Auto) 200 H (0-100) /uL PT 12.4 (9.4-12.5) SECONDS INR 1.1 (0.9-1.3) D-Dimer 483 (<500) ng/ml ABG Sample Site Right radial ABG pH 7.38 (7.35-7.45) ABG pCO2 47.9 H (35-45) mmHg ABG pO2 64 L (80-100) mmHg ABG HCO3 28 H (23-27) mmol/L ABG Total CO2 29 H (23-27) mmol/L ABG O2 Saturation 91 L (95-100) % ABG Base Excess 3.0 (-2-3) mmol/L FiO2 28 Sodium 130 L (137-145) mmol/L Potassium 4.6 (3.4-5.1) mmol/L Chloride 93 L (98-107) mmol/L Carbon Dioxide 28 (22-32) mmol/L BUN 9 (9-20) mg/dL Creatinine 0.57 L (0.66-1.25) mg/dL Estimated GFR > 60 (>60) mL/min BUN/Creatinine Ratio 15.8 (6-22) Glucose 93 (80-110) mg/dL Lactate 1.2 (0.7-2.1) mmol/L Calcium 9.6 (8.4-10.2) mg/dL Total Bilirubin 0.8 (0.2-1.3) mg/dL AST 27 (17-59) IU/L ALT 13 (<50) IU/L Alkaline Phosphatase 80 (38-126) U/L Troponin I < 0.012 (0.01-0.034) ng/mL NT-Pro-B Natriuret Pep 561 H (<125) pg/mL Total Protein 7.4 (6.3-8.2) g/dL Albumin 4.1 (3.5-5.0) g/dL Globulin 3.3 (1.7-4.1) g/dL Albumin/Globulin Ratio 1.2 (1.0-2.8) Procalcitonin 0.05 (<0.5) ng/mL SARS-CoV-2 (PCR) Negative (Negative) Influenza A (RT-PCR) Flu a negative (NEGATIVE) Influenza B (RT-PCR) Flu b negative (NEGATIVE) RSV (PCR) Negative (Negative) MDM Narrative Medical decision making narrative: Care of patient is signed out to me by Dr. Lazcano at 6:00 p.m.. Patient is reassessed, he is currently on 30 L high-flow nasal cannula, FiO2 26%, saturating 92-93% on these settings. He states that his vision is still blurred, it has been intermittently blurring for the last several months, but today it lasted longer than usual which prompted his visit to the emergency department. Added Rocephin and azithromycin due to COPD exacerbation in patient with end-stage COPD. Had brief episode of hypotension, corrected with IV fluid bolus. Uncertain etiology of blurred vision, however CT brain is negative and symptoms have been ongoing intermittently for months. Chief concern at this time is patient's hypoxia and COPD exacerbation. ABG reviewed. Admitted for further treatment. Patient expressed his desire to be DNR status, this was reflected in code status ordered in chart. Critical Care Time <Caitlyn Valencia MD - Last Filed: 03/05/23 23:33> Critical Care Time Critical Care Time: Yes Total Critical Care Time: 37 Attestation: COPD exacerbation with hypoxia requiring high-flow nasal cannula. Hypotension requiring fluid bolus. Discussion of goals of care Discharge Plan Departure Patient Disposition: Admitted As Inpatient Clinical Impression: Acute hypoxemic respiratory failure, Chronic obstructive pulmonary disease with acute exacerbation, Blurred vision, DNR (do not resuscitate) Admit Date/Time: 03/05/23 19:26 Admit Provider: Kervin Villareal
[2023-03-05] MEDS: methylPREDNISolone 125 MG/2 ML VIAL IV (17:14)
[2023-03-05 17:36] LABS: Add Manual Diff / Slide Review NO; Basophils Absolute Auto 200 /uL (0-100); Basophils Percent Auto 1.2 % (0-2); Eosinophils Absolute Auto 300 /uL (0-450); Eosinophils Percent Auto 2.1 % (2-4); Hematocrit 47.1 % (41-53); Hemoglobin 15.7 g/dL (13.5-17.5); Lymphocytes Absolute Auto 1400 /uL (1100-4500); Lymphocytes Percent Auto 10.3 % (25-40); Mean Corpuscular HGB Conc 33.4 % (30-36); Mean Corpuscular Hemoglobin 30.8 PG (26-34); Mean Corpuscular Volume 92.1 fL (80-100); Monocytes Absolute Auto 1800 /uL (0-900); Monocytes Percent Auto 13.3 % (3-14); Neutrophils Absolute Auto 10000 /uL (1500-7000); Neutrophils Percent Auto 73.1 % (50-75); Platelet Count 393 X10^3/uL (150-400); Red Blood Cell Count 5.11 X10^6/uL (4.5-5.9); Red Cell Distribution Width 13.6 % (11.6-14.8); White Blood Cell Count 13.7 X10^3/uL (4.5-11.0)
--- NOTE | 2023-03-05 17:36 | DI.CT.S_ITS ---
PROCEDURE: CT HEAD/BRAIN WO CON INDICATIONS: blurred vision TECHNIQUE: Noncontrast 4.5 mm thick angled axial sections acquired from the foramen magnum to the vertex, with coronal and sagittal reformats. For radiation dose reduction, the following was used: automated exposure control, adjustment of mA and/or kV according to patient size. COMPARISON: [facility], CT, CT ANGIO HEAD AND NECK, 03/11/2022, 21:30. FINDINGS: Image quality: Excellent. CSF spaces: Basal cisterns are patent. No extra-axial fluid collections. Ventricles are normal in size and shape. Brain: No midline shift. No intracranial masses or hemorrhage. Wiley-white matter interface is normal. Skull and face: Calvarium and visualized facial bones are intact, without suspicious lesions. Sinuses: Consult thickening at the maxillary sinuses. Visualized sinuses and mastoids are clear. IMPRESSION: No acute intracranial abnormality identified. Dictated by: Chas Anton M.D. on 03/05/2023 at 18:11 Approved by: Chas Anton M.D. on 03/05/2023 at 18:13
[2023-03-05 17:44] LABS: Allen Test for ABG Passed? Yes, Passed; Blood Gas Collection Site Right Radial; Fractionated Inspired Oxygen 28; HCO3 ABG 28 mmol/L (23-27); Oxygen Saturation ABG 91 % (95-100); PCO2 ABG 47.9 mmHg (35-45); PO2 ABG 64 mmHg (80-100); TCO2 ABG 29 mmol/L (23-27); pH ABG 7.38 (7.35-7.45)
[2023-03-05 17:46] LABS: D Dimer 483 ng/ml (<500)
[2023-03-05 17:48] LABS: Alanine Aminotransferase 13 IU/L (<50); Albumin 4.1 g/dL (3.5-5.0); Albumin Globulin Ratio 1.2 (1.0-2.8); Alkaline Phosphatase 80 U/L (38-126); Aspartate Aminotransferase 27 IU/L (17-59); BUN Creatinine Ratio 15.8 (6-22); Bilirubin Total 0.8 mg/dL (0.2-1.3); Blood Urea Nitrogen 9 mg/dL (9-20); Calcium 9.6 mg/dL (8.4-10.2); Carbon Dioxide 28 mmol/L (22-32); Chloride 93 mmol/L (98-107); Estimated Glomerular Filt Rate > 60 mL/min (>60); Globulin 3.3 g/dL (1.7-4.1); Glucose 93 mg/dL (80-110); HEMOLYSIS 36 (0-50); Potassium 4.6 mmol/L (3.4-5.1); Sodium 130 mmol/L (137-145); Total Protein 7.4 g/dL (6.3-8.2)
[2023-03-05 17:49] LABS: Lactate (Lactic Acid) 1.2 mmol/L (0.7-2.1)
[2023-03-05] MEDS: ALBUTEROL 2.5 MG/3 ML NEB (ADULT) 10 MG INH (17:53)
[2023-03-05 17:59] LABS: NT-proBNP (BNP-Adult 18+) 561 pg/mL (<125)
[2023-03-05 18:00] LABS: INR 1.1 (0.9-1.3); Prothrombin Time 12.4 SECONDS (9.4-12.5); Troponin I < 0.012 ng/mL (0.01-0.034)
[2023-03-05 18:05] LABS: Procalcitonin 0.05 ng/mL (<0.5)
[2023-03-05] MEDS: SODIUM CHLORIDE 0.9% 1,000 ML 1000 ML IV ×2 (18:45→20:26)
[2023-03-05 18:53] LABS: Influenza A - CEPHEID Flu A NEGATIVE (NEGATIVE); Influenza B - CEPHEID Flu B NEGATIVE (NEGATIVE); Respiratory Syncytial Virus Negative (Negative)
[2023-03-05 18:54] LABS: COVID-19 CEPHEID 4-PLEX PCR Negative (Negative)
[2023-03-05] MEDS: cefTRIAXone 1,000 MG in SODIUM CHLORIDE 0.9% 100 ML 200 MG IV (19:04)
[2023-03-05] MEDS: AZITHROMYCIN 500 MG in DEXTROSE 5% IN WATER 250 ML 250 MG IV (19:54)
[2023-03-05] MEDS: SODIUM CHLORIDE 0.9% 1,000 ML 70 ML IV (23:07)
--- NOTE | 2023-03-05 23:18 | PM.HP.1 ---
History of Present Illness History of Present Illness Date Patient Seen: 03/05/23 Chief complaint: blurry vison T-0 low O2 level Narrative: 72 years old male with chronic smoker with a past medical history of COPD, hypertension, carotid stenosis, alcohol use and other medical issues was brought to the emergency room for worsening shortness of breath since the past few hours with blood region. Reports that he has had episodes of blurry vision for the past several months but they eventually resolved. Denies any recent fall or trauma. No dizziness or loss of consciousness. Does have cough which is productive with yellowish mucoid sputum. Denies any chest pain palpitations dizziness or loss of consciousness. Denies any nausea vomiting or abdominal pain. Has oxygen at home which he uses intermittently and not sure that the amount of oxygen that he is on at home. Noted to be tachypneic and hypoxic on arrival needing high flow oxygen at 30 L with FiO2 of 26% to maintain O2 saturation above 89%. Labs revealed a white count of greater than 13,000. Chest x-ray shows chronic interstitial changes with hyperinflation. CT head shows no acute process. Patient was initiated on IV Solu-Medrol with nebulizers/IV Rocephin/Zithromax for possible superimposed acute bronchitis and admitted for further evaluation [facility] Medical History Well adult exam Medicare annual wellness visit, subsequent Eyelid lesion, benign Seborrheic keratoses End stage COPD Depression Tobacco use Alcohol dependence Incidental lung nodule, > 3mm and < 8mm Atypical ductal hyperplasia of right breast Acute bronchitis Chronic cough (2017) Fractures (Unknown) Schizophrenia (Unknown) Substance abuse (Unknown) Partial blindness (Unknown) Surgical History Hx of hernia repair History of open reduction and internal fixation (ORIF) procedure (Unknown) Social History household members: none Smoking Status: Current every day smoker Tobacco: How many years used: 45 quit status: considering quitting second hand exposure: Yes alcohol intake: current substance use type: does not use Meds Home Medications and Allergies Home Medications Medication Instructions Recorded Confirmed Type Nasal Canula/Tubing #1 ea 04/30/21 03/05/23 Rx O2 Concentrator #1 ea 04/30/21 03/05/23 Rx albuterol sulfate 90 mcg/actuation 2 puff inhalation QID PRN 02/05/23 03/05/23 Rx aerosol inhaler (ProAir HFA) shortness of breath or wheezing #8.5 grams ipratropium 20 mcg-albuterol 100 1 puff inhalation Q4H #4 grams 02/05/23 03/05/23 Rx mcg/actuation mist for inhalation (Combivent Respimat) Allergies Allergy/AdvReac Type Severity Reaction Status Date / Time No Known Drug Allergies Allergy Verified 07/25/22 14:11 Review of Systems Review of Systems Narrative: A 12 point review of system is negative unless otherwise stated in the history of present illness Exam Vital Signs (past 8 hours): - 03/05/23 16:35 03/05/23 16:50 03/05/23 16:53 Temperature 97.6 F Pulse Rate 70 92 H 88 Respiratory Rate 24 Blood Pressure 121/55 L Pulse Oximetry 86 L 90 L Oxygen Delivery Method Room Air Oxygen Flow Rate Fraction of Inspired Oxygen 03/05/23 16:54 03/05/23 17:00 03/05/23 17:30 Temperature Pulse Rate 84 83 81 Respiratory Rate 35 H 23 24 Blood Pressure Pulse Oximetry 91 99 96 Oxygen Delivery Method Nasal Cannula Oxygen Flow Rate 4 Fraction of Inspired Oxygen 36 03/05/23 17:33 03/05/23 17:53 03/05/23 18:00 Temperature Pulse Rate 83 84 Respiratory Rate 24 22 Blood Pressure 121/55 L 91/62 Pulse Oximetry 96 92 Oxygen Delivery Method Heated High Flow Oxygen Flow Rate 30 Fraction of Inspired Oxygen 28 03/05/23 18:00 03/05/23 18:10 03/05/23 18:10 Temperature Pulse Rate 80 83 Respiratory Rate 22 29 H Blood Pressure 89/62 L Pulse Oximetry 93 94 Oxygen Delivery Method Heated High Flow High Flow Nasal Cannula Oxygen Flow Rate 30 30 Fraction of Inspired Oxygen 03/05/23 18:11 03/05/23 18:11 03/05/23 18:14 Temperature Pulse Rate 82 Respiratory Rate 20 Blood Pressure 92/62 93/62 Pulse Oximetry 92 Oxygen Delivery Method Oxygen Flow Rate Fraction of Inspired Oxygen 03/05/23 18:14 03/05/23 18:20 03/05/23 18:20 Temperature Pulse Rate 83 84 Respiratory Rate 24 23 Blood Pressure 92/65 Pulse Oximetry 93 93 Oxygen Delivery Method Oxygen Flow Rate Fraction of Inspired Oxygen 03/05/23 18:25 03/05/23 18:30 03/05/23 18:30 Temperature Pulse Rate 82 85 Respiratory Rate 24 21 Blood Pressure 89/62 L 96/69 Pulse Oximetry 92 94 Oxygen Delivery Method Oxygen Flow Rate Fraction of Inspired Oxygen 03/05/23 18:40 03/05/23 18:40 03/05/23 18:50 Temperature Pulse Rate 84 Respiratory Rate 24 Blood Pressure 88/60 L 91/61 Pulse Oximetry 93 Oxygen Delivery Method Oxygen Flow Rate Fraction of Inspired Oxygen 03/05/23 18:50 03/05/23 19:00 03/05/23 19:00 Temperature Pulse Rate 82 79 Respiratory Rate 25 H 23 Blood Pressure 94/65 Pulse Oximetry 93 93 Oxygen Delivery Method Oxygen Flow Rate Fraction of Inspired Oxygen 03/05/23 19:10 03/05/23 19:10 03/05/23 19:20 Temperature Pulse Rate 84 Respiratory Rate 26 H Blood Pressure 98/67 94/64 Pulse Oximetry 94 Oxygen Delivery Method Oxygen Flow Rate Fraction of Inspired Oxygen 03/05/23 19:20 03/05/23 19:30 03/05/23 19:31 Temperature Pulse Rate 79 81 Respiratory Rate 22 25 H Blood Pressure 87/59 L Pulse Oximetry 93 95 Oxygen Delivery Method Oxygen Flow Rate Fraction of Inspired Oxygen 03/05/23 19:31 03/05/23 19:40 03/05/23 19:40 Temperature Pulse Rate 90 77 Respiratory Rate 24 22 Blood Pressure 88/61 L Pulse Oximetry 95 92 Oxygen Delivery Method Oxygen Flow Rate Fraction of Inspired Oxygen 03/05/23 19:50 03/05/23 19:53 03/05/23 19:53 Temperature Pulse Rate 82 89 Respiratory Rate 21 25 H Blood Pressure 97/63 Pulse Oximetry 92 93 Oxygen Delivery Method Oxygen Flow Rate Fraction of Inspired Oxygen 03/05/23 20:00 03/05/23 20:01 03/05/23 20:01 Temperature Pulse Rate 88 87 Respiratory Rate 34 H 26 H Blood Pressure 85/52 L Pulse Oximetry 94 91 Oxygen Delivery Method Oxygen Flow Rate Fraction of Inspired Oxygen 03/05/23 20:08 03/05/23 20:08 03/05/23 20:10 Temperature Pulse Rate 88 Respiratory Rate 33 H Blood Pressure 89/52 L 93/59 L Pulse Oximetry 91 Oxygen Delivery Method Oxygen Flow Rate Fraction of Inspired Oxygen 03/05/23 20:10 03/05/23 20:20 03/05/23 20:20 Temperature Pulse Rate 84 82 Respiratory Rate 29 H 27 H Blood Pressure 76/55 L Pulse Oximetry 91 92 Oxygen Delivery Method Oxygen Flow Rate Fraction of Inspired Oxygen 03/05/23 20:21 03/05/23 20:21 03/05/23 20:26 Temperature Pulse Rate 81 Respiratory Rate 29 H Blood Pressure 73/58 L 85/57 L Pulse Oximetry 92 Oxygen Delivery Method Oxygen Flow Rate Fraction of Inspired Oxygen 03/05/23 20:26 03/05/23 20:30 03/05/23 20:30 Temperature Pulse Rate 88 93 H Respiratory Rate 35 H 62 H Blood Pressure 90/55 L Pulse Oximetry 89 L 89 L Oxygen Delivery Method Oxygen Flow Rate Fraction of Inspired Oxygen 03/05/23 20:40 03/05/23 20:40 03/05/23 20:50 Temperature Pulse Rate 86 90 Respiratory Rate 34 H 31 H Blood Pressure 75/53 L Pulse Oximetry 96 94 Oxygen Delivery Method Oxygen Flow Rate Fraction of Inspired Oxygen 03/05/23 20:50 03/05/23 21:00 03/05/23 21:00 Temperature Pulse Rate 89 Respiratory Rate 32 H Blood Pressure 72/52 L 88/51 L Pulse Oximetry 92 Oxygen Delivery Method Oxygen Flow Rate 30 Fraction of Inspired Oxygen 03/05/23 21:30 03/05/23 21:33 03/05/23 21:34 Temperature Pulse Rate 86 Respiratory Rate 34 H 24 Blood Pressure Pulse Oximetry 94 93 Oxygen Delivery Method Heated High Flow Oxygen Flow Rate 30 Fraction of Inspired Oxygen 30 03/05/23 22:00 03/05/23 22:00 Temperature Pulse Rate 83 Respiratory Rate 28 H Blood Pressure 84/59 L Pulse Oximetry 95 Oxygen Delivery Method Oxygen Flow Rate 30 Fraction of Inspired Oxygen Fraction of Inspired Oxygen 30 SaO2/FiO2 Ratio 328 Oxygen Delivery Method Heated High Flow Oxygen Flow Rate 30 Narrative Exam Narrative: Patient was examined with the help of a video communication device. Able to speak in full sentences. Does appear slightly short of breath. Edema in the lower extremity Objective Labs 03/05/23 17:00 03/05/23 17:00 Labs: Laboratory Results - last 24 hr 03/05/23 03/05/23 03/05/23 17:00 17:14 17:30 WBC 13.7 H RBC 5.11 Hgb 15.7 Hct 47.1 MCV 92.1 MCH 30.8 MCHC 33.4 RDW 13.6 Plt Count 393 Neut % (Auto) 73.1 Lymph % (Auto) 10.3 L [place] % (Auto) 13.3 Eos % (Auto) 2.1 Baso % (Auto) 1.2 Neut # (Auto) 25365 H Lymph # (Auto) 1400 [place] # (Auto) 1800 H Eos # (Auto) 300 Baso # (Auto) 200 H PT 12.4 INR 1.1 D-Dimer 483 ABG Sample Site Right radial ABG pH 7.38 ABG pCO2 47.9 H ABG pO2 64 L ABG HCO3 28 H ABG Total CO2 29 H ABG O2 Saturation 91 L ABG Base Excess 3.0 FiO2 28 Sodium 130 L Potassium 4.6 Chloride 93 L Carbon Dioxide 28 BUN 9 Creatinine 0.57 L Estimated GFR > 60 BUN/Creatinine Ratio 15.8 Glucose 93 Lactate 1.2 Calcium 9.6 Total Bilirubin 0.8 AST 27 ALT 13 Alkaline Phosphatase 80 Troponin I < 0.012 NT-Pro-B Natriuret Pep 561 H Total Protein 7.4 Albumin 4.1 Globulin 3.3 Albumin/Globulin Ratio 1.2 Procalcitonin 0.05 SARS-CoV-2 (PCR) Negative Influenza A (RT-PCR) Flu a negative Influenza B (RT-PCR) Flu b negative RSV (PCR) Negative Assessment & Plan Assessment & Plan narrative: 72 years old male with chronic smoker with a past medical history of COPD, hypertension, carotid stenosis, alcohol use and other medical issues was brought to the emergency room for worsening shortness of breath since the past few hours with blood region. Reports that he has had episodes of blurry vision for the past several months but they eventually resolved. Denies any recent fall or trauma. No dizziness or loss of consciousness. Does have cough which is productive with yellowish mucoid sputum. Denies any chest pain palpitations dizziness or loss of consciousness. Denies any nausea vomiting or abdominal pain. Has oxygen at home which he uses intermittently and not sure that the amount of oxygen that he is on at home. Noted to be tachypneic and hypoxic on arrival needing high flow oxygen at 30 L with FiO2 of 26% to maintain O2 saturation above 89%. Labs revealed a white count of greater than 13,000. Chest x-ray shows chronic interstitial changes with hyperinflation. CT head shows no acute process. Patient was initiated on IV Solu-Medrol with nebulizers/IV Rocephin/Zithromax for possible superimposed acute bronchitis and admitted for further evaluation 1 acute hypoxemic respiratory failure likely multifactorial due to combination of acute COPD exacerbation in the setting of smoking and further complicated by superimposed bronchitis/early pneumonia #2 acute COPD exacerbation #3 acute bronchitis #4 chronic smoker Continue with IV Rocephin/Zithromax initiated in the emergency room and send the sputum for cultures. Continue with IV Solu-Medrol with nebulizers and oxygen supplementation to maintain O2 saturation above 90%. Add inhaled steroids as well. Advised to quit smoking and initiate nicotine patch 5 history of alcohol abuse. Currently not in withdrawal. Monitor for now and add vitamin B1 6. History of carotid artery stenosis. Resume the home aspirin/statin. No focal neurodeficits. 7. Blurred vision. Suspect more of a ophthalmic issue than a central nervous system issue further complicated by underlying hypoxemia. No focal neurodeficits. CT scan of the brain shows no acute process and there is a chronic component as well. Referral to ophthalmology for evaluation in the outpatient setting Goals of care reviewed with the patient. He has requested DNR status to be maintained Patient will be admitted under inpatient status. Given the acute hypoxic respiratory failure with superimposed bronchitis in the setting of productive cough needing IV antibiotics/IV steroids and other intervention, patient meets criteria for inpatient with expected length of stay within the benefits Patient was seen and evaluated with the help of video communication device. Time spent in the assessment is greater than 15 minutes. Location of the provider during the video assessment is [facility] VTE Deep Vein Thrombosis/Pulmonary Embolism Present on Admission: No
[2023-03-05 23:30] LABS: MRSA (Nasal) PCR Not Detected (Not Detect)
[2023-03-06] VITALS (74 sets, daily range): BP systolic 61–101; BP diastolic 42–64; PULSE 18–114; RESP 16–67; TEMP 36.4–37.2; O2SAT 87–98
[2023-03-06] MEDS: MIDODRINE HCL 5 MG TABLET PO (03:22)
[2023-03-06 03:36] LABS: Alanine Aminotransferase 13 IU/L (<50); Albumin 3.1 g/dL (3.5-5.0); Alkaline Phosphatase 53 U/L (38-126); Aspartate Aminotransferase 18 IU/L (17-59); BUN Creatinine Ratio 18.4 (6-22); Bilirubin Total 0.5 mg/dL (0.2-1.3); Blood Urea Nitrogen 9 mg/dL (9-20); Calcium 8.7 mg/dL (8.4-10.2); Carbon Dioxide 27 mmol/L (22-32); Chloride 103 mmol/L (98-107); Estimated Glomerular Filt Rate > 60 mL/min (>60); Glucose 261 mg/dL (80-110); HEMOLYSIS 17 (0-50); Magnesium 1.9 mg/dL (1.6-2.3); Potassium 4.3 mmol/L (3.4-5.1); Sodium 133 mmol/L (137-145); Total Protein 6.1 g/dL (6.3-8.2)
[2023-03-06 03:47] LABS: Add Manual Diff / Slide Review NO; Basophils Absolute Auto 0 /uL (0-100); Basophils Percent Auto 0.4 % (0-2); Eosinophils Absolute Auto 0 /uL (0-450); Hematocrit 41.3 % (41-53); Hemoglobin 13.6 g/dL (13.5-17.5); Lymphocytes Absolute Auto 400 /uL (1100-4500); Lymphocytes Percent Auto 7.9 % (25-40); Mean Corpuscular Hemoglobin 30.3 PG (26-34); Mean Corpuscular Volume 91.8 fL (80-100); Monocytes Absolute Auto 100 /uL (0-900); Neutrophils Absolute Auto 4500 /uL (1500-7000); Neutrophils Percent Auto 89.7 % (50-75); Platelet Count 339 X10^3/uL (150-400)
[2023-03-06] MEDS: MIDODRINE HCL 5 MG TABLET 10 MG PO ×2 (06:18→21:23)
--- NOTE | 2023-03-06 06:35 | PC.NURSE ---
second shift supervisor RN note Pt arrived from ER via stretcher, A&Ox4, FLORES with weakness, states blurred vision, hypotensive overnight, notified and orders for midodrine given, PPPx4, mild lower leg edema, SR 60-80s, lungs wheezes t/o and decreased, O2 sats >88% on heated highflow 30L/30% FIO2, SOBOE, intermittent cough for yellow sputum, abd soft with BS, voiding clear yellow urine in urinal, skin extremely dry and flaky all over, poor hygiene, pt refused full skin assessment and refuses to take his jeans off, meds and labs as ordered, RAC IV site patent with IV fluids infusing, denies pain, call machado within reach, bed alarm on, continue to monitor
[2023-03-06] MEDS: SODIUM CHLORIDE 0.9% 250 ML 1000 ML IV (06:46)
[2023-03-06] MEDS: BUDESONIDE 0.5 MG/2 ML NEB INH ×2 (07:36→19:30)
[2023-03-06] MEDS: ALBUTEROL/IPRATROPIUM 3 ML AMPUL INH ×3 (07:36→19:30)
[2023-03-06] MEDS: PANTOPRAZOLE DR 40 MG TABLET PO (07:57)
--- NOTE | 2023-03-06 09:04 | PM.PN.1 ---
Subjective Subjective Interval history: Patient now on 2L NC. BP still soft. Will order 1L bolus. Patient has no complaints. Says blurry vision has resolved. Exam Vital Signs (past 8 hours): - 03/06/23 01:30 03/06/23 01:30 03/06/23 02:00 Temperature Pulse Rate 74 Respiratory Rate 21 Blood Pressure 77/50 L 82/54 L Pulse Oximetry 96 Oxygen Delivery Method Oxygen Flow Rate Fraction of Inspired Oxygen 03/06/23 02:00 03/06/23 02:30 03/06/23 02:31 Temperature Pulse Rate 71 74 Respiratory Rate 19 29 H Blood Pressure 67/48 L Pulse Oximetry 96 96 Oxygen Delivery Method Oxygen Flow Rate Fraction of Inspired Oxygen 03/06/23 02:31 03/06/23 03:00 03/06/23 03:00 Temperature Pulse Rate 76 77 Respiratory Rate 26 H 26 H Blood Pressure 61/45 L Pulse Oximetry 96 95 Oxygen Delivery Method Oxygen Flow Rate Fraction of Inspired Oxygen 03/06/23 03:30 03/06/23 03:30 03/06/23 04:00 Temperature Pulse Rate 76 Respiratory Rate 26 H Blood Pressure 86/53 L 78/52 L Pulse Oximetry 95 Oxygen Delivery Method Oxygen Flow Rate Fraction of Inspired Oxygen 03/06/23 04:00 03/06/23 04:30 03/06/23 04:30 Temperature 97.9 F Pulse Rate 70 72 Respiratory Rate 27 H 24 Blood Pressure 80/53 L Pulse Oximetry 96 95 Oxygen Delivery Method Oxygen Flow Rate 30 Fraction of Inspired Oxygen 03/06/23 04:30 03/06/23 05:00 03/06/23 05:00 Temperature Pulse Rate 77 Respiratory Rate 16 25 H Blood Pressure 72/52 L Pulse Oximetry 93 95 Oxygen Delivery Method Oxygen Flow Rate Fraction of Inspired Oxygen 03/06/23 05:30 03/06/23 05:30 03/06/23 06:00 Temperature Pulse Rate 72 Respiratory Rate 27 H Blood Pressure 77/51 L 74/54 L Pulse Oximetry 93 Oxygen Delivery Method Oxygen Flow Rate 30 Fraction of Inspired Oxygen 03/06/23 06:00 03/06/23 06:30 03/06/23 06:30 Temperature Pulse Rate 83 73 Respiratory Rate 33 H 39 H Blood Pressure 93/60 Pulse Oximetry 96 93 Oxygen Delivery Method Oxygen Flow Rate 30 30 Fraction of Inspired Oxygen 03/06/23 07:36 03/06/23 07:48 Temperature Pulse Rate 18 L Respiratory Rate 67 H 16 Blood Pressure Pulse Oximetry 94 97 Oxygen Delivery Method Heated High Flow Oxygen Flow Rate 30 Fraction of Inspired Oxygen 30 Fraction of Inspired Oxygen 30 SaO2/FiO2 Ratio 313 Oxygen Delivery Method Heated High Flow Oxygen Flow Rate 30 Narrative Exam Narrative: GEN: eduntulous, disheveled male who has conversational dyspnea HEENT: moist mucous membranes, PERRL NECK: trachea midline, no JVD PULM: coarse breath sounds at bases, poor air movement, barreled chest CV: regular rate and rhythm, no murmurs ABD: soft, nontender, nondistended, no organomegaly EXT: warm and well perfused with no edema NEURO: awake, alert, oriented, no focal deficits Objective Labs 03/06/23 03:20 03/06/23 03:20 Labs: Laboratory Results - last 24 hr 03/05/23 03/05/23 03/05/23 17:00 17:14 17:30 WBC 13.7 H RBC 5.11 Hgb 15.7 Hct 47.1 MCV 92.1 MCH 30.8 MCHC 33.4 RDW 13.6 Plt Count 393 Neut % (Auto) 73.1 Lymph % (Auto) 10.3 L [place] % (Auto) 13.3 Eos % (Auto) 2.1 Baso % (Auto) 1.2 Neut # (Auto) 01109 H Lymph # (Auto) 1400 [place] # (Auto) 1800 H Eos # (Auto) 300 Baso # (Auto) 200 H PT 12.4 INR 1.1 D-Dimer 483 ABG Sample Site Right radial ABG pH 7.38 ABG pCO2 47.9 H ABG pO2 64 L ABG HCO3 28 H ABG Total CO2 29 H ABG O2 Saturation 91 L ABG Base Excess 3.0 FiO2 28 Sodium 130 L Potassium 4.6 Chloride 93 L Carbon Dioxide 28 BUN 9 Creatinine 0.57 L Estimated GFR > 60 BUN/Creatinine Ratio 15.8 Glucose 93 Lactate 1.2 Calcium 9.6 Magnesium Total Bilirubin 0.8 AST 27 ALT 13 Alkaline Phosphatase 80 Troponin I < 0.012 NT-Pro-B Natriuret Pep 561 H Total Protein 7.4 Albumin 4.1 Globulin 3.3 Albumin/Globulin Ratio 1.2 Procalcitonin 0.05 Nasal Screen MRSA (PCR) SARS-CoV-2 (PCR) Negative Influenza A (RT-PCR) Flu a negative Influenza B (RT-PCR) Flu b negative RSV (PCR) Negative 03/05/23 03/06/23 21:45 03:20 WBC 5.0 D RBC 4.50 Hgb 13.6 Hct 41.3 MCV 91.8 MCH 30.3 MCHC 33.0 RDW 14.0 Plt Count 339 Neut % (Auto) 89.7 H Lymph % (Auto) 7.9 L [place] % (Auto) 2.0 L Eos % (Auto) 0.0 L Baso % (Auto) 0.4 Neut # (Auto) 4500 Lymph # (Auto) 400 L [place] # (Auto) 100 Eos # (Auto) 0 Baso # (Auto) 0 PT INR D-Dimer ABG Sample Site ABG pH ABG pCO2 ABG pO2 ABG HCO3 ABG Total CO2 ABG O2 Saturation ABG Base Excess FiO2 Sodium 133 L Potassium 4.3 Chloride 103 Carbon Dioxide 27 BUN 9 Creatinine 0.49 L Estimated GFR > 60 BUN/Creatinine Ratio 18.4 Glucose 261 H D Lactate Calcium 8.7 Magnesium 1.9 Total Bilirubin 0.5 AST 18 ALT 13 Alkaline Phosphatase 53 Troponin I NT-Pro-B Natriuret Pep Total Protein 6.1 L Albumin 3.1 L Globulin 3.0 Albumin/Globulin Ratio 1.0 Procalcitonin Nasal Screen MRSA (PCR) Not detected SARS-CoV-2 (PCR) Influenza A (RT-PCR) Influenza B (RT-PCR) RSV (PCR) [facility] Medical History Well adult exam Medicare annual wellness visit, subsequent Eyelid lesion, benign Seborrheic keratoses End stage COPD Depression Tobacco use Alcohol dependence Incidental lung nodule, > 3mm and < 8mm Atypical ductal hyperplasia of right breast Acute bronchitis Chronic cough (2017) Fractures (Unknown) Schizophrenia (Unknown) Substance abuse (Unknown) Partial blindness (Unknown) Surgical History Hx of hernia repair History of open reduction and internal fixation (ORIF) procedure (Unknown) Social History household members: none Smoking Status: Current every day smoker Tobacco: How many years used: 45 quit status: considering quitting second hand exposure: Yes alcohol intake: current substance use type: does not use Assessment & Plan Assessment & Plan narrative: # acute hypoxemic respiratory failure likely multifactorial due to combination of acute COPD exacerbation in the setting of smoking and further complicated by superimposed bronchitis/early pneumonia # hypotension with amaurosis fugax # acute COPD exacerbation # acute bronchitis, negative resp PCR # chronic smoker Continue with IV Rocephin/Zithromax initiated in the emergency room and send the sputum for cultures. Continue with IV Solu-Medrol with nebulizers and oxygen supplementation to maintain O2 saturation above 90%. Add inhaled steroids as well. Advised to quit smoking and initiate nicotine patch. Gave 1L NS bolus for continued hypotension. Unclear cause but may be dehydration. Midodrine 10mg TID continued. # history of alcohol abuse. Currently not in withdrawal. Monitor for now and add vitamin B1 # history of carotid artery stenosis. Resumed the home aspirin/statin. No focal neurodeficits. Goals of care reviewed with the patient. He has requested DNR status to be maintained Dispo: Likely home in 2-3 days. Quality VTE Deep Vein Thrombosis/Pulmonary Embolism Present on Admission: No
[2023-03-06] MEDS: ENOXAPARIN 40 MG/0.4 ML SYRINGE SUBCUT (09:12)
[2023-03-06] MEDS: AZITHROMYCIN 250 MG TABLET PO (09:12)
[2023-03-06] MEDS: THIAMINE 100 MG TABLET PO (09:12)
[2023-03-06] MEDS: cefTRIAXone 1,000 MG in SODIUM CHLORIDE 0.9% 100 ML 200 MG IV (09:44)
[2023-03-06 10:32] LABS: Adenovirus Not Detected (Not Detect); B. parapertussis Not Detected (Not Detecte); Bordetella pertussis Not Detected (Not Detect); Chlamydophila pneumoniae Not Detected (Not Detect); Coronavirus 229E Not Detected (Not Detect); Coronavirus HKU1 Not Detected (Not Detect); Coronavirus NL 63 Not Detected (Not Detect); Coronavirus OC43 Not Detected (Not Detect); Human Metapneumovirus Not Detected (Not Detect); Human Rhinovirus/Enterovirus Not Detected (Not Detect); Influenza A Not Detected (Not Detect); Influenza B Not Detected (Not Detect); Mycoplasma pneumoniae Not Detected (Not Detect); Parainfluenza Virus 1 Not Detected (Not Detect); Parainfluenza Virus 2 Not Detected (Not Detect); Parainfluenza Virus 3 Not Detected (Not Detect); Parainfluenza Virus 4 Not Detected (Not Detect); Respiratory Syncytial Virus Not Detected (Not Detect); SARS- CoV-2 Not Detected (Not Detecte)
[2023-03-06] MEDS: SODIUM CHLORIDE 0.9% 1,000 ML 70 ML IV (13:19)
[2023-03-06] MEDS: SODIUM CHLORIDE 0.9% 250 ML 21 ML IV (13:20)
[2023-03-06] MEDS: SODIUM CHLORIDE 0.9% FLUSH 10 ML IV ×2 (13:21→13:37)
[2023-03-06] MEDS: SODIUM CHLORIDE 0.9% 1,000 ML 1000 ML IV (15:48)
--- NOTE | 2023-03-06 21:12 | PM.PN.1 ---
Subjective Subjective Interval history: called for hypotension added midodrine, albumin and a bolus of NS 500cc Exam Vital Signs (past 8 hours): - 03/06/23 13:30 03/06/23 13:33 03/06/23 13:33 Temperature Pulse Rate 93 H 90 Respiratory Rate 32 H 30 H Blood Pressure 86/50 L Pulse Oximetry 92 92 Oxygen Delivery Method Oxygen Flow Rate 03/06/23 14:00 03/06/23 14:00 03/06/23 14:30 Temperature Pulse Rate 74 Respiratory Rate 20 Blood Pressure 88/59 L 91/53 L Pulse Oximetry 94 Oxygen Delivery Method Oxygen Flow Rate 03/06/23 14:30 03/06/23 14:55 03/06/23 15:00 Temperature Pulse Rate 83 74 Respiratory Rate 30 H 18 Blood Pressure 80/52 L Pulse Oximetry 92 92 Oxygen Delivery Method Oxygen Flow Rate 03/06/23 15:00 03/06/23 15:30 03/06/23 15:30 Temperature Pulse Rate 84 81 Respiratory Rate 26 H 23 Blood Pressure 85/53 L Pulse Oximetry 92 92 Oxygen Delivery Method Oxygen Flow Rate 03/06/23 16:00 03/06/23 16:00 03/06/23 16:30 Temperature Pulse Rate 81 75 Respiratory Rate 25 H 20 Blood Pressure 88/53 L Pulse Oximetry 92 93 Oxygen Delivery Method Oxygen Flow Rate 03/06/23 16:30 03/06/23 16:53 03/06/23 16:53 Temperature Pulse Rate 80 Respiratory Rate 25 H Blood Pressure 99/59 L 95/59 L Pulse Oximetry 92 Oxygen Delivery Method Oxygen Flow Rate 03/06/23 17:00 03/06/23 17:00 03/06/23 17:30 Temperature Pulse Rate 80 74 Respiratory Rate 29 H 22 Blood Pressure 91/59 L Pulse Oximetry 93 91 Oxygen Delivery Method Oxygen Flow Rate 03/06/23 17:30 03/06/23 18:00 03/06/23 18:00 Temperature Pulse Rate 74 Respiratory Rate 23 Blood Pressure 101/60 101/59 L Pulse Oximetry 90 L Oxygen Delivery Method Oxygen Flow Rate 03/06/23 18:30 03/06/23 18:30 03/06/23 19:00 Temperature Pulse Rate 77 Respiratory Rate 24 Blood Pressure 94/59 L Pulse Oximetry 92 Oxygen Delivery Method Nasal Cannula Oxygen Flow Rate 03/06/23 19:00 03/06/23 19:00 03/06/23 19:30 Temperature Pulse Rate 76 84 Respiratory Rate 21 26 H Blood Pressure 93/56 L Pulse Oximetry 91 93 Oxygen Delivery Method Oxygen Flow Rate 03/06/23 19:30 03/06/23 19:59 03/06/23 20:00 Temperature Pulse Rate 94 H Respiratory Rate 28 H Blood Pressure 89/57 L 87/55 L Pulse Oximetry 88 L Oxygen Delivery Method Nasal Cannula Oxygen Flow Rate 2 03/06/23 20:00 03/06/23 20:01 03/06/23 20:10 Temperature 97.5 F L Pulse Rate 95 H 102 H 100 H Respiratory Rate 31 H 24 32 H Blood Pressure 95/62 Pulse Oximetry 97 92 91 Oxygen Delivery Method Oxygen Flow Rate 30 03/06/23 20:10 03/06/23 20:30 03/06/23 20:30 Temperature Pulse Rate 114 H Respiratory Rate 35 H Blood Pressure 95/62 101/60 Pulse Oximetry 87 L Oxygen Delivery Method Oxygen Flow Rate 03/06/23 21:00 03/06/23 21:00 Temperature Pulse Rate 106 H Respiratory Rate 33 H Blood Pressure 76/47 L Pulse Oximetry 89 L Oxygen Delivery Method Oxygen Flow Rate 30 Fraction of Inspired Oxygen 30 SaO2/FiO2 Ratio 313 Oxygen Delivery Method Nasal Cannula Oxygen Flow Rate 30 Objective Labs 03/06/23 03:20 03/06/23 03:20 Labs: Laboratory Results - last 24 hr 03/05/23 03/06/23 03/06/23 21:45 03:20 09:35 WBC 5.0 D RBC 4.50 Hgb 13.6 Hct 41.3 MCV 91.8 MCH 30.3 MCHC 33.0 RDW 14.0 Plt Count 339 Neut % (Auto) 89.7 H Lymph % (Auto) 7.9 L [place] % (Auto) 2.0 L Eos % (Auto) 0.0 L Baso % (Auto) 0.4 Neut # (Auto) 4500 Lymph # (Auto) 400 L [place] # (Auto) 100 Eos # (Auto) 0 Baso # (Auto) 0 Sodium 133 L Potassium 4.3 Chloride 103 Carbon Dioxide 27 BUN 9 Creatinine 0.49 L Estimated GFR > 60 BUN/Creatinine Ratio 18.4 Glucose 261 H D Calcium 8.7 Magnesium 1.9 Total Bilirubin 0.5 AST 18 ALT 13 Alkaline Phosphatase 53 Total Protein 6.1 L Albumin 3.1 L Globulin 3.0 Albumin/Globulin Ratio 1.0 Nasal Screen MRSA (PCR) Not detected Chlamy pneumoniae PCR Not detected Adenovirus (PCR) Not detected B.parapertussis DNA PCR Not detected Coronavirus OC43 (PCR) Not detected Coronavirus HKU1 (PCR) Not detected Coronavirus 229E (PCR) Not detected SARS-CoV-2 (PCR) Not detected Coronavirus NL63 (PCR) Not detected Human Metapneumovir PCR Not detected Influenza Type A (PCR) Not detected Influenza Type B (PCR) Not detected M. pneumoniae (PCR) Not detected Parainfluenza 1 (PCR) Not detected Parainfluenza 2 (PCR) Not detected Parainfluenza 3 (PCR) Not detected Parainfluenza 4 (PCR) Not detected RSV (PCR) Not detected Entero/Rhino (PCR) Not detected PFSH Medical History Well adult exam Medicare annual wellness visit, subsequent Eyelid lesion, benign Seborrheic keratoses End stage COPD Depression Tobacco use Alcohol dependence Incidental lung nodule, > 3mm and < 8mm Atypical ductal hyperplasia of right breast Acute bronchitis Chronic cough (2017) Fractures (Unknown) Schizophrenia (Unknown) Substance abuse (Unknown) Partial blindness (Unknown) Surgical History Hx of hernia repair History of open reduction and internal fixation (ORIF) procedure (Unknown) Social History household members: none Smoking Status: Current every day smoker Tobacco: How many years used: 45 quit status: considering quitting second hand exposure: Yes alcohol intake: current substance use type: does not use Quality VTE Deep Vein Thrombosis/Pulmonary Embolism Present on Admission: No
[2023-03-06] MEDS: SODIUM CHLORIDE 0.9 % 20 ML VIAL 500 ML IV (21:21)
[2023-03-06] MEDS: ALBUMIN HUMAN 25 GM/100 ML VIAL IV (21:24)
[2023-03-07] VITALS (45 sets, daily range): BP systolic 91–122; BP diastolic 59–78; PULSE 76–108; RESP 19–33; TEMP 36.6–37.3; O2SAT 86–97
[2023-03-07] MEDS: ALBUTEROL/IPRATROPIUM 3 ML AMPUL INH ×6 (01:19→23:15)
[2023-03-07 04:49] LABS: Hematocrit 37.9 % (41-53); Hemoglobin 12.7 g/dL (13.5-17.5); Mean Corpuscular HGB Conc 33.4 % (30-36); Mean Corpuscular Hemoglobin 30.9 PG (26-34); Mean Corpuscular Volume 92.6 fL (80-100); Platelet Count 317 X10^3/uL (150-400); Red Blood Cell Count 4.09 X10^6/uL (4.5-5.9); White Blood Cell Count 11.4 X10^3/uL (4.5-11.0)
[2023-03-07 04:51] LABS: Add Manual Diff / Slide Review YES
[2023-03-07 05:05] LABS: BUN Creatinine Ratio 20.8 (6-22); Blood Urea Nitrogen 11 mg/dL (9-20); Carbon Dioxide 29 mmol/L (22-32); Chloride 104 mmol/L (98-107); Estimated Glomerular Filt Rate > 60 mL/min (>60); Glucose 149 mg/dL (80-110); HEMOLYSIS < 15 (0-50); Potassium 4.4 mmol/L (3.4-5.1); Sodium 137 mmol/L (137-145)
[2023-03-07 05:07] LABS: Neutrophils Absolute Manual 10716 /uL (3000-5900); RBC Morphology Normal Morphology; Total Cells Counted 100
--- NOTE | 2023-03-07 08:57 | DI.CT.S_ITS ---
PROCEDURE: CT ANGIO CHEST PE PROTOCOL INDICATIONS: COPD exac, not improving on HFNC TECHNIQUE: After the administration of intravenous contrast, 2 mm thick sections acquired from the pulmonary apices to the posterior costophrenic angles. 3-dimensional maximum intensity projection (MIP) coronal and sagittal reformats were then acquired through the thorax. For radiation dose reduction, the following was used: automated exposure control, adjustment of mA and/or kV according to patient size. COMPARISON: [facility], CT, CT ANGIO CHEST PE PROTOCOL, 09/06/2020, 13:46. CT, CT ANGIO CHEST ABDOMEN, 04/18/2021, 14:03. [facility], CR, XR CHEST 1V, 03/05/2023, 16:48. [facility], CT, CT ANGIO CHEST PE PROTOCOL, 04/17/2021, 16:00. FINDINGS: Image quality: Diagnostic. Pulmonary arteries: Pulmonary arteries are normal in size, and demonstrate no intraluminal filling defects to suggest central pulmonary embolism. Lungs and pleura: Small pleural effusions are present bilaterally. There is bilateral interstitial thickening likely secondary to a combination of pulmonary edema or chronic interstitial pneumonia. Chronic innumerable small nodules are present, predominantly in lower lobes. Mild bronchiectasis in lower lobes bilaterally. There is a 0.9 cm spiculated nodule in the left upper lobe (series 5, image 136), suspicious for lung cancer. Nodule has slightly enlarged since 04/17/19 22. Small pleural effusions bilaterally. No pneumothorax. There is a calcified density in the right lower lobe just above the right hemidiaphragm. Mediastinum: Heart size is normal, without pericardial effusion. Moderate coronary artery atherosclerosis. There is mediastinal or hilar adenopathy. Thoracic aorta is normal in caliber and enhancement. Esophagus is normal in caliber. Small hiatal hernia. Bones and chest wall: No suspicious bony lesions. Ribs and thoracic spine appear intact throughout. No axillary or supraclavicular adenopathy. No thyroid nodules which require sonographic follow up, per consensus guidelines. Upper Abdomen: Visualized upper abdominal solid organs appear normal in the early arterial phase of enhancement. IMPRESSION: 1. No evidence for pulmonary embolism. 2. A 0.9 cm spiculated nodule in the left upper lobe suspicious for for lung cancer. 3. Chronic pulmonary abnormalities superimposed on cute interstitial thickening, likely a combination of pulmonary edema and chronic interstitial lung disease. 4. Mediastinal and bilateral hilar lymphadenopathy. Differential diagnoses are infection, inflammatory process, such as sarcoidosis and neoplasm such as in the form or metastasis. Recommend clinical correlation and follow up. 5. Small pleural effusions bilaterally. 6. Moderate coronary artery atherosclerosis. Dictated by: Alis Reyna M.D. on 03/07/2023 at 9:41 Approved by: Alis Reyna M.D. on 03/07/2023 at 9:56
[2023-03-07] MEDS: BUDESONIDE 0.5 MG/2 ML NEB INH ×2 (10:00→19:25)
[2023-03-07] MEDS: THIAMINE 100 MG TABLET PO (10:00)
[2023-03-07] MEDS: cefTRIAXone 1,000 MG in SODIUM CHLORIDE 0.9% 100 ML 200 MG IV (10:00)
[2023-03-07] MEDS: AZITHROMYCIN 250 MG TABLET PO (10:00)
[2023-03-07] MEDS: ENOXAPARIN 40 MG/0.4 ML SYRINGE SUBCUT (10:01)
[2023-03-07] MEDS: PANTOPRAZOLE DR 40 MG TABLET PO (10:03)
[2023-03-07] MEDS: MORPHINE 2 MG/ML INJ IV (11:11)
[2023-03-07] MEDS: LORazepam 2 MG/ML INJ 1 MG IV ×2 (11:39→15:04)
[2023-03-07] MEDS: MORPHINE 4 MG/ML INJ IV ×6 (12:32→19:05)
--- NOTE | 2023-03-07 15:45 | CM.DANOTE ---
Patient is a 72 year old male who admitted 03/05/23 to the care of the hospitalist team. PCP: Dr. Potter. Payer: confirmed: [facility]. Per MD, pt long time smoker, COPD, ETOH, and admitted for resp failure, COPD exac and possible pneumonia. Getting CT scan today to r/o PEs. After discussion with MD, pt determined end stage for his COPD and not able to wean off HHFO2 and having air hunger and needing morphine and pt has made the decision for Comfort Measures. Pt not yet able to wean off High Flow but pt anticipated to in the hospital in the next 24-48 hours. Patient came to the hospital via ambulance secondary to having increased shortness of breath. Patient's sats had been in the low 80s when EMS had arrived. Patient is a daily drinker and smoker. He was diagnosed with acute on chronic COPD exacerbation with hypoxemic respiratory failure, possibility of pneumonia. Met with patient in his room. He is alert and oriented, but now on HHF O2, laying in bed. Confirmed that he resides on [facility] alone, has a friend named Jose Alfaro, that also resides on [facility] as well as long time friend Asya who is bedside now. He is independent, drives, and does have an oxygen concentrator at home, as well as a generator. SW explained the barriers to pt discharge from the hospital to bedside friend Asya based on pt's current oxygen needs and insurance not covering SNF for Comfort Measures. Pt participates briefly in discussion and confirms he is mostly comfortable but might need increased morphine. Plan: SW to follow for pt to here unless he stabilizes on lower oxygen requirements to attempt discharge to SNF facility for comfort measures. ALFONSO Mariscal Discharge Planning/Care Management CM Discharge Assessment Start: 03/07/23 15:43 Freq: Status: Active Protocol: Document 03/07/23 15:43 BF (Rec: 03/07/23 15:45 BF [id number]) Discharge Planning Assessment Assigned Clinical Practitioner ALFONSO Meadows DPOA/Assigned Designee Name none Advance Directives? No Advance Directives on File No History Provided By Patient,Friend,Medical Record Has Patient been admitted in last 30 No days? Prior Living Arrangements House Household Members none Type of transporation used prior to Relies on Others admit Independent with ADL's Yes Is patient alert and oriented? Yes Caregiver for Another No Barriers to Discharge No Discharge Plan Pt expected to in Hospital Whiteboard Updated in Patient Room with Yes name and ext. # of Clinical Practitioner Review Status In Process Please Provide Date Initial DC 03/07/23 Assessment Was Performed Next Review Type Continued Stay Review
--- NOTE | 2023-03-07 16:31 | PM.PN.1 ---
Subjective Subjective Interval history: Patient's work of breathing becoming worse and worse, and becomes cyanotic with any removal of HFNC. Spoke with patient for 16 minutes about his goals, and that his lungs are likely not going to improve. He is opting for comfort care and to use morphine for air hunger. He understands he will likely pass away soon and is at peace with it. Morphine IV ordered and ativan for anxiety and comfort orders placed. Exam Vital Signs (past 8 hours): - 03/07/23 08:45 03/07/23 08:45 03/07/23 09:00 Temperature 99.2 F Pulse Rate 96 H 94 H Respiratory Rate 28 H 24 Blood Pressure 103/74 98/73 Pulse Oximetry 90 L 94 Oxygen Delivery Method Oxygen Flow Rate Fraction of Inspired Oxygen 03/07/23 10:09 03/07/23 12:13 03/07/23 15:28 Temperature Pulse Rate 94 H 95 H 93 H Respiratory Rate 26 H 24 20 Blood Pressure 122/73 Pulse Oximetry 95 96 94 Oxygen Delivery Method High Flow Nasal Cannula High Flow Nasal Cannula Oxygen Flow Rate 50 45 Fraction of Inspired Oxygen 40 35 Fraction of Inspired Oxygen 35 SaO2/FiO2 Ratio 268 Oxygen Delivery Method High Flow Nasal Cannula Oxygen Flow Rate 45 Narrative Exam Narrative: GEN: eduntulous, disheveled male who has conversational dyspnea HEENT: moist mucous membranes, PERRL NECK: trachea midline, no JVD PULM: coarse breath sounds at bases, poor air movement, barreled chest CV: regular rate and rhythm, no murmurs ABD: soft, nontender, nondistended, no organomegaly EXT: warm and well perfused with no edema NEURO: awake, alert, oriented, no focal deficits Objective Labs 03/07/23 04:00 03/07/23 04:00 Labs: Laboratory Results - last 24 hr 03/07/23 04:00 WBC 11.4 H D RBC 4.09 L Hgb 12.7 L Hct 37.9 L MCV 92.6 MCH 30.9 MCHC 33.4 RDW 14.0 Plt Count 317 Neut % (Auto) Not Reportable Lymph % (Auto) Not Reportable [place] % (Auto) Not Reportable Eos % (Auto) Not Reportable Baso % (Auto) Not Reportable Lymph # (Auto) Not Reportable [place] # (Auto) Not Reportable Baso # (Auto) Not Reportable Total Counted 100 Seg Neutrophils % 94.0 H Lymphocytes % (Manual) 2.0 L Monocytes % (Manual) 4.0 Neutrophils # (Manual) 48216 H RBC Morphology Normal morphology Sodium 137 Potassium 4.4 Chloride 104 Carbon Dioxide 29 BUN 11 Creatinine 0.53 L Estimated GFR > 60 BUN/Creatinine Ratio 20.8 Glucose 149 H D Calcium 9.0 PFSH Medical History Well adult exam Medicare annual wellness visit, subsequent Eyelid lesion, benign Seborrheic keratoses End stage COPD Depression Tobacco use Alcohol dependence Incidental lung nodule, > 3mm and < 8mm Atypical ductal hyperplasia of right breast Acute bronchitis Chronic cough (2017) Fractures (Unknown) Schizophrenia (Unknown) Substance abuse (Unknown) Partial blindness (Unknown) Surgical History Hx of hernia repair History of open reduction and internal fixation (ORIF) procedure (Unknown) Social History household members: none Smoking Status: Current every day smoker Tobacco: How many years used: 45 quit status: considering quitting second hand exposure: Yes alcohol intake: current substance use type: does not use Assessment & Plan Assessment & Plan narrative: # acute hypoxemic respiratory failure likely multifactorial due to combination of acute COPD exacerbation in the setting of smoking and further complicated by superimposed bronchitis/early pneumonia -on 03/07 patient's work of breathing much worse and he does not want intubation. He is electing for comfort care with morphine for air hunger and ativan for anxiety after GOD discussion. -supp O2 for comfort # hypotension with amaurosis fugax, improved with IVF # end-stage COPD with exacerbation # acute bronchitis, negative resp PCR # chronic smoker # comfort care # history of alcohol abuse. Currently not in withdrawal. # history of carotid artery stenosis. # likely lung cancer -CTPA with spiculated 0.9cm nodule suspicious for lung cancer Goals of care reviewed with the patient. He has requested DNR and pursuing comfort care. Dispo: Comfort care. Quality VTE Deep Vein Thrombosis/Pulmonary Embolism Present on Admission: No
[2023-03-07] MEDS: diazePAM 10 MG/2 ML SYRINGE 5 MG IV ×2 (16:43→18:31)
[2023-03-08] MEDS: MORPHINE 4 MG/ML INJ IV ×5 (01:34→09:33)
[2023-03-08] MEDS: diazePAM 10 MG/2 ML SYRINGE 5 MG IV ×5 (02:53→12:59)
[2023-03-08 08:07] VITALS: BP 97/68; PULSE 98; RESP 22; TEMP 37.6; O2SAT 76
[2023-03-08] MEDS: MORPHINE 50 MG in DEXTROSE 5 % IN WATER 45 ML IV (09:16)
[2023-03-08] MEDS: MORPHINE 50 MG in DEXTROSE 5 % IN WATER 45 ML 12 MG IV (13:11)
--- NOTE | 2023-03-08 15:05 | PC.NURSE ---
1427 Pt , verified by auscultation, Dr Martinez and charge nurse Kylee notified, will contact the next of kin. Waiting for call back from the company picking up patient as he is donating his body to medical science. RIP
--- NOTE | 2023-03-08 15:09 | CM.DPC ---
DCP Per MD, pt was weaned off the high flow oxygen to NC and increased his morphine per pt's pain and discomfort and anticipate pt will today. Pt has had multiple supportive friends bedside and per RN pt around 1430 today. thaw shed heater tender calling the number on pt's card per pt's request to have his body donated to science and for collection of the body. RN plans to call pt's contacts with update on pt passing. ALFONSO Mariscal
--- NOTE | 2023-03-08 15:33 | PM.DDS.1 ---
Discharge Summary History of Illness Narrative: Per history and physical: 72 years old male with chronic smoker with a past medical history of COPD, hypertension, carotid stenosis, alcohol use and other medical issues was brought to the emergency room for worsening shortness of breath since the past few hours with blood region. Reports that he has had episodes of blurry vision for the past several months but they eventually resolved. Denies any recent fall or trauma. No dizziness or loss of consciousness. Does have cough which is productive with yellowish mucoid sputum. Denies any chest pain palpitations dizziness or loss of consciousness. Denies any nausea vomiting or abdominal pain. Has oxygen at home which he uses intermittently and not sure that the amount of oxygen that he is on at home. Noted to be tachypneic and hypoxic on arrival needing high flow oxygen at 30 L with FiO2 of 26% to maintain O2 saturation above 89%. Labs revealed a white count of greater than 13,000. Chest x-ray shows chronic interstitial changes with hyperinflation. CT head shows no acute process. Patient was initiated on IV Solu-Medrol with nebulizers/IV Rocephin/Zithromax for possible superimposed acute bronchitis and admitted for further evaluation Hospital Course Date of Admission: 03/05/23 19:26 Date of : 03/08/23 Primary care provider: Jean Claude Potter, Discharge Diagnosis: 1. Acute hypoxic respiratory failure 2. End-stage COPD with exacerbation 3. Acute bronchitis 4. Tobacco dependence 5. Alcohol dependence, no evidence of withdrawal 6. Carotid artery stenosis 7. Spiculated lung mass, concerning for malignancy Hospital Course: Patient presented to the hospital on March 05 complaining of increasing shortness of breath, blurred vision, cough productive of yellow sputum. Required high-flow oxygen via nasal cannula at 30 liters/minute to maintain a saturation of 89%. Was placed on IV steroids, nebulizer treatments, and antibiotics. On the day following admission, he was actually improved and on 2 liters/minute. However, he developed hypotension that was treated with IV fluids and albumin. He was transferred to the intensive care unit. On March 07, he developed increased work of breathing, required increasing oxygen needs, and would become cyanotic with any removal of high-flow nasal cannula. After further discussion with Dr. Villarreal, patient made decision to transition to comfort directed care. He was placed on IV morphine and diazepam as needed I was notified by nursing that the patient at. He required 36 mg of IV morphine in 21 hours between March 07 and the morning of March 08. He was subsequently placed on a morphine infusion. He ultimately required significant titration of the morphine for his air hunger. He showed ongoing worsening cyanosis and signs of impending . Patient at 2:27 p.m.. Objective Labs 03/07/23 04:00 03/07/23 04:00
== END 2023-03-08 14:27 | disposition expired | DRG 190 ==
LOC: ED 18:25 → AC 19:27 → ICU 21:18
PROVIDERS: Emergency Medicine; Student in an Organized Health Care Education/Training Program; Admitting Provider Internal Medicine; Emergency Provider Emergency Medicine; PCP Family Medicine; Referring Provider Emergency Medicine; Visit Provider Internal Medicine
DX: J44.0 Chronic obstructive pulmonary disease with (acute) lower respiratory infection (principal); J96.01 Acute respiratory failure with hypoxia; J20.9 Acute bronchitis, unspecified; J44.1 Chronic obstructive pulmonary disease with (acute) exacerbation; I95.9 Hypotension, unspecified; F10.21 Alcohol dependence, in remission; F17.210 Nicotine dependence, cigarettes, uncomplicated; Z86.79 Personal history of other diseases of the circulatory system; Z51.5 Encounter for palliative care; Z66 Do not resuscitate
CPT/HCPCS: 0241U; 36415; 36600; 70450; 71045; 71275; 80048; 80053; 82805; 82962; 83605; 83735; 83880; 84145; 84484; 85007; 85025; 85379; 85610; 87070; 87205; 87633; 87797; 93005; 93010; 94640; 96365; 96367; 96375; 99284; 99291; J0696; J1650; J2060; J2270; J2920; J2930; J3360; J7613; P9041; Q9967